=== PATIENT | female | born 1940 | race Caucasian/White ===

== ENCOUNTER → 2016-08-01 | Outpatient (REF) | payer MEDICARE ==
[2016-08-01 18:52] LABS: MEAN CORPUSCULAR HEMOGLOBIN 30.6 pg (27.0-33.0); MEAN CORPUSCULAR HGB CONC 31.1 g/dl (32.0-36.5); MEAN CORPUSCULAR VOLUME 98.4 fl (80.0-96.0); RED CELL DISTRIBUTION WIDTH 12.4 % (11.5-14.5); WHITE BLOOD COUNT 6.1 K/mm3 (4.0-10.0)
[2016-08-01 19:10] LABS: ALBUMIN 3.5 GM/DL (3.2-5.2); ALBUMIN/GLOBULIN RATIO 1.13 (1.00-1.93); ALKALINE PHOSPHATASE 92 U/L (45-117); ALT/SGPT 33 U/L (12-78); ANION GAP 6 MEQ/L (8-16); AST/SGOT 27 U/L (15-37); BILIRUBIN,TOTAL 0.5 MG/DL (0.2-1.0); BLOOD UREA NITROGEN 20 MG/DL (7-18); CALCIUM LEVEL 9.3 MG/DL (8.8-10.2); CARBON DIOXIDE LEVEL 32 MEQ/L (21-32); CHLORIDE LEVEL 103 MEQ/L (98-107); CHOLESTEROL LEVEL 153 MG/DL (<200); CREATININE FOR GFR 0.69 MG/DL (0.55-1.02); GLOMERULAR FILTRATION RATE > 60.0 (>39); GLUCOSE, FASTING 91 MG/DL (83-110); POTASSIUM SERUM 4.5 MEQ/L (3.5-5.1); SODIUM LEVEL 141 MEQ/L (136-145); TOTAL PROTEIN 6.6 GM/DL (6.4-8.2); TRIGLYCERIDES LEVEL 187 MG/DL (<150)
== END ==
LOC: M LAB REF 17:08
PROVIDERS: ATTEND Physician Assistant
DX: I25.10 Atherosclerotic heart disease of native coronary artery without angina pectoris (principal); I10 Essential (primary) hypertension; E78.00 Pure hypercholesterolemia, unspecified

== ENCOUNTER → 2016-08-12 | Outpatient (CLI) | payer MEDICARE ==
[2016-08-12 17:26] LABS: MAGNESIUM LEVEL 1.7 MG/DL (1.8-2.4)
== END ==
LOC: M WUC 14:54
PROVIDERS: ATTEND Physician Assistant
DX: I49.1 Atrial premature depolarization (principal)

== ENCOUNTER 2017-01-07 05:53 | Day surgery (SDC) | payer MEDICARE ==
[~2017-01-07] VITALS: Ht 152.4 cm; Wt 58.5 kg
[~2017-01-07 05:53] MED LIST: ASPI81CH32 PO; ATEN50TA2 PO; ATOR40TA75 PO; CLOB-49 EX; ENAL10TA2 PO; ESTR0.059 TOP; MULT1CHW39 PO; NITR0.4S14 SL; VENL37.598 PO; VITAD1000T PO; ZANTTAB PO
[2017-01-07] MEDS ORDERED: LR 1,000 ML IV ONE (06:15)
[2017-01-07] MEDS ORDERED: LIDOCAINE 1% MDV 20ML VIAL SC ONE (06:30)
[2017-01-07] MEDS ORDERED: MIDAZOLAM INJ 2 MG/2 ML VIAL (J2250) As Ordered ONE (07:06)
[2017-01-07] MEDS ORDERED: fentaNYL 100 MCG/2 ML INJECTION (J3010) As Ordered ONE (07:06)
[2017-01-07] MEDS ORDERED: LIDOCAINE W/EPINEPHRINE 1% 20ML VIAL As Ordered ONE (07:39)
[2017-01-07] MEDS ORDERED: LIDOCAINE 2% INJ 100 MG/5 ML SDV (FOR ANES.) As Ordered ONE (08:14)
[2017-01-07] MEDS ORDERED: PROPOFOL 200 MG/20 ML VIAL As Ordered ONE (08:14)
[2017-01-07] MEDS ORDERED: ePHEDrine SULFATE 25 MG/5 ML(5MG/ML) SYRINGE As Ordered ONE (08:14)
[2017-01-07] MEDS ORDERED: ONDANSETRON 4MG/2ML VIAL (J2405) As Ordered ONE (08:14)
[2017-01-07 09:30] VITALS: BP 130/99
--- NOTE | 2017-01-07 10:13 | RO ---
DATE OF PROCEDURE: 01/07/2017 PREOPERATIVE DIAGNOSIS: Recurrent left forehead mass. POSTOPERATIVE DIAGNOSIS: Recurrent left forehead mass. PROCEDURE PERFORMED: Excision of 3.5 cm left forfehead mass, and 4.0 cm layered skin closure. SURGEON: Dr. Trell Almendarez WAITER/WAITRESS TOURIST CLASS: ANESTHESIA: Local with 1% Xylocaine with epinephrine and monitored anesthesia care INDICATIONS FOR PROCEDURE: The patient is a 76-year-old woman with a long history of a subcutaneous mass of the left side of the forehead. She reports that she has had this excised twice before with findings of lipomatous tissue. This has been growing now for the last 20 years or so and she would like to have it removed. OPERATIVE PROCEDURE: The patient was placed supine on the operating table. She received sedation from anesthesia. The forehead was prepped and draped sterilely. 1% Xylocaine with epinephrine was infiltrated widely around the base of the lesion. An approximately 4 cm transverse incision was made over the center of the mass taking a small ellipse of skin. The incision was deepened into the subcutaneous tissues and then dissection proceeded superiorly and inferiorly elevating the skin off of the underlying fibrofatty mass. There was scarring evident from her two prior excisions, particularly beneath the superior flap. The incision was carried down to the underlying lesion. The edges of the mass were identified and the mass was elevated off of the underlying tissues and removed intact. At the center of the lesion there did not appear to be any remaining frontalis muscle or fascia between the lesion and the skull. The mass was 3.5 cm maximally. This was sent for permanent pathology. The skin was elevated slightly further on all sides to allow better approximation. A thinned portion of the skin along the inferior skin flap was excised by excising a rim of approximately 6 mm of skin. The wound was inspected for hemostasis, which was excellent. The skin edges were brought into apposition with multiple simple buried sutures of #4-0 chromic. The wound was then closed with a running subcuticular #5-0 Vicryl and Steri-Strips. A light dressing was applied. The patient tolerated the procedure well without apparent complication. She was awakened and transported to advanced recovery. [facility]
== END 2017-01-07 10:00 | disposition home or self-care (01) ==
LOC: M SDC 05:53
PROVIDERS: ATTEND Surgery
DX: R22.0 Localized swelling, mass and lump, head (principal); I10 Essential (primary) hypertension; E78.00 Pure hypercholesterolemia, unspecified; I25.2 Old myocardial infarction; R23.3 Spontaneous ecchymoses; L40.9 Psoriasis, unspecified; J44.9 Chronic obstructive pulmonary disease, unspecified; Z88.5 Allergy status to narcotic agent; Z91.048 Other nonmedicinal substance allergy status; Z79.899 Other long term (current) drug therapy; Z79.82 Long term (current) use of aspirin; Z87.891 Personal history of nicotine dependence
CPT/HCPCS: 11444; 12052; 88307; J2250; J2405; J3010

== ENCOUNTER → 2017-01-30 | Outpatient (CLI) | payer MEDICARE ==
[2017-01-30 17:32] LABS: ALBUMIN 3.6 GM/DL (3.2-5.2); ALBUMIN/GLOBULIN RATIO 1.03 (1.00-1.93); ALKALINE PHOSPHATASE 97 U/L (45-117); ALT/SGPT 34 U/L (12-78); ANION GAP 7 MEQ/L (8-16); AST/SGOT 24 U/L (15-37); BILIRUBIN,TOTAL 0.4 MG/DL (0.2-1.0); BLOOD UREA NITROGEN 23 MG/DL (7-18); CALCIUM LEVEL 8.9 MG/DL (8.8-10.2); CARBON DIOXIDE LEVEL 28 MEQ/L (21-32); CHLORIDE LEVEL 103 MEQ/L (98-107); CREATININE FOR GFR 0.75 MG/DL (0.55-1.02); GLOMERULAR FILTRATION RATE > 60.0 (>39); GLUCOSE, FASTING 91 MG/DL (83-110); POTASSIUM SERUM 4.4 MEQ/L (3.5-5.1); SODIUM LEVEL 138 MEQ/L (136-145); TOTAL PROTEIN 7.1 GM/DL (6.4-8.2)
== END ==
LOC: M WUC 14:24
PROVIDERS: ATTEND Physician Assistant
DX: I25.10 Atherosclerotic heart disease of native coronary artery without angina pectoris (principal); E78.2 Mixed hyperlipidemia; I10 Essential (primary) hypertension

== ENCOUNTER → 2017-08-21 | Outpatient (CLI) | payer MEDICARE ==
[2017-08-21 18:40] LABS: HEMOGLOBIN 14.6 g/dl (12.0-15.5); MEAN CORPUSCULAR HEMOGLOBIN 31.7 pg (27.0-33.0); MEAN CORPUSCULAR HGB CONC 32.4 g/dl (32.0-36.5); MEAN CORPUSCULAR VOLUME 97.6 fl (80.0-96.0); PLATELET COUNT, AUTOMATED 220 10^3/uL (150-450); RED BLOOD COUNT 4.61 10^6/uL (4.00-5.40); RED CELL DISTRIBUTION WIDTH 12.6 % (11.5-14.5); WHITE BLOOD COUNT 5.4 10^3/uL (4.0-10.0)
[2017-08-21 19:04] LABS: ALBUMIN 3.4 GM/DL (3.2-5.2); ALBUMIN/GLOBULIN RATIO 1.03 (1.00-1.93); ALKALINE PHOSPHATASE 90 U/L (45-117); ALT/SGPT 37 U/L (12-78); ANION GAP 6 MEQ/L (8-16); AST/SGOT 34 U/L (7-37); BILIRUBIN,TOTAL 0.5 MG/DL (0.2-1.0); BLOOD UREA NITROGEN 23 MG/DL (7-18); CALCIUM LEVEL 8.8 MG/DL (8.8-10.2); CARBON DIOXIDE LEVEL 29 MEQ/L (21-32); CHLORIDE LEVEL 107 MEQ/L (98-107); CHOLESTEROL LEVEL 148 MG/DL (<200); CHOLESTEROL RISK RATIO 2.901 (<5); CREATININE FOR GFR 0.75 MG/DL (0.55-1.30); GLOMERULAR FILTRATION RATE > 60.0 (>39); GLUCOSE, FASTING 85 MG/DL (70-100); HDL CHOLESTEROL 51 MG/DL (>40); LDL CHOLESTEROL 72.4 MG/DL (<100); MAGNESIUM LEVEL 1.8 MG/DL (1.8-2.4); NON-HDL-C 97 MG/DL; POTASSIUM SERUM 4.3 MEQ/L (3.5-5.1); SODIUM LEVEL 142 MEQ/L (136-145); TOTAL PROTEIN 6.7 GM/DL (6.4-8.2); TRIGLYCERIDES LEVEL 123 MG/DL (<150)
== END ==
LOC: M WUC 12:49
DX: I25.10 Atherosclerotic heart disease of native coronary artery without angina pectoris (principal)
CPT/HCPCS: 83735

== ENCOUNTER → 2017-12-04 | Outpatient (CLI) | payer MEDICARE ==
[2017-12-05 09:41] LABS: CONTROL LINE HPYORI INT CTR LINE PRESENT; H PYLORI QUALITATIVE IgG NEGATIVE (NEGATIVE)
[2017-12-07 00:06] LABS: H PYLORI SERUM QUANT IGM <9.0 units (0.0-8.9)
== END ==
LOC: M WUC 15:34
DX: K21.9 Gastro-esophageal reflux disease without esophagitis (principal); I25.10 Atherosclerotic heart disease of native coronary artery without angina pectoris; I10 Essential (primary) hypertension; Z23 Encounter for immunization; Z13.820 Encounter for screening for osteoporosis
CPT/HCPCS: 86677

== ENCOUNTER → 2018-01-23 | Outpatient (CLI) | payer MEDICARE ==
[2018-01-23 16:43] LABS: BASO % 0.6 % (0.0-1.0); EOS # 0.6 10^3/uL (0.0-0.50); EOS % 7.7 % (0.0-3.0); HEMATOCRIT 47.2 % (36.0-47.0); HEMOGLOBIN 15.1 g/dl (12.0-15.5); IMMATURE GRANULOCYTE % 0.1 % (0-3.0); LYMPH # 2.3 10^3/uL (1.5-4.5); LYMPH % 32.6 % (24.0-44.0); MEAN CORPUSCULAR HEMOGLOBIN 31.5 pg (27.0-33.0); MEAN CORPUSCULAR VOLUME 98.3 fl (80.0-96.0); MONO # 0.7 10^3/uL (0.0-0.8); MONO % 9.2 % (0.0-5.0); NEUTROPHILS # 3.6 10^3/uL (1.8-7.7); NEUTROPHILS % 49.8 % (36.0-66.0); PLATELET COUNT, AUTOMATED 256 10^3/uL (150-450); RED CELL DISTRIBUTION WIDTH 12.3 % (11.5-14.5); WHITE BLOOD COUNT 7.2 10^3/uL (4.0-10.0)
== END ==
LOC: M WUC 15:18
DX: J44.9 Chronic obstructive pulmonary disease, unspecified (principal)
CPT/HCPCS: 85025

== ENCOUNTER → 2018-08-26 | Outpatient (CLI) | payer MEDICARE ==
[~2018-08-26] MED LIST changes: -ASPI81CH32 PO; +ASPI81CH33 PO; -MULT1CHW39 PO; +MULT200T7 PO
[2018-08-26 16:31] LABS: HEMATOCRIT 46.9 % (36.0-47.0); HEMOGLOBIN 15.2 g/dl (12.0-15.5); MEAN CORPUSCULAR HEMOGLOBIN 31.9 pg (27.0-33.0); MEAN CORPUSCULAR HGB CONC 32.4 g/dl (32.0-36.5); MEAN CORPUSCULAR VOLUME 98.5 fl (80.0-96.0); PLATELET COUNT, AUTOMATED 272 10^3/uL (150-450); RED BLOOD COUNT 4.76 10^6/uL (4.00-5.40); WHITE BLOOD COUNT 5.5 10^3/uL (4.0-10.0)
[2018-08-26 16:38] LABS: ALT/SGPT 47 U/L (12-78); BILIRUBIN,TOTAL 0.5 MG/DL (0.2-1.0); BLOOD UREA NITROGEN 22 MG/DL (7-18); CALCIUM LEVEL 8.8 MG/DL (8.8-10.2); CARBON DIOXIDE LEVEL 28 MEQ/L (21-32); CHLORIDE LEVEL 107 MEQ/L (98-107); CHOLESTEROL LEVEL 147 MG/DL (<200); GLOMERULAR FILTRATION RATE > 60.0 (>39); GLUCOSE, FASTING 87 MG/DL (70-100); HDL CHOLESTEROL 50 MG/DL (>40); SODIUM LEVEL 140 MEQ/L (136-145); TRIGLYCERIDES LEVEL 153 MG/DL (<150)
[2018-08-26 16:39] LABS: ALBUMIN 3.6 GM/DL (3.2-5.2); LDL CHOLESTEROL 66 MG/DL (<100); NON-HDL-C 97 MG/DL; TOTAL PROTEIN 6.6 GM/DL (6.4-8.2)
== END ==
LOC: M WUC 11:10
PROVIDERS: ATTEND Physician Assistant
DX: I25.10 Atherosclerotic heart disease of native coronary artery without angina pectoris (principal); I10 Essential (primary) hypertension; E78.2 Mixed hyperlipidemia

== ENCOUNTER → 2019-01-15 | Outpatient (CLI) | payer MEDICARE ==
[~2019-01-15] MED LIST changes: +CHOL100029 PO; -VITAD1000T PO; +ZANT150T40 PO; -ZANTTAB PO
[2019-01-15 20:27] LABS: BASO % 0.4 % (0.0-1.0); EOS # 0.1 10^3/uL (0.0-0.5); EOS % 1.9 % (0.0-3.0); HEMATOCRIT 49.5 % (36.0-47.0); LYMPH # 1.8 10^3/uL (1.5-5.0); LYMPH % 27.1 % (24.0-44.0); MEAN CORPUSCULAR HEMOGLOBIN 32.5 pg (27.0-33.0); MEAN CORPUSCULAR HGB CONC 32.3 g/dl (32.0-36.5); MEAN CORPUSCULAR VOLUME 100.4 fl (80.0-96.0); MONO # 0.7 10^3/uL (0.0-0.8); NEUTROPHILS # 4.1 10^3/uL (1.5-8.5); NEUTROPHILS % 60.3 % (36.0-66.0); PLATELET COUNT, AUTOMATED 258 10^3/uL (150-450); RED BLOOD COUNT 4.93 10^6/uL (4.00-5.40); WHITE BLOOD COUNT 6.8 10^3/uL (4.0-10.0)
== END ==
LOC: M WUC 16:31
PROVIDERS: ATTEND Internal Medicine
DX: J44.9 Chronic obstructive pulmonary disease, unspecified (principal)
CPT/HCPCS: 36415; 85025; G0463

== ENCOUNTER → 2019-10-18 | Outpatient (CLI) | payer MEDICARE ==
[2019-10-18 15:58] LABS: HEMATOCRIT 47.1 % (36.0-47.0); HEMOGLOBIN 15.3 g/dl (12.0-15.5); MEAN CORPUSCULAR HEMOGLOBIN 31.7 pg (27.0-33.0); MEAN CORPUSCULAR HGB CONC 32.5 g/dl (32.0-36.5); MEAN CORPUSCULAR VOLUME 97.5 fl (80.0-96.0); PLATELET COUNT, AUTOMATED 244 10^3/uL (150-450); RED BLOOD COUNT 4.83 10^6/uL (4.00-5.40); WHITE BLOOD COUNT 5.5 10^3/uL (4.0-10.0)
[2019-10-18 16:00] LABS: ALBUMIN 3.4 GM/DL (3.2-5.2); ALT/SGPT 39 U/L (12-78); BILIRUBIN,TOTAL 0.3 MG/DL (0.2-1.0); BLOOD UREA NITROGEN 24 MG/DL (7-18); CARBON DIOXIDE LEVEL 27 MEQ/L (21-32); CHLORIDE LEVEL 109 MEQ/L (98-107); CHOLESTEROL LEVEL 161 MG/DL (<200); CHOLESTEROL RISK RATIO 3.354 (<5); CREATININE FOR GFR 0.81 MG/DL (0.55-1.30); GLOMERULAR FILTRATION RATE > 60.0 (>32); GLUCOSE, FASTING 86 MG/DL (70-100); HDL CHOLESTEROL 48 MG/DL (>40); LDL CHOLESTEROL 91 MG/DL (<100); NON-HDL-C 113 MG/DL; POTASSIUM SERUM 4.2 MEQ/L (3.5-5.1); SODIUM LEVEL 141 MEQ/L (136-145); TOTAL PROTEIN 6.9 GM/DL (6.4-8.2); TRIGLYCERIDES LEVEL 109 MG/DL (<150)
== END ==
LOC: M WUC 13:28
PROVIDERS: ATTEND Physician Assistant
DX: I25.10 Atherosclerotic heart disease of native coronary artery without angina pectoris (principal); I10 Essential (primary) hypertension; E78.2 Mixed hyperlipidemia

== ENCOUNTER → 2019-12-06 | Outpatient (CLI) | payer MEDICARE ==
[~2019-12-06] MED LIST changes: +ENAL-36 PO; -ENAL10TA2 PO
--- NOTE | 2020-01-17 06:56 | REP ---
RIGHT HIP SERIES: 2-VIEWS HISTORY: Pain in the right hip. History of psoriasis. Rule out bony abnormality. COMPARISON: None. FINDINGS: AP and frog leg views of the right hip demonstrate a smooth rounded femoral head and intact hip joint space. There is mild superior acetabular spurring. Vascular calcification is seen. The visualized right hemipelvis is intact. Symphysis pubis and the visualized SI joint are intact on the right. IMPRESSION: Mild superior acetabular spurring. No acute bony abnormality. Vascular calcification. MTDD
== END ==
LOC: M WUC 14:23
PROVIDERS: ATTEND Physician Assistant
DX: M25.551 Pain in right hip (principal); M76.891 Other specified enthesopathies of right lower limb, excluding foot

== ENCOUNTER 2020-05-30 20:23 | Emergency (ER) | payer MEDICARE ==
[~2020-05-30] VITALS: Ht 152.4 cm; Wt 65.9 kg
[2020-05-30] MEDS: COMBIVENT RESPIMAT 100-20MCG INHALER 4GM INH SCH ×3 (21:05→22:06)
--- NOTE | 2020-05-30 21:17 | REPVR ---
PROCEDURE INFORMATION: Exam: XR Chest, 1 View Exam date and time: 05/30/2020 8:48 PM Age: 80 years old Clinical indication: Other: Dsypnea; Additional info: Dyspnea/cough TECHNIQUE: Imaging protocol: XR of the chest Views: 1 view. COMPARISON: CR Chest, 1 view 11/08/2014 2:28 PM FINDINGS: Lungs: Mildly hyperinflated lungs. Patchy interstitial opacities in the left lung base. Lungs are otherwise clear. Pleural spaces: Unremarkable. No pleural effusion. No pneumothorax. Heart/Mediastinum: Unremarkable. No cardiomegaly. Bones/joints: Skeletal degenerative changes are noted. IMPRESSION: Nonspecific interstitial opacities in the left lung base may be due to developing infection or interstitial lung disease. Electronically signed by: Gato Caro On 05/30/2020 21:17:54 PM
[2020-05-30 21:18] LABS: BASO # 0.1 10^3/uL (0.0-0.2); BASO % 0.7 % (0.0-1.0); EOS # 0.6 10^3/uL (0.0-0.5); EOS % 7.7 % (0.0-3.0); HEMATOCRIT 47.8 % (36.0-47.0); HEMOGLOBIN 15.4 g/dl (12.0-15.5); LYMPH # 1.1 10^3/uL (1.5-5.0); LYMPH % 13.4 % (24.0-44.0); MEAN CORPUSCULAR HEMOGLOBIN 31.6 pg (27.0-33.0); MEAN CORPUSCULAR HGB CONC 32.2 g/dl (32.0-36.5); MEAN CORPUSCULAR VOLUME 98.2 fl (80.0-96.0); MONO # 0.5 10^3/uL (0.0-0.8); MONO % 5.7 % (0.0-5.0); NEUTROPHILS # 5.9 10^3/uL (1.5-8.5); NEUTROPHILS % 72.3 % (36.0-66.0); PLATELET COUNT, AUTOMATED 219 10^3/uL (150-450); RED BLOOD COUNT 4.87 10^6/uL (4.00-5.40); WHITE BLOOD COUNT 8.2 10^3/uL (4.0-10.0)
--- OUTSIDE RECORDS SUMMARY | 2020-05-30 21:23 | CCD ---
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 057497882397974 Problem Chronic obstructive pulmonar y disease with acute lower respiratory infection J44.0 Active 405090438035703 Problem Systemic hypertension I10 Active 66009487 Problem Pure hypercholesterolemia, unspecified E78.00 A ctive 550055885 Problem Coronary artery disease invo lving [place] heart without angina pectoris, unspecified vessel or lesion type I25.10 Active 53 371648 Problem Gastroesophageal reflux disease without esophagitis K21.9 Active 048148111 Problem Anxiety F41.9 Active 07245293 ALLERGIES Allergen (clinical drug ingredient) Drug/Non Drug Allergy do cumented on EMR Reaction Allergy Type Onset Date Status Codeine Phosphate(NDC Code:[address]-13) Nausea/Vomiting Drug Allergy Active Iodine(NDC Code:98670-72897) Hives Drug Allergy Active meperidine Demerol(NDC Code:[address]-54) Nausea/Vomiting Drug Aller gy Active ENCOUNTERS from 1940 to 2020-04-19 Encounter Location Date Provider Diagnosis [facility] [place] [address] Nov, Priscilla Lopez Gastroesophageal reflux disease without esophagitis K21.9 ; Atherosclerotic heart disease of [place] coronary artery without angina pectoris I25.10 ; Systemic hypertension I10 ; Encounter for immunization Z23 ; Osteoporosis screening Z13.820 and Screening mammogram, encounter for Z12.31 IMMUNIZATIONS Vaccine Route Administration Date Status Influenza (High Dose 65 & up) IM Intramuscular Feb 17, 2014 A dministered Influenza (High Dose 65 & up) Unknown Jan 05, 2016 Ad ministered Pneumococcal Adult 0.5mL (Pneumovax 23) Unknown Mar 09, 2009 Administered Pneumococcal Adult 0.5mL (Pneumovax 23) Unknown Feb 21, 2004 Administered Influenza (6mo & up) Fluzone IM Intramuscular Feb 04, 2013 Ad ministered Influenza (6mo & up) Fluzone IM Intramuscular Jan 27, 2012 Ad ministered Influenza (6mo & up) Fluzone IM Intramuscular Feb 18, 2011 Ad ministered Influenza (6mo & up) Fluzone IM Intramuscular Feb 12, 2010 Ad ministered SOCIAL HISTORY Tobacco Use: Social History Observation Description Date Details (start date - stop date) Former Smoker Sex Assigned At : Social History Observation Description Sex Assigned At Unknown Audit Question Answer Notes Total Score: 0 Interpretation: Alcohol Education Drug and Alcohol Question Answer Notes Total Score: 0 Interpretation: No problems reported Alcohol Screening: Question Answer Notes Did you have a drink containing alcohol in the past year? Ye s Points 1 Interpretation Negative How often did you have six or more drinks on one occas ion in the past year? Never (0 points) How many drinks did you have on a typica l day when you were drinking in the past year? 1 or 2 (0 points) How often did you have a drink containing alcohol in t he past year? Monthly or less (1 point) Tobacco Use: Question Answer Notes Are you a: former smoker How long has it been since you last smoked? > 10 years REASON FOR REFERRAL No Information VITAL SIGNS Weight 143.8 lbs Nov, Height 60 in Nov, BMI 28.08 kg/m2 Nov, Heart Rate 85 /min Nov, Respiratory Rate 18 /min Nov, Temperature 97.5 degrees Fahrenheit Nov, Oximetry 93 Nov, Blood pressure systolic 122 mm Hg Nov, Blood pressure diastolic 70 mm Hg Nov, MEDICATIONS Medication SIG (Take, Route, Frequency, Duration) Notes Start Da te End Date Status Vitamin D 2000 UNIT 1 tablet Orally daily Active Aspirin 81 MG 1 tab(s) Orally Once a day for 90 days Active Venlafaxine HCl 37.5 MG 1 tablet with food Orally Once a day for 90 day(s) Jun, Active Tums 500 MG 2 tablets Orally once a day for 30 day(s) Active Vasotec 10 mg 1/2 tablet daily p.o. 90 days Orally as directed for 90 day(s) Active Lipitor 40 1 tablet Orally Once a day at bedtime for 90 Active VoSoL HC 2-1 % 5 drops into affected ear Ot ic Three times a day as needed for 90 day(s) Jan, Active Estradiol 0.05 MG/24HR 1 patch to skin Transdermal once a week f or 90 day(s) Active Atenolol 50 MG 1 tablet Orally Once a day for 90 day(s) Jan, Active Fluticasone Propionate 50 MCG/ACT 1 spray in each nost ril Nasally Once a day for 30 days Active Pantoprazole Sodium 20 MG 1 tablet Orally Once a day 3 0 minutes prior to first meal of for 90 day(s) Act love Anoro Ellipta umeclidinium 62.5 mcg and vilanterol 25 mcg 1 inhalation orally once daily for 30 Days Jun, Active Nitroglycerin 0.4 MG 1 tablet under the tongue ev alton five mins x3 doses prn for chest pain Sublingual as needed for chest pain for 30 day(s) Active Lipitor 40 MG 1 tablet Orally Once a day at bedtime for 90 day (s) Jan, Active Multivitamins 1 capsule Orally daily Active Magnesium Oxide 400 MG 1 tablet as needed Orally Once a day Active PROCEDURES No Information RESULTS Component Value Reference Range H PYLORI QUALITATIVE IGG Reviewed date:12/09/2017 00:02:05 Interpretation: Performing Lab:[facility],[address] [place] [address], ,[place] [address] H PYLORI QUALITATIVE IgG NEGATIVE NEGATIVE H PYLORI SERUM QUANT IGM Reviewed date:12/09/2017 00:02:13 Interpretation: Performing Lab:[facility],[address] [facility], [place] [address] H PYLORI SERUM QUANT IGM <9.0 0.0-8.9 REASON FOR VISIT yearly follow up up/script refills, PHQ-2 done, AUDIT/DAST done, chart reviewed, REFUSES PREVNAR BUT DID HAVE PNEUMO 23 MEDICAL (GENERAL) HISTORY Type Description Date Medical History Hypercholesterolemia Medical History [place] in 10/06/2004 s/p RCA sten ts x 3, complicated by complete heart block and cardiogenic shock Medical History Coronary artery disease Medical History Anxiety Medical History Restless leg syndrome Medical History Systemic hypertension Medical History Psoriasis Medical History Hot flashes Surgical History Partial hysterectomy 06/1985 for DUB Surgical History Rectocele repair 08/1988 Surgical History Sigmoidoscopy >20 years ago for hemorrho ids Surgical History Appendectomy Goals Section No Information Health Concerns No Information MEDICAL EQUIPMENT No Information MENTAL STATUS No Information FUNCTIONAL STATUS No Information ASSESSMENTS Encounter Date Diagnosis Assessment Notes Treatment Notes Treatm ent Clinical Notes Nov, Gastroesophageal reflux dise ase without esophagitis (ICD-10 - K21.9) Start PPI. Adviced to take in the morning 30 minutes prior to eating. Will reasses is 8-12 weeks if symptoms improved. Will test H.pyloric. Adviced to avoid triggers such as acidic food, spicy, milk, chocolate or anything which will increase acid production. also adivced to avoid laying down 1 hour after eating. If acid reflux continue to persist will consider rantidine. The patient refuses to have a endoscopy at all in the future if it warrented as well. Nov, Atherosclerotic heart diseas e of [place] coronary artery without angina pectoris (ICD-10 - I25.10) for her age. remain on moderate intensity statin therapy. Remain on atorvastatin 40 mg. last cardio visit. 08/28/17 Nov, Systemic hypertension (ICD-10 - I10) continue with vasotec (enalapril). stable Nov, Encounter for immunization (ICD-10 - Z23) Patient had gotten the Pneumovax 23 in 2008. She refuses the prevar for she states to have gotten it in the past. There is no recording indicting as such and the patient still refuses. Nov, Osteoporosis screening (ICD-10 - Z13.820) Continue with Vitamin D supplementation. FRAX score withuit BMD - hip fracture 5.8 which greater than 3% will probably benefit with bisphosphate. Patient refuses DEXA scan and does not want to be placed on bisphophate. For she states in the past was informed never to take it. Educated the patient the risk and benefit of the medication and her risk of hip fracture. The patient still continues to refuse. Nov, Screening mammogram, encounter for (ICD-10 - Z12 .31) Patient refused to have mammogram for she states she was told a couple year ago that she does not need a mammogram. I informed the patient it is recommeneded by the USPTF for her age group to have a mammogram and because we do not have any on record it would be in her best interest. The patient states she understand but still continue to refuse. Nov, Other Colonscopy. - for her age group for 76-85 year is C. Never been screened previously so reommend to have at least one. The patient refuses to have one. She was educated on why we would need to asses for colon cancer and the patient still continues to refuse. No hepatisis C screening. - no high risk behavors and not born between 1945- 1965. Lung cancer screening- not needed. - -quit smoking more than 15 years ago and have less than 30 pack years. Cervical Cancer screening - not recommended. Partial hysterectomy 08/1985 and the patient refuses any screening test. PLAN OF TREATMENT Medication Medication Name Sig Start Date Stop Date VoSoL HC 2-1 % 5 drops into affected ear Ot ic Three times a day as needed for 90 day(s) Jan, Lipitor 40 MG 1 tablet Orally Once a day at bedtime for 90 day (s) Jan, Lipitor 40 1 tablet Orally Once a day at bedtime for 90 Vasotec 10 mg 1/2 tablet daily p.o. 90 days Orally as directed for 90 day(s) Pantoprazole Sodium 20 MG 1 tablet Orally Once a day 3 0 minutes prior to first meal of day for 90 day(s) Anoro Ellipta umeclidinium 62.5 mcg and vilanterol 25 mcg 1 inhalation orally once daily for 30 Days Jun, Fluticasone Propionate 50 MCG/ACT 1 spray in each nost ril Nasally Once a day for 30 days Atenolol 50 MG 1 tablet Orally Once a day for 90 day(s) Jan, Venlafaxine HCl 37.5 MG 1 tablet with food Orally Once a day for 90 day(s) Jun, Treatment Notes Assessment Notes Clinical Notes Gastroesophageal reflux disease without esophagitis Start PPI. Adviced to take in the morning 30 minutes prior to eating. Will reasses is 8-12 weeks if symptoms improved. Will test H.pyloric. Adviced to avoid triggers such as acidic food, spicy, milk, chocolate or anything which will increase acid production. also adivced to avoid laying down 1 hour after eating. If acid reflux continue to persist will consider rantidine. The patient refuses to have a endoscopy at all in the future if it warrented as well. Atherosclerotic heart disease of ey[place] coronary arter y without angina pectoris for her age. remain on moderate intensit y statin therapy. Remain on atorvastatin 40 mg. last cardio visit. 08/28/17 Systemic hypertension continue with vaso raghav (enalapril). stable Encounter for immunization Patient had gerald romo the Pneumovax 23 in 2008. She refuses the prevar for she states to have gotten it in the past. There is no recording indicting as such and the patient still refuses. Osteoporosis screening Continue with Vit james D supplementation. FRAX score withuit BMD - hip fracture 5.8 which greater than 3% will probably benefit with bisphosphate. Patient refuses DEXA scan and does not want to be placed on bisphophate. For she states in the past was informed never to take it. Educated the patient the risk and benefit of the medication and her risk of hip fracture. The patient still continues to refuse. Screening mammogram, encounter for Kaylen crook refused to have mammogram for she states she was told a couple year ago that she does not need a mammogram. I informed the patient it is recommeneded by the USPTF for her age group to have a mammogram and because we do not have any on record it would be in her best interest. The patient states she understand but still continue to refuse. Next Appt Details 8 weeks Reason:gerd Follow Up:8 weeksgerd Insurance Providers Payer Name Payer Address Payer Phone Insured Name Patient Relati onship to Insured Coverage Start Date Coverage End Date MEDICARE Part A and B [address] [facility] [id number] [phone] TAMAR GROSS self [facility] HEALTH C[facility] CLAIM DIV [address] [facility] [id number] TAMAR GROSS self
--- OUTSIDE RECORDS SUMMARY | 2020-05-30 21:23 | CCD ---
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 75042649 Problem Chronic obstructive pulmonary disease, unspecified COPD ty pe J44.9 Active 35810741 Problem 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 144418538795415 Problem Chronic obstructive pulmonar y disease with acute lower respiratory infection J44.0 Active 786383013084821 Problem Systemic hypertension I10 Active 46533540 Problem Pure hypercholesterolemia, unspecified E78.00 A ctive 870398070 Problem Coronary artery disease invo lving [place] heart without angina pectoris, unspecified vessel or lesion type I25.10 Active 53 734433 Problem Gastroesophageal reflux disease without esophagitis K21.9 Active 734636437 Problem Anxiety F41.9 Active 71041304 ALLERGIES Allergen (clinical drug ingredient) Drug/Non Drug Allergy do cumented on EMR Reaction Allergy Type Onset Date Status Codeine Phosphate(NDC Code:[address]-31) Nausea/Vomiting Drug Allergy Active Iodine(NDC Code:74512-59738) Hives Drug Allergy Active meperidine Demerol(NDC Code:[address]-87) Nausea/Vomiting Drug Aller gy Active ENCOUNTERS from 1940 to 2020-05-02 Encounter Location Date Provider Diagnosis [facility] [place] [address] Nov, Priscilla Lopez Gastroesophageal reflux disease without esophagitis K21.9 ; Atherosclerotic heart disease of [place] coronary artery without angina pectoris I25.10 ; Systemic hypertension I10 ; Encounter for immunization Z23 ; Osteoporosis screening Z13.820 and Screening mammogram, encounter for Z12.31 IMMUNIZATIONS Vaccine Route Administration Date Status Influenza (High Dose 65 & up) Unknown Jan 05, 2016 Ad ministered Influenza (High Dose 65 & up) IM Intramuscular Feb 17, 2014 A dministered Pneumococcal Adult 0.5mL (Pneumovax 23) Unknown Mar [...] Reviewed date:12/09/2017 00:02:05 Interpretation: Performing Lab:[facility],[address] [place] [address], ,[place] [address] H PYLORI QUALITATIVE IgG NEGATIVE NEGATIVE H PYLORI SERUM QUANT IGM Reviewed date:12/09/2017 00:02:13 Interpretation: Performing Lab:[facility],[address] [facility], [place] [address] H PYLORI SERUM QUANT IGM <9.0 0.0-8.9 REASON FOR VISIT yearly follow up up/script refills, PHQ-2 done, AUDIT/DAST done, chart reviewed, REFUSES PREVNAR BUT DID HAVE PNEUMO 23 MEDICAL (GENERAL) HISTORY Type Description Date Medical History Hypercholesterolemia Medical History [place] in 10/06/2004 s/p RCA sten ts x [...] well. Nov, Atherosclerotic heart diseas e of [place] coronary artery without angina pectoris (ICD-10 - [...] the patient it is recommeneded by the [facility] for her age group to have a [...] warrented as well. Atherosclerotic heart disease of [place] coronary arter y without angina pectoris for [...] Date MEDICARE Part A and B [address] [facility] [address] [phone] TAMAR GROSS self [facility] HEALTH CARE [facility] CLAIM DIV [address] [facility] [id number] TAMAR GROSS self
--- OUTSIDE RECORDS SUMMARY | 2020-05-30 21:23 | CCD ---
Author Author [facility] Organization [facility] Address Unknown Phone Unavailable Care Team Providers Care Glove Presser Name Role Phone Shiloh Simmons Unavailable Unavailable Symenow, Shiloh Latif PA Unavailable Unavailable Symenow, Shiloh Latif PA Unavailable Unavailable Symenow, Shiloh Latif PA Unavailable Unavailable Symenow, Shiloh Latif PA Unavailable Unavailable Symenow, Shiloh Latif PA Unavailable Unavailable Symenow, Shiloh Latif PA Unavailable Unavailable Symenow, Shiloh Latif PA Unavailable Unavailable Symenow, Shiloh Latif PA Unavailable Unavailable Symenow, Shiloh Latif PA Unavailable Unavailable Symenomary, Shiloh Latif PA Unavailable Unavailable Symenomary, Shiloh Latif PA Unavailable Unavailable Symenow, Shiloh Latif PA Unavailable Unavailable Symenomary, Shiloh Latif PA Unavailable Unavailable Symenow, Shiloh Latif PA Unavailable Unavailable Symenomary, Shiloh Latif PA Unavailable Unavailable Symenomary, Shiloh Latif PA Unavailable Unavailable Symenow, Shiloh Latif PA Unavailable Unavailable Symenow, Shiloh Latif PA Unavailable Unavailable Symenow, Shiloh Bhavya PA Unavailable Unavailable Symenow, Shiloh Bhavya PA Unavailable Unavailable Symenow, Shiloh Bhavya PA Unavailable Unavailable Symenow, Shiloh Bhavya PA Unavailable Unavailable Symenow, Shiloh Bhavya PA Unavailable Unavailable Symenow, Shiloh Bhavya PA Unavailable Unavailable Symenow, Shiloh Bhavya PA Unavailable Unavailable Symenow, Shiloh Bhavya PA Unavailable Unavailable Symenow, Shiloh Bhavya PA Unavailable Unavailable Symenow, Shiloh Bhavya PA Unavailable Unavailable Symenow, Shiloh Bhavya PA Unavailable Unavailable Symenow, Shiloh Bhavya PA Unavailable Unavailable Symenow, Shiloh Bhavya PA Unavailable Unavailable Symenow, Shiloh Bhavya PA Unavailable Unavailable Symenow, Shiloh Bhavya PA Unavailable Unavailable Symenow, Shiloh Bhavya PA Unavailable Unavailable Symenow, Shiloh Bhavya PA Unavailable Unavailable Neelima, Rafa PA Unavailable Unavailable Neelima, Rafa PA Unavailable Unavailable Neelima, Rafa PA Unavailable Unavailable Neelima, Rafa PA Unavailable Unavailable Neelima, Rafa PA Unavailable Unavailable Neelima, Rafa PA Unavailable Unavailable Neelima, Rafa PA Unavailable Unavailable Neelima, Rafa PA Unavailable Unavailable Neelima, Rafa PA Unavailable Unavailable Neelima, Rafa PA Unavailable Unavailable Neelima, Rafa PA Unavailable Unavailable Neelima, Rafa PA Unavailable Unavailable Neelima, Rafa PA Unavailable Unavailable Neelima, Rafa PA Unavailable Unavailable Neelima, Rafa PA Unavailable Unavailable Neelima, Rafa PA Unavailable Unavailable Neelima, Rafa PA Unavailable Unavailable Neelima, Rafa PA Unavailable Unavailable Neelima, Rafa PA Unavailable Unavailable Neelima, Rafa PA Unavailable Unavailable Neelima, Rafa PA Unavailable Unavailable Neelima, Rafa PA Unavailable Unavailable Neelima, Rafa PA Unavailable Unavailable Neelima, Rafa PA Unavailable Unavailable Neelima, Rafa PA Unavailable Unavailable Neelima, Rafa PA Unavailable Unavailable Neelima, Rafa PA Unavailable Unavailable Neelima, Rafa PA Unavailable Unavailable Neelima, Rafa PA Unavailable Unavailable Neelima, Rafa PA Unavailable Unavailable Neelima, Rafa PA Unavailable Unavailable Neelima, Rafa PA Unavailable Unavailable Neelima, Rafa PA Unavailable Unavailable Neelima, Rafa PA Unavailable Unavailable Neelima, Rafa PA Unavailable Unavailable Neelima, Rafa PA Unavailable Unavailable Neelima, Rafa PA Unavailable Unavailable Neelima, Rafa PA Unavailable Unavailable Neelima, Rafa PA Unavailable Unavailable Neelima, Rafa PA Unavailable Unavailable Neelima, Rafa PA Unavailable Unavailable Neelima, Rafa PA Unavailable Unavailable Neelima, Rafa PA Unavailable Unavailable Neelima, Rafa PA Unavailable Unavailable Neelima, Rafa PA Unavailable Unavailable Neelima, Rafa PA Unavailable Unavailable Neelima, Rafa PA Unavailable Unavailable Neelima, Rafa PA Unavailable Unavailable Neelima, Rafa PA Unavailable Unavailable OBINNA-STAN, ELVI DO Unavailable Unavailable OBINNA-STAN, ELVI DO Unavailable Unavailable OBINNA-STAN, ELVI DO Unavailable Unavailable OBINNA-STAN, ELVI DO Unavailable Unavailable OBINNA-STAN, ELVI DO Unavailable Unavailable OBINNA-STAN, ELVI DO Unavailable Unavailable OBINNA-STAN, ELVI DO Unavailable Unavailable OBINNA-STAN, ELVI DO Unavailable Unavailable OBINNA-STAN, ELVI DO Unavailable Unavailable OBINNA-STAN, ELVI DO Unavailable Unavailable OBINNA-STAN, ELVI DO Unavailable Unavailable OBINNA-STAN, ELVI DO Unavailable Unavailable OBINNA-STAN, ELVI DO Unavailable Unavailable OBINNA-STAN, ELVI DO Unavailable Unavailable OBINNA-STAN, ELVI DO Unavailable Unavailable OBINNA-STAN, ELVI DO Unavailable Unavailable OBINNA-STAN, ELVI DO Unavailable Unavailable OBINNA-STAN, ELVI DO Unavailable Unavailable OBINNA-STAN, ELVI DO Unavailable Unavailable OBINNA-STAN, ELVI DO Unavailable Unavailable OBINNA-STAN, ELVI DO Unavailable Unavailable OBINNA-STAN, ELVI DO Unavailable Unavailable OBINNA-STAN, ELVI DO Unavailable Unavailable OBINNA-STAN, ELVI DO Unavailable Unavailable OBINNA-STAN, ELVI DO Unavailable Unavailable OBINNA-STAN, ELVI DO Unavailable Unavailable OBINNA-STAN, ELVI DO Unavailable Unavailable OBINNA-STAN, ELVI DO Unavailable Unavailable OBINNA-STAN, ELVI DO Unavailable Unavailable OBINNA-STAN, ELVI DO Unavailable Unavailable OBINNA-STAN, ELVI DO Unavailable Unavailable OBINNA-STAN, ELVI DO Unavailable Unavailable OBINNA-STAN, ELVI DO Unavailable Unavailable OBINNA-STAN, ELVI DO Unavailable Unavailable OBINNA-STAN, ELVI DO Unavailable Unavailable OBINNA-STAN, ELVI DO Unavailable Unavailable OBINNA-STAN, ELVI DO Unavailable Unavailable OBINNA-STAN, ELVI DO Unavailable Unavailable OBINNA-STAN, ELVI DO Unavailable Unavailable OBINNA-STAN, ELVI DO Unavailable Unavailable OBINNA-STAN, ELVI DO Unavailable Unavailable OBINNA-STAN, ELVI DO Unavailable Unavailable OBINNA-STAN, ELVI DO Unavailable Unavailable OBINNA-STAN, ELVI DO Unavailable Unavailable OBINNA-STAN, ELVI DO Unavailable Unavailable OBINNA-STAN, ELVI DO Unavailable Unavailable OBINNA-STAN, ELVI DO Unavailable Unavailable OBINNA-STAN, ELVI DO Unavailable Unavailable OBINNA-STAN, ELVI DO Unavailable Unavailable OBINNA-STAN, ELVI DO Unavailable Unavailable OBINNA-STAN, ELVI DO Unavailable Unavailable OBINNA-STAN, ELVI DO Unavailable Unavailable OBINNA-STAN, ELVI DO Unavailable Unavailable OBINNA-STAN, ELVI DO Unavailable Unavailable OBINNA-STAN, ELVI DO Unavailable Unavailable OBINNA-STAN, ELVI DO Unavailable Unavailable OBINNA-STAN, ELVI DO Unavailable Unavailable OBINNA-STAN, ELVI DO Unavailable Unavailable OBINNA-STAN, ELVI DO Unavailable Unavailable OBINNA-STAN, ELVI DO Unavailable Unavailable OBINNA-STAN, ELVI DO Unavailable Unavailable OBINNA-STAN, ELVI DO Unavailable Unavailable OBINNA-STAN, ELVI DO Unavailable Unavailable OBINNA-STAN, ELVI DO Unavailable Unavailable OBINNA-STAN, ELVI DO Unavailable Unavailable OBINNA-STAN, ELVI DO Unavailable Unavailable OBINNA-STAN, ELVI DO Unavailable Unavailable OBINNA-STAN, ELVI DO Unavailable Unavailable OBINNA-STAN, ELVI DO Unavailable Unavailable OBINNA-STAN, ELVI DO Unavailable Unavailable OBINNA-STAN, ELVI DO Unavailable Unavailable OBINNA-STAN, ELVI DO Unavailable Unavailable OBINNA-STAN, ELVI DO Unavailable Unavailable OBINNA-STAN, ELVI DO Unavailable Unavailable OBINNA-STAN, ELVI DO Unavailable Unavailable OBINNA-STAN, ELVI DO Unavailable Unavailable OBINNA-STAN, ELVI DO Unavailable Unavailable OBINNA-STAN, ELVI DO Unavailable Unavailable OBINNA-STAN, ELVI DO Unavailable Unavailable OBINNA-STAN, ELVI DO Unavailable Unavailable OBINNA-STAN, ELVI DO Unavailable Unavailable OBINNA-STAN, ELVI DO Unavailable Unavailable Re-disclosure Warning The records that you are about to access may contain information from federally-assisted alcohol or drug abuse programs. If such information is present, then the following federally mandated warning applies: This information has been disclosed to you from records protected by federal confidentiality rules (42 CFR part 2). The federal rules prohibit you from making any further disclosure of this information unless further disclosure is expressly permitted by the written consent of the person to whom it pertains or as otherwise permitted by 42 CFR part 2. A general authorization for the release of medical or other information is NOT sufficient for this purpose. The Federal rules restrict any use of the information to criminally investigate or prosecute any alcohol or drug abuse patient.The records that you are about to access may contain highly sensitive health information, the redisclosure of which is protected by Article 27-F of the [facility] Public Health law. If you continue you may have access to information: Regarding HIV / AIDS; Provided by facilities licensed or operated by the [facility] Office of Mental Health; or Provided by the [facility] Office for People With Developmental Disabilities. If such information is present, then the following [facility] mandated warning applies: This information has been disclosed to you from confidential records which are protected by state law. State law prohibits you from making any further disclosure of this information without the specific written consent of the person to whom it pertains, or as otherwise permitted by law. Any unauthorized further disclosure in violation of state law may result in a fine or fci sentence or both. A general authorization for the release of medical or other information is NOT sufficient authorization for further disc losure. Family History Family Member Name Family Member Gender Family Member Status Date o f Status Description Data Source(s) Unknown Unknown Problem [facility] ([facility]) Unknown Unknown Problem [facility] ([facility]) Unknown Unknown Problem [facility] ([facility] Unknown Unknown Problem [facility] ([facility] ) Encounters Encounter Providers Location Date Indications Data Source(s ) Outpatient Attender: ELVI ARIAS [facility] 02/02/2020 04:20:00 PM EDT MEDENT ([facility]) Outpatient Attender: ELVI ARIAS [facility] 01/27/2020 01:10:00 PM EDT MEDENT ([facility]) Outpatient Attender: Bhavya MACIEL Main Office 12/09/2019 01:30:00 PM EDT MEDENT ([facility]) Outpatient Attender: Rafa MACIEL [facility] 10/27/2019 02:40:00 PM EDT MEDENT ([facility]) [address] [address] 07/12/2019 12:00:00 AM EDT eCW1 ([facility]) [address] [address] 07/07/2019 12:00:00 AM EDT eCW1 ([facility]) [address] [address] 07/06/2019 12:00:00 AM EDT eCW1 ([facility]) [address] [address] 07/06/2019 12:00:00 AM EDT eCW1 ([facility]) Medications Medication Brand Name Start Date Product Form Dose Route Admi nistrative Instructions Pharmacy Instructions Status Indications Reaction Description Data Source(s) meloxicam 7.5 MG Oral Tablet Meloxicam 02/02/2020 12:00:00 AM EDT ORAL active MEDENT ([facility]) Acetaminophen 300 MG / butalbital 50 MG / Caffeine 40 MG Oral Capsule [Fioricet] Fioricet 01/27/2020 12:00:00 AM EDT ORAL complete d MEDENT ([facility]) Esomeprazole 20 MG Delayed Release Oral Capsule [Nexium] Nex ium 12/08/2019 12:00:00 AM EDT ORAL active M EDENT ([facility]) Clobetasol Propionate E Clobetasol Propionate E 10/27/2019 12:00:00 A M EDT TOPICAL active MEDENT ([facility]) Anoro Ellipta umeclidinium 62.5 mcg and vilanterol 25 mcg UN K 07/12/2019 12:00:00 AM EDT active Anoro Ellipta umeclidinium 62.5 mcg and vilanterol 25 mcg eCW1 ([facility]) Anoro Ellipta umeclidinium 62.5 mcg and vilanterol 25 mcg UN K 07/12/2019 12:00:00 AM EDT active Anoro Ellipta umeclidinium 62.5 mcg and vilanterol 25 mcg eCW1 ([facility]) Anoro Ellipta umeclidinium 62.5 mcg and vilanterol 25 mcg UN K 07/12/2019 12:00:00 AM EDT active Anoro Ellipta umeclidinium 62.5 mcg and vilanterol 25 mcg eCW1 ([facility]) Anoro Ellipta umeclidinium 62.5 mcg and vilanterol 25 mcg UN K 07/12/2019 12:00:00 AM EDT active Anoro Ellipta umeclidinium 62.5 mcg and vilanterol 25 mcg eCW1 ([facility]) Anoro Ellipta umeclidinium 62.5 mcg and vilanterol 25 mcg UN K 07/12/2019 12:00:00 AM EDT active Anoro Ellipta umeclidinium 62.5 mcg and vilanterol 25 mcg eCW1 ([facility]) Anoro Ellipta umeclidinium 62.5 mcg and vilanterol 25 mcg UN K 07/12/2019 12:00:00 AM EDT active Anoro Ellipta umeclidinium 62.5 mcg and vilanterol 25 mcg eCW1 ([facility]) Anoro Ellipta umeclidinium 62.5 mcg and vilanterol 25 mcg UN K 07/12/2019 12:00:00 AM EDT active Anoro Ellipta umeclidinium 62.5 mcg and vilanterol 25 mcg eCW1 ([facility]) Anoro Ellipta umeclidinium 62.5 mcg and vilanterol 25 mcg UN K 07/12/2019 12:00:00 AM EDT active Anoro Ellipta umeclidinium 62.5 mcg and vilanterol 25 mcg eCW1 ([facility]) Anoro Ellipta umeclidinium 62.5 mcg and vilanterol 25 mcg UN K 07/12/2019 12:00:00 AM EDT active Anoro Ellipta umeclidinium 62.5 mcg and vilanterol 25 mcg eCW1 ([facility]) Anoro Ellipta umeclidinium 62.5 mcg and vilanterol 25 mcg UN K 07/12/2019 12:00:00 AM EDT active 1 inhala tion eCW1 ([facility]) Insurance Providers Payer name Policy type / Coverage type Policy ID Covered libertarian ID Covered libertarian's relationship to bravo Policy Bravo Plan Information MEDICARE [id number] SP [id number] [facility] OPTIONS [id number] SP [id number] ANSI-Medicare Part B [id number] ANSI-Commercial [id number] ANSI-Medicare Part B [id number] ANSI-Commercial [id number] ANSI-Medicare Part B [id number] ANSI-Commercial [id number]-[id number]-[id number] ANSI-Medicare Part B [id number] ANSI-Commercial [id number]-[id number]-[id number] ANSI-Commercial [id number]-[id number] ANSI-Medicare Part B [id number] ANSI-Commercial [id number]-[id number]-j224-3wwmz15zp7ve ANSI-Medicare Part B [id number] ANSI-Medicare Part B [id number] ANSI-Commercial [id number]-[id number]-28qb-[id number] [id number]-[id number]-64yp-[id number] ANSI-Medicare Part B [id number] ANSI-Commercial [id number]-[id number] [id number]-tut3-9gsq-8jgk-[id number] ANSI-Medicare Part B [id number] ANSI-Commercial [id number]-o600-586n-6z53-[id number] fw5h4jwd-n192-004u-2k75-[id number] ANSI-Medicare Part B [id number]-[id number]-m13k-[id number] ANSI-Commercial [id number]-[id number]-[id number] ANSI-Medicare Part B [id number] ANSI-Commercial [id number]-[id number] 5bns06n5-1930-30f5-[id number] ANSI-Commercial [id number]-233o-005s-5181-utu01fvh4s1o 44pq342w-100z-117i-3366-kiz87vig9c9q ANSI-Medicare Part B [id number] ANSI-Medicare Part B [id number] ANSI-Commercial [id number]-[id number] [id number]-[id number] ANSI-Medicare Part B [id number] ANSI-Commercial 264fnn12-y15t-76ry-87tm-[id number] 604xcl78-j40p-78qs-90wy-954j0l2397id BC/BS [facility] [id number] Family Dependent [id number] [facility] Health Care Options [facility] Part B [id number] Self [id number] Medicare (Part B) Medicare Primary [id number] Self [id number] BC/BS [facility] [id number] Family Dependent [id number] [facility] Health Care Options [facility] Part B [id number] [facility] [id number] Medicare (Part B) Medicare Primary [id number] Self [id number] ANSI-Medicare Part B [id number] ANSI-Commercial [id number]-[id number] MEDICARE [id number] A ANSI-Medicare Part B [id number] ANSI-Commercial [id number] 5tz2mn93-[id number] ANSI-Commercial [id number]-kwhd-[id number] ANSI-Medicare Part B [id number] ANSI-Medicare Part B [id number] ANSI-Commercial [id number]-4fh3-225leivh037e [id number]-t1k9-6y5c-0cg2-645pgmut412a ANSI-Commercial [id number]-z8gc-[id number] 0d07f9q0-t2yd-5615-0a4p-[id number] ANSI-Medicare Part B [id number]-[id number] ANSI-Commercial [id number]-[id number] 1s92cp0p-fok6-6l33-04f4-773p8rb3tp5m ANSI-Medicare Part B [id number] ANSI-Commercial [id number]-2386-9xqy-7283-r7jh194d2wdq [id number]-4616-4nll-4490-z7jx173x0qbl ANSI-Medicare Part B [id number] ANSI-Commercial [id number]-[id number] 1is8n0qh-[id number] ANSI-Medicare Part B [id number]-689x-[id number] ANSI-Commercial [id number]-673u-g97h-[id number] [id number]-053g-t16e-[id number] ANSI-Medicare Part B [id number] ANSI-Commercial [id number]-559c-2s82-q4x9-80u09aqx28i5 o4lj94gw-228s-4a04-h4n4-75u18vch87f2 ANSI-Medicare Part B [id number]-[id number] ANSI-Medicare Part B [id number] [id number]-[id number] ANSI-Commercial 51s82slp-197y-7f03-h687-b7bc1602xk53 65o34qno-171p-7v38-x243-f1sd0653ax68 ANSI-Commercial [id number]-sj5d-93y0-p92u-k4jae91331qi [id number]-sa8n-03b4-y37w-l0oyi60752pv ANSI-Medicare Part B [id number] 80fwz4h4-3p87-7a5m-f378-[id number] ANSI-Commercial [id number]-6yu9-g02o-[id number] 03d890y7-978w-8gl6-a80a-30z8k9tw7qe4 ANSI-Medicare Part B [id number]-k4f7-499m66ecv640 ANSI-Commercial [id number]-06f9-8gvo-4k4pu2os6i6l [id number]-54k2-1vej-0r6gb9yf5p9g ANSI-Medicare Part B [id number]-[id number] ANSI-Commercial 5lm10n3z-44ai-0626-9214-m7a531lbz2ts 6ee03h5l-09gp-1148-0757-w4x235ydn0vf ANSI-Medicare Part B [id number]-h1x3-0406-k936-c7911tz6l409 ANSI-Medicare Part B [id number]-[id number] ANSI-Commercial nvd23278-jb93-93h9-pl10-k0cj9ve174wo bmz88930-jy94-44k6-ih93-x3ru1sv771qo ANSI-Commercial [id number]-4o5i-5544-2t50-b96b5f956yif 216r918e-5k0w-5795-6u56-v84e1r109hra ANSI-Medicare Part B [id number]-[id number] ANSI-Medicare Part B [id number]-q6qa-[id number] ANSI-Commercial [id number]-[id number]-[id number] ANSI-Medicare Part B [id number] ANSI-Commercial [id number]-3j18-8a70-[id number] [id number]-1o00-3g62-a2s641oz10y7 ANSI-Medicare Part B [id number]-k7n1-c984l5zz28t8 ANSI-Commercial lod79dv4-669a-2uqh-989w-41o17ds97w2y tkf50bo4-078p-7fqj-658d-76f08vn81g9c ANSI-Medicare Part B [id number]-[id number] ANSI-Commercial [id number]-l0yo-[id number] 39y22bc5-5978-3sd4-q6ud-r23fk2r6342z ANSI-Medicare Part B 01u901k7-uli5-10qw-r814-m4u4njffnh67 47u230g6-nxq9-43wp-u176-f8m2mdjjqj55 ANSI-Commercial h90la9b9-xa4n-6199-qtd2-98ng86ons54p h76vz7d9-it8b-8513-flx4-91rc07bpz39t ANSI-Medicare Part B 66440vmc-3z70-19xu-685h-1h7jy3k01d12 43387uld-7s81-27xx-749q-2y9zk2o59w98 ANSI-Commercial 480016qp-py6y-307s-8e59-t31x7us33n20 994609co-bo8c-203q-2y23-n94m8sw98r36 ANSI-Medicare Part B muh0emk8-53z8-6403-ie4k-b38i04hw0z44 dir0tgk2-04e7-5947-lz7p-v48i93qa2a11 ANSI-Commercial 7uvew6h9-8r12-2352-b570-m60w123kj7p5 1fxez7q5-0v52-4855-g853-n84n146pl2h1 ANSI-Commercial j37z41a1-0795-9w97-844f-698bj5m051gs p40p74b8-1764-2v47-452y-379ym9f845tt ANSI-Medicare Part B [id number]-49fy-3f00-8k21-83p99h805a2y w586674h-98xn-3u86-2j97-13q19a369a9c ANSI-Medicare Part B i32zg053-g700-803o-69mr-32b3ra11w0ec t30wi192-p891-402t-28vt-92o8bi51x8kk ANSI-Commercial g4781e6l-c4n3-785e-ik16-it4gyd9173rt h2257d4g-c2r3-693m-oc40-ri5fsp0108io ANSI-Commercial 28866705-421s-9684-5702-zq2747437r04 27146689-102a-6924-2877-mo5580502x07 ANSI-Medicare Part B [id number]-j7g2-7b2a1kr3xc3r 0s245569-2300-9j97-j0q2-0t0x8kz4lz4m ANSI-Commercial 5q58mzx9-0306-58a5-2fvi-fpy2cy6rhl87 4r96kyv6-5565-11p5-0gja-opv4lg4tyj32 ANSI-Medicare Part B [id number]-sz0i-548c-f315-kls9h1106233 763p2619-mo3g-069u-y808-uwd5g4941638 ANSI-Medicare Part B 058k48r5-8da2-3431-2558-5l34058e099q 557v90l6-9kj0-9756-3797-5u38757s051q ANSI-Commercial w45221f2-216x-9bb9-46oo-8t233t15y703 v70602b3-694k-9ru6-60qe-9e230j42p725 ANSI-Medicare Part B 448xpng4-8w62-30tm-2o07-l717y4336yko 334wwmm7-7w03-29aa-3i75-u149p3932frz ANSI-Commercial 5g557387-nk12-4x93-ei5c-15b0049yr7b0 3l240506-zk07-9c46-el1u-43u9192fu0o9 ANSI-Commercial 77o8te34-9305-48qb-8674-4p1968c95c16 13g0hy09-3350-53ga-5618-5d3049x08o12 ANSI-Medicare Part B vw28y74r-878z-4f09-s801-c59015dzm964 rj04j57t-091a-0d31-n624-q29858cue631 ANSI-Medicare Part B p38w05u0-430x-2839-o324-231cbd8hx759 x43m73i4-933r-2339-o482-998uib7qa368 ANSI-Commercial d08w5660-810y-5659-9186-3f7f003ap111 a97h2651-876j-8123-9858-1j5g254vw934 [facility] Healthcare Options [facility] Part B [id number] Self [id number] [place] Primary [id number] Self [id number] ANSI-Medicare Part B [id number] 6xp0eju6-a089-6971-1333-7r2b66pv82ee ANSI-Commercial 0844s0mh-64hd-3305-6n86-7i6505q349d7 3553z7ga-93np-8139-2n85-2a5133i799s4 ANSI-Commercial 442vu00w-67o9-7a8e-ai72-e41042911203 016zs41a-68l4-0b4g-re26-c61514058394 ANSI-Medicare Part B o4xt2lv1-1m51-6o5x-64r3-8ww6an3z51m3 o6dj9af2-7j21-6t1l-08m3-0tw6rp5s39v7 ANSI-Commercial 599h796m-2s53-945v-6040-20zy677w4x2v 011a385f-5n72-293f-3516-96ab538l5i8l ANSI-Medicare Part B [id number]-[id number] p1848898-14ca-031v-vp9c-86kv747126fa BC/BS [facility] Part B [id number] Family Dependent [id number] [facility] Options [employer] Part B [id number] Self [id number] Medicare (Part B) Medicare Primary [id number] Self [id number] [employer] Medigap Part B [id number] Self [id number] [place] Medicare Primary [id number] Self [id number] A[employer] Medigap Part B [id number] Self [id number] [place] Medicare Primary [id number] Self [id number] [employer] Medigap Part B [id number] Self [id number] [place] Medicare Primary [id number] Self [id number] BC/BS [facility] Part B [id number] Family Dependent [id number] [facility] Options Medigap Part B [id number] Self [id number] Medicare (Part B) Medicare Primary [id number] Self [id number] [employer] HE[employer] CARE OPTIONS [id number] SP [id number] [employer] Medigap Part B [id number] Self [id number] [place] Medicare Primary [id number] Self [id number] BC/BS Of [facility] Part B [id number] Family Dependent [id number] [facility] Options Medigap Part B [id number] Self [id number] Medicare (Part B) Medicare Primary [id number] Self [id number] Medicare (Part B) Medicare Primary Self BC/BS Of [place] Medigap Part B Family Depen dent [facility]ar Health Care Options Medigap Part B Self MEDICARE [id number] SP [id number] A Aar Medigap Part B Self Medicare [facility] Medicare Primary Self Medicare Medicare Primary Self [id number] A Problems, Conditions, and Diagnoses Code Display Name Description Problem Type Effective Dates Data Source(s) 4104967 Psoriasis Psoriasis Problem 10/27/2019 12:00:00 AM ED T [facility] ([facility]) [id number] Non-menopausal hot flash Non-menopausal hot flash P roblem 10/27/2019 12:00:00 AM EDT [facility] ([facility]) 32248328 Essential hypertension Essential hypertension Problem 10/27/2019 12:00:00 AM EDT [facility] ([facility]) [id number] Restless legs Restless legs Problem 10/27/2019 12:00:00 AM EDT [facility] ([facility]) 70202354 Anxiety Anxiety Problem 10/27/2019 12:00:00 AM ED T [facility] ([facility]) [id number] Coronary atherosclerosis Coronary atherosclerosis Prob estefani 10/27/2019 12:00:00 AM EDT [facility] ([facility]) 05166954 Hypercholesterolemia Hypercholesterolemia Problem 10/27/2019 12:00:00 AM EDT [facility] ([facility]) Surgeries/Procedures Procedure Description Date Indications Data Source(s) Omt 7-8 Body Regions 02/02/2020 12:00:00 AM EDT [facility] ([facility]) Omt 7-8 Body Regions 01/27/2020 12:00:00 AM EDT [facility] ([facility]) ECG ROUTINE ECG W/LEAST 12 LDS W/I&R 12/09/2019 12:00: 00 AM EDT [facility] ([facility]) Results ID Date Data Source [id number] 10/18/2019 01:41:00 PM EDT [facility] ([facility]) Name Value Range Interpretation Code Description Data Cassidy rce(s) Supporting Document(s) Hemoglobin 15.3 g/dL 12.0-15.5 [facility] ([facility]) Red Blood Count 4.83 10 4.00-5.40 [facility] ([facility]) White Blood Count 5.5 10 4.0-10.0 [facility] Mean Corpuscular Volume 97.5 fl 80.0-96.0 M EDENT ([facility]) Hematocrit 47.1 % 36.0-47.0 [facility] ([facility]) Mean Corpuscular Hemoglobin 31.7 pg 27.0-33.0 [facility] ([facility]) Red Cell Distribution Width 12.5 % 11.5-14.5 [facility] ([facility]) Mean Corpuscular HGB Conc 32.5 g/dL 32.0-36.5 [facility] ([facility]) Platelet Count, Automated 244 10 150-450 [facility] ([facility]) Nucleated Red Blood Cell % 0.0 % 0-0 MED ENT ([facility]) ID Date Data Source [id number] 10/18/2019 01:41:00 PM EDT [facility] Name Value Range Interpretation Code Description Data Cassidy rce(s) Supporting Document(s) Triglycerides Level 109 mg/dL [facility] ([facility]) Cholesterol Level 161 mg/dL [facility] ([facility]) LDL Cholesterol 91 mg/dL [facility] ([facility]) HDL Cholesterol 48 mg/dL [facility] ([facility]) Non-HDL-C 113 mg/dL [facility] Cholesterol Risk Ratio 3.354 [facility] ([facility]) ID Date Data Source [id number] 10/18/2019 01:41:00 PM EDT [facility]) Name Value Range Interpretation Code Description Data Cassidy rce(s) Supporting Document(s) Glucose, Fasting 86 mg/dL 70-100 [facility]) Glomerular Filtration Rate Laboratory test result [facility] ([facility]) <content>Units are mL/min/1.73 m2</content>
<content></content>
<content>Chronic Kidney Disease Staging per NKF:</content>
<content></content>
<content>Stage I & II GFR >=60 Normal to Mildly Decreased</content>
<content>Stage III GFR 30- 59 Moderately Decreased</content>
<content>Stage IV GFR 15-29 Severely Decreased</content>
<content>Stage V GFR <15 Very Little GFR Left</content>
<content>ESRD GFR <15 on RX SPECIALIST</content>
<content></content> Blood Urea Nitrogen 24 mg/dL 7-18 [facility] ([facility]) Creatinine For GFR 0.81 mg/dL 0.55-1.30 [facility] ([facility]) Sodium Level 141 meq/L 136-145 [facility] ([facility]) Potassium Serum 4.2 meq/L 3.5-5.1 [facility] ([facility]) Chloride Level 109 meq/L 98-107 [facility] ([facility]) Carbon Dioxide Level 27 meq/L 21-32 [facility] ([facility]) Calcium Level 9.0 mg/dL 8.8-10.2 [facility] ([facility]) Ast/Sgot 33 U/L 7-37 [facility] Anion Gap 5 meq/L 8-16 [facility] Bilirubin,Total 0.3 mg/dL 0.2-1.0 [facility] ([facility]) Alkaline Phosphatase 87 U/L 45-117 [facility] ([facility]) Alt/SGPT 39 U/L 12-78 [facility] Albumin 3.4 GM/DL 3.2-5.2 [facility] Total Protein 6.9 GM/DL 6.4-8.2 [facility] ([facility]) Albumin/Globulin Ratio 1.0 1.2-2.2 [facility] ([facility]) Procedure Social History Code Duration Value Status Description Data Source(s ) Smoking 12/09/2019 12:00:00 AM EDT Patient is a former smoker completed Patient is a former smoker [facility] ([facility]) Smoking 10/27/2019 12:00:00 AM EDT Quit completed Quit [facility] ([facility]) Vital Signs ID Date Data Source UNK Name Value Range Interpretation Code Description Data Source(s) [place] body weight 100 [lb_av] 100 [lb_av] MED[facility] T ([facility]) Oxygen saturation in Arterial blood by Pulse oximetry 96 % 96 % [facility] ([facility]) Body temperature 97.7 [degF] 97.7 [degF] [facility] ([facility]) Respiratory rate 16 /min 16 /min [facility] ( [facility]) Heart rate 76 /min 76 /min [facility] ([facility]) Body mass index (BMI) [Ratio] 30.5 kg/m2 30.5 k g/m2 [facility] ([facility]) Body weight 152.00 [lb_av] 152.00 [lb_av] [facility] T ([facility]) Body height 59.2 [in_i] 59.2 [in_i] [facility] ([facility]) 4'11.20" Diastolic blood pressure 80 mm[Hg] 80 mm[Hg] [facility] ([facility]) Systolic blood pressure 128 mm[Hg] 128 mm[Hg] M EDENT ([facility]) Oxygen saturation in Arterial blood by Pulse oximetry 97 % 97 % [facility] ([facility]) Body temperature 97.3 [degF] 97.3 [degF] [facility] ([facility]) Respiratory rate 18 /min 18 /min [facility] ( [facility]) Heart rate 72 /min 72 /min [facility] ([facility]) Body mass index (BMI) [Ratio] 30.8 kg/m2 30.8 k g/m2 [facility] ([facility]) Body weight 153.44 [lb_av] 153.44 [lb_av] MED[facility] T ([facility]) Body height 59.2 [in_i] 59.2 [in_i] [facility] ([facility]) 4'11.20" Diastolic blood pressure 82 mm[Hg] 82 mm[Hg] [facility] ([facility]) Systolic blood pressure 142 mm[Hg] 142 mm[Hg] M EDENT ([facility]) [place] body weight 100 [lb_av] 100 [lb_av] [facility] T ([facility]) Diastolic blood pressure 76 mm[Hg] 76 mm[Hg] [facility] ([facility]) sitting Systolic blood pressure 136 mm[Hg] 136 mm[Hg] M EDENT ([facility]) sitting Diastolic blood pressure 76 mm[Hg] 76 mm[Hg] [facility] ([facility]) sitting, regular cuff Systolic blood pressure 138 mm[Hg] 138 mm[Hg] M EDENT ([facility]) sitting, regular cuff Respiratory rate 16 /min 16 /min [facility] ( [facility]) Heart rate 88 /min 88 /min [facility] ([facility]) Regular Body mass index (BMI) [Ratio] 29.1 kg/m2 29.1 k g/m2 [facility] ([facility]) Body height 60 [in_i] 60 [in_i] [facility] 5'0" Body weight 149.00 [lb_av] 149.00 [lb_av] [facility] T ([facility]) [place] body weight 100 [lb_av] 100 [lb_av] [facility] T ([facility]) Oxygen saturation in Arterial blood by Pulse oximetry 94 % 94 % [facility] ([facility]) Body temperature 97.3 [degF] 97.3 [degF] [facility] ([facility]) Respiratory rate 18 /min 18 /min [facility] ( [facility]) Heart rate 87 /min 87 /min [facility] ([facility]) Body mass index (BMI) [Ratio] 29.9 kg/m2 29.9 k g/m2 [facility] ([facility]) Body weight 149.12 [lb_av] 149.12 [lb_av] [facility] T ([facility]) Body height 59.2 [in_i] 59.2 [in_i] [facility] ([facility]) 4'11.20" Diastolic blood pressure 74 mm[Hg] 74 mm[Hg] [facility] ([facility]) Systolic blood pressure 142 mm[Hg] 142 mm[Hg] M [facility] ([facility]) Patient Treatment Plan of Care Planned Activity Planned Date Details Description Data Source (s) Anoro Ellipta umeclidinium 62.5 mcg and vilanterol 25 mcg 07/12/2019 12:00:00 AM EDT eCW1 ([facility]) Anoro Ellipta umeclidinium 62.5 mcg and vilanterol 25 mcg 07/12/2019 12:00:00 AM EDT eCW1 ([facility]) Anoro Ellipta umeclidinium 62.5 mcg and vilanterol 25 mcg 07/12/2019 12:00:00 AM EDT eCW1 ([facility]) Anoro Ellipta umeclidinium 62.5 mcg and vilanterol 25 mcg 07/12/2019 12:00:00 AM EDT eCW1 ([facility]) Anoro Ellipta umeclidinium 62.5 mcg and vilanterol 25 mcg 07/12/2019 12:00:00 AM EDT eCW1 ([facility]) Anoro Ellipta umeclidinium 62.5 mcg and vilanterol 25 mcg 07/12/2019 12:00:00 AM EDT eCW1 ([facility]) Anoro Ellipta umeclidinium 62.5 mcg and vilanterol 25 mcg 07/12/2019 12:00:00 AM EDT eCW1 ([facility]) Anoro Ellipta umeclidinium 62.5 mcg and vilanterol 25 mcg 07/12/2019 12:00:00 AM EDT eCW1 ([facility]) Anoro Ellipta umeclidinium 62.5 mcg and vilanterol 25 mcg 07/12/2019 12:00:00 AM EDT eCW1 ([facility]) Anoro Ellipta umeclidinium 62.5 mcg and vilanterol 25 mcg 07/12/2019 12:00:00 AM EDT eCW1 ([facility])
--- OUTSIDE RECORDS SUMMARY | 2020-05-30 21:23 | CCD ---
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.10 Active 869931125365171 Problem Chronic obstructive pulmonar y disease with acute lower respiratory infection J44.0 Active 380318166410875 Problem Systemic hypertension I10 Active 58709906 Problem Pure hypercholesterolemia, unspecified E78.00 A ctive 094689395 Problem Coronary artery disease invo lving [place] heart without angina pectoris, unspecified vessel or lesion type I25.10 Active 53 948996 Problem Gastroesophageal reflux disease without esophagitis K21.9 Active 228215001 Problem Anxiety F41.9 Active 43480254 ALLERGIES Allergen (clinical drug ingredient) Drug/Non Drug Allergy do cumented on EMR Reaction Allergy Type Onset Date Status Codeine Phosphate(NDC Code:[address]-58) Nausea/Vomiting Drug Allergy Active Iodine(NDC Code:89258-46127) Hives Drug Allergy Active meperidine Demerol(NDC Code:[address]-65) Nausea/Vomiting Drug Aller gy Active ENCOUNTERS from 1940 to 2020-04-01 Encounter Location Date Provider Diagnosis [facility] [place] [address] Nov, Priscilla Lopez Gastroesophageal reflux disease without esophagitis K21.9 ; Atherosclerotic heart disease of [place] coronary artery without angina pectoris I25.10 ; [...] QUALITATIVE IGG Reviewed date:12/09/2017 00:02:05 Interpretation: Performing Lab:[facility],[address] [place] [address], ,[place] [address] H PYLORI QUALITATIVE IgG NEGATIVE NEGATIVE H PYLORI SERUM QUANT IGM Reviewed date:12/09/2017 00:02:13 Interpretation: Performing Lab:[facility],[address] [facility], ,[place] [address] H PYLORI SERUM QUANT IGM <9.0 0.0-8.9 REASON FOR VISIT yearly follow up up/script refills, PHQ-2 done, AUDIT/DAST done, chart reviewed, REFUSES PREVNAR BUT DID HAVE PNEUMO 23 MEDICAL (GENERAL) HISTORY Type Description Date Medical History Hypercholesterolemia Medical History [place] in 10/06/2004 s/p RCA sten ts x [...] well. 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 Atherosclerotic heart disease of [place] coronary arter y without angina pectoris for [...] Insured Coverage Start Date Coverage End Date [facility] [employer] CARE OPTIONS [facility] CLAIM DIV [id number] [facility] [id number] TAMAR GROSS self MEDICARE Part A and B [address] [facility] [phone] TAMAR GROSS self
--- OUTSIDE RECORDS SUMMARY | 2020-05-30 21:23 | CCD ---
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 Active confirmed 59652 009 Problem Chronic obstructive pulmonary disease, unspecified COPD ty pe J44.9 Active confirmed 36799759 Problem 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.10 Active confirmed 542192018491817 Problem Chronic obstructive pulmonar y disease with acute lower respiratory infection J44.0 Active confirmed 902613020942527 Problem Systemic hypertension I10 Active confirmed 27392240 Problem Pure hypercholesterolemia, unspecified E78.00 A ctive confirmed 269077274 Problem Coronary artery disease invo lving [place] heart without angina pectoris, unspecified vessel or lesion type I25.10 Active confirmed 81910742 Problem Gastroesophageal reflux disease without esophagitis K21.9 Active confirmed 515594050 Problem Anxiety F41.9 Active confirmed 58813117 ALLERGIES Allergen (clinical drug ingredient) Drug/Non Drug Allergy do cumented on EMR Reaction Allergy Type Onset Date Status Codeine Phosphate(NDC Code:[address]-70) Nausea/Vomiting Drug Allergy Active Iodine(NDC Code:79966-58760) Hives Drug Allergy Active meperidine Demerol(NDC Code:[address]-12) Nausea/Vomiting Drug Aller gy Active ENCOUNTERS from 1940 to 2020-05-27 Encounter Location Date Provider [facility] [address] [place] [id number] Nov, Priscilla Lopez Gastroesophageal reflux disease without esophagitis K21.9 ; Atherosclerotic heart disease of [place] coronary artery without angina pectoris I25.10 [...] skin Transdermal once a week f or day(s) Active Atenolol 50 MG 1 tablet [...] QUALITATIVE IGG Reviewed date:12/09/2017 00:02:05 Interpretation: Performing Lab:[facility],[address] [place] [address], ,[place] [address] H PYLORI QUALITATIVE IgG NEGATIVE NEGATIVE H PYLORI SERUM QUANT IGM Reviewed date:12/09/2017 00:02:13 Interpretation: Performing Lab:[facility],[address] [facility] [address] H PYLORI SERUM QUANT IGM <9.0 0.0-8.9 REASON FOR VISIT yearly follow up up/script refills, PHQ-2 done, AUDIT/DAST done, chart reviewed, REFUSES PREVNAR BUT DID HAVE PNEUMO 23 MEDICAL (GENERAL) HISTORY Type Description Date Medical History Hypercholesterolemia Medical History [place] in 10/06/2004 s/p RCA sten ts x [...] well. Nov, Atherosclerotic heart diseas e of [place] coronary artery without angina pectoris (ICD-10 [...] warrented as well. Atherosclerotic heart disease of [place] coronary arter y without angina pectoris [...] Insured Coverage Start Date Coverage End Date [employer] OPTIONS [facility] CLAIM DIV [id number] [facility] [id number] TAMAR GROSS MEDICARE Part A and B [address] [facility] [id number] TAMAR GROSS self
--- OUTSIDE RECORDS SUMMARY | 2020-05-30 21:23 | CCD ---
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 Active 76572963 Problem Chronic obstructive pulmonary disease, unspecified COPD ty pe J44.9 Active 90462916 Problem Atherosclerotic heart diseas e of [place] coronary artery without angina pectoris I25.10 Active 766147425847347 Problem Chronic obstructive pulmonar y disease with acute lower respiratory infection J44.0 Active 746457301423475 Problem Systemic hypertension I10 Active 67571310 Problem Pure hypercholesterolemia, unspecified E78.00 A ctive 211880024 Problem Coronary artery disease invo lving [place] heart without angina pectoris, unspecified vessel or lesion type I25.10 Active 53 890156 Problem Gastroesophageal reflux disease without esophagitis K21.9 Active 690162240 Problem Anxiety F41.9 Active 44652660 ALLERGIES Allergen (clinical drug ingredient) Drug/Non Drug Allergy do cumented on EMR Reaction Allergy Type Onset Date Status Codeine Phosphate(NDC Code:[address]-87) Nausea/Vomiting Drug Allergy Active Iodine(NDC Code:85216-33744) Hives Drug Allergy Active meperidine Demerol(NDC Code:[address]-91) Nausea/Vomiting Drug Aller gy Active ENCOUNTERS from 1940 to 2020-05-06 Encounter Location Date Provider Diagnosis [facility] [place] [address] Nov, Priscilla Lopez Gastroesophageal reflux disease without esophagitis K21.9 ; Atherosclerotic heart disease of [place] coronary artery without angina pectoris I25.10 ; [...] QUALITATIVE IGG Reviewed date:12/09/2017 00:02:05 Interpretation: Performing Lab:[facility],[address] [place] [address], ,[place] [address] H PYLORI QUALITATIVE IgG NEGATIVE NEGATIVE H PYLORI SERUM QUANT IGM Reviewed date:12/09/2017 00:02:13 Interpretation: Performing Lab:[facility],[address] [place] [address] H PYLORI SERUM QUANT IGM <9.0 0.0-8.9 REASON FOR VISIT yearly follow up up/script refills, PHQ-2 done, AUDIT/DAST done, chart reviewed, REFUSES PREVNAR BUT DID HAVE PNEUMO 23 MEDICAL (GENERAL) HISTORY Type Description Date Medical History Hypercholesterolemia Medical History [place] in 10/06/2004 s/p RCA sten ts x [...] well. Nov, Atherosclerotic heart diseas e of [place] coronary artery without angina pectoris (ICD-10 - [...] the patient it is recommeneded by the [facility] for her age group to have a [...] warrented as well. Atherosclerotic heart disease of [place] coronary arter y without angina pectoris for [...] Date MEDICARE Part A and [address] [facility] [id number] [phone] ATMAR GROSS self [facility] HEALTH CARE [facility] CLAIM DIV [address] [facility] [id number] TAMAR GROSS self
--- OUTSIDE RECORDS SUMMARY | 2020-05-30 21:23 | CCD ---
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 Active confirmed 17792 009 Problem Chronic obstructive pulmonary disease, unspecified COPD ty pe J44.9 Active confirmed 08045208 Problem 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 confirmed 091118517988698 Problem Chronic obstructive pulmonar y disease with acute lower respiratory infection J44.0 Active confirmed 025612216692808 Problem Systemic hypertension I10 Active confirmed 50777992 Problem Pure hypercholesterolemia, unspecified E78.00 A ctive confirmed 773434087 Problem Coronary artery disease invo lving [place] heart without angina pectoris, unspecified vessel or lesion type I25.10 Active confirmed 33353547 Problem Gastroesophageal reflux disease without esophagitis K21.9 Active confirmed 992243766 Problem Anxiety F41.9 Active confirmed 78985828 ALLERGIES Allergen (clinical drug ingredient) Drug/Non Drug Allergy do cumented on EMR Reaction Allergy Type Onset Date Status Codeine Phosphate(NDC Code:[address]-21) Nausea/Vomiting Drug Allergy Active Iodine(NDC Code:59048-66790) Hives Drug Allergy Active meperidine Demerol(NDC Code:[address]-29) Nausea/Vomiting Drug Aller gy Active ENCOUNTERS from 1940 to 2020-05-26 Encounter Location Date [facility] [address] [place] [id number] Nov, Priscilla Lopez Gastroesophageal reflux disease without [...] QUALITATIVE IGG Reviewed date:12/09/2017 00:02:05 Interpretation: Performing Lab:[facility],[address] [place] [address], ,[place] [address] H PYLORI QUALITATIVE IgG NEGATIVE NEGATIVE H PYLORI SERUM QUANT IGM Reviewed date:12/09/2017 00:02:13 Interpretation: Performing Lab:[facility],[address] [facility] [place] [address] H PYLORI SERUM QUANT IGM <9.0 0.0-8.9 REASON FOR VISIT yearly follow up up/script refills, PHQ-2 done, AUDIT/DAST done, chart reviewed, REFUSES PREVNAR BUT DID HAVE PNEUMO 23 MEDICAL (GENERAL) HISTORY Type Description Date Medical History Hypercholesterolemia Medical History [place] in 10/06/2004 s/p RCA sten ts x [...] Coverage End Date [employer] OPTIONS [facility] CLAIM DIV [address] [facility] [id number] T[employer]AR GROSS MEDICARE Part A and B [address] [facility] [phone] [employer] self
--- OUTSIDE RECORDS SUMMARY | 2020-05-30 21:23 | CCD ---
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 Active 85803768 Problem Chronic obstructive pulmonary disease, unspecified COPD ty pe J44.9 Active 08138160 Problem 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.10 Active 605206625236653 Problem Chronic obstructive pulmonar y disease with acute lower respiratory infection J44.0 Active 225226930985582 Problem Systemic hypertension I10 Active 84986205 Problem Pure hypercholesterolemia, unspecified E78.00 A ctive 882578724 Problem Coronary artery disease invo lving [place] heart without angina pectoris, unspecified vessel or lesion type I25.10 Active 53 736053 Problem Gastroesophageal reflux disease without esophagitis K21.9 Active 779632408 Problem Anxiety F41.9 Active 68478745 ALLERGIES Allergen (clinical drug ingredient) Drug/Non Drug Allergy do cumented on EMR Reaction Allergy Type Onset Date Status Codeine Phosphate(NDC Code:[address]-60) Nausea/Vomiting Drug Allergy Active Iodine(NDC Code:35303-[address]752) Hives Drug Allergy Active meperidine Demerol(NDC Code:[address]-04) Nausea/Vomiting Drug Aller gy Active ENCOUNTERS from 1940 to 2020-04-28 Encounter Location Date Provider Diagnosis [facility] [place] [address] Nov, Priscilla oLpez Gastroesophageal reflux disease without esophagitis K21.9 ; Atherosclerotic heart disease of [place] coronary artery without angina pectoris I25.10 ; [...] QUALITATIVE IGG Reviewed date:12/09/2017 00:02:05 Interpretation: Performing Lab:[facility],[address] [place] [address], ,[place] [address] H PYLORI QUALITATIVE IgG NEGATIVE NEGATIVE H PYLORI SERUM QUANT IGM Reviewed date:12/09/2017 00:02:13 Interpretation: Performing Lab:[facility],[address] [facility] [place] [address] H PYLORI SERUM QUANT IGM <9.0 0.0-8.9 [...] well. Nov, Atherosclerotic heart diseas e of [place] coronary artery without angina pectoris (ICD-10 - [...] the patient it is recommeneded by the [facility] for her age group to have [...] warrented as well. Atherosclerotic heart disease of [place] coronary arter y without angina pectoris for [...] Insured Coverage Start Date Coverage End Date [facility] [employer] CARE OPTIONS [facility] CLAIM DIV [address] [place] [id number] T[employer]AR GROSS self MEDICARE Part A and B [address] [place] [phone] [employer] self
--- OUTSIDE RECORDS SUMMARY | 2020-05-30 21:54 | CCD ---
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 Name Role Phone Shiloh Simmons Unavailable Unavailable Symenow, Shiloh Latif PA Unavailable Unavailable Symenow, Shiloh Latif PA Unavailable Unavailable Symenow, Shiloh Latif PA Unavailable Unavailable Symenow, Shiloh Latif PA Unavailable Unavailable Symenow, Shiloh Latif PA Unavailable Unavailable Symenow, Shiloh Latif PA Unavailable Unavailable Symenow, Shiloh Latif PA Unavailable Unavailable Symenomary, Shiloh Latif PA Unavailable Unavailable Symenow, Shilho Latif PA Unavailable Unavailable Symenomary, Shiloh Latif [...] Unavailable Neelima, Rafa PA Unavailable Unavailable OBINNA-STAN, GISELE DO Unavailable Unavailable OBINNA-STAN, GISELE DO Unavailable Unavailable OBINNA-STAN, GISELE DO Unavailable Unavailable OBINNA-STAN, GISELE DO Unavailable Unavailable OBINNA-STAN, GISELE DO Unavailable Unavailable OBINNA-STAN, GISELE DO Unavailable Unavailable OBINNA-SATN, GISELE DO Unavailable Unavailable OBINNA-STAN, GISELE DO Unavailable Unavailable OBINNA-STAN, GISELE DO Unavailable Unavailable OBINNA-STAN, GISELE DO Unavailable Unavailable OBINNA-STAN, GISELE DO Unavailable Unavailable OBINNA-STAN, GISELE DO Unavailable Unavailable OBINNA-STAN, GISELE DO Unavailable Unavailable OBINNA-STAN, GISELE DO Unavailable Unavailable OBINNA-STAN, GISELE DO Unavailable Unavailable OBINNA-STAN, GISELE DO Unavailable Unavailable OBINNA-STAN, GISELE DO Unavailable Unavailable OBINNA-STAN, GISELE DO Unavailable Unavailable OBINNA-STAN, GISELE DO Unavailable Unavailable OBINNA-STAN, GISELE DO Unavailable Unavailable OBINNA-STAN, GISELE DO Unavailable Unavailable OBINNA-TSAN, GISELE DO Unavailable Unavailable OBINNA-STAN, GISELE DO Unavailable Unavailable OBINNA-STAN, GISELE DO Unavailable Unavailable OBINNA-STAN, GISELE DO Unavailable Unavailable OBINNA-STAN, GISELE DO Unavailable Unavailable OBINNA-STAN, GISELE DO Unavailable Unavailable OBINNA-STAN, GISELE DO Unavailable Unavailable OBINNA-STAN, GISELE DO Unavailable Unavailable OBINNA-STAN, GISELE DO Unavailable Unavailable OBINNA-STAN, GISELE DO Unavailable Unavailable OBINNA-STAN, GISELE DO Unavailable Unavailable OBINNA-STAN, GISELE DO Unavailable Unavailable OBINNA-STAN, GISELE DO Unavailable Unavailable OBINNA-STAN, GISELE DO Unavailable Unavailable OBINNA-STAN, GISELE DO Unavailable Unavailable OBINNA-STAN, GISELE DO Unavailable Unavailable OBINNA-STAN, GISELE DO Unavailable Unavailable OBINNA-STAN, GISELE DO Unavailable Unavailable OBINNA-STAN, GISELE DO Unavailable Unavailable OBINNA-STAN, GISELE DO Unavailable Unavailable OBINNA-STAN, GISELE DO Unavailable Unavailable OBINNA-STAN, GISELE DO Unavailable Unavailable OBINNA-STAN, GISELE DO Unavailable Unavailable OBINNA-STAN, GISELE DO Unavailable Unavailable OBINNA-STAN, GISELE DO Unavailable Unavailable OBINNA-STAN, GISELE DO Unavailable Unavailable OBINNA-STAN, GISELE DO Unavailable Unavailable OBINNA-STAN, GISELE DO Unavailable Unavailable OBINNA-STAN, GISELE DO Unavailable Unavailable OBINNA-STAN, GISELE DO Unavailable Unavailable OBINNA-STAN, GISELE DO Unavailable Unavailable OBINNA-STAN, GISELE DO Unavailable Unavailable OBINNA-STAN, GISELE DO Unavailable Unavailable OBINNA-STAN, GISELE DO Unavailable Unavailable OBINNA-STAN, GISELE DO Unavailable Unavailable OBINNA-STAN, GISELE DO Unavailable Unavailable OBINNA-STAN, GISELE DO Unavailable Unavailable OBINNA-STAN, GISELE DO Unavailable Unavailable OBINNA-STAN, GISELE DO Unavailable Unavailable OBINNA-STAN, GISELE DO Unavailable Unavailable OBINNA-STAN, GISELE DO Unavailable Unavailable OBINNA-STAN, GISELE DO Unavailable Unavailable OBINNA-STAN, GISELE DO Unavailable Unavailable OBINNA-STAN, GISELE DO Unavailable Unavailable OBINNA-STAN, GISELE DO Unavailable Unavailable OBINNA-STAN, GISELE DO Unavailable Unavailable OBINNA-STAN, GISELE DO Unavailable Unavailable OBINNA-STAN, GISELE DO Unavailable Unavailable OBINNA-STAN, GISELE DO Unavailable Unavailable OBINNA-STAN, GISELE DO Unavailable Unavailable OBINNA-STAN, GISELE DO Unavailable Unavailable OBINNA-STAN, GISELE DO Unavailable Unavailable OBINNA-STAN, GISELE DO Unavailable Unavailable OBINNA-STAN, GISELE DO Unavailable Unavailable OBINNA-STAN, GISELE DO Unavailable Unavailable OBINNA-STAN, GISELE DO Unavailable Unavailable OBINNA-STAN, GISELE DO Unavailable Unavailable OBINNA-STAN, GISELE DO Unavailable Unavailable OBINNA-STAN, GISELE DO Unavailable Unavailable OBINNA-STAN, GISELE DO Unavailable Unavailable OBINNA-STAN, GISELE DO Unavailable Unavailable Re-disclosure Warning The records [...] is protected by Article 27-F of the [facility] Public Health law. If you continue you may have access to information: Regarding HIV / AIDS; Provided by facilities licensed or operated by the [facility] Office of Mental Health; or Provided by the [facility] Office for People With Developmental Disabilities. If such information is present, then the following [facility] mandated warning applies: This information has been [...] law may result in a fine or mcfp sentence or both. A general authorization for the release of medical or other information is NOT sufficient authorization for further disc losure. Family History Family Member Name Family Member Gender Family Member Status Date o f Status Description Data Source(s) Unknown Unknown Problem [facility] ([facility]) Unknown Unknown Problem MED[facility] ([facility] [employer] [facility]) Unknown Unknown Problem [facility] ([facility] Unknown Unknown Problem [facility] ([facility] Encounters Encounter Providers Location Date Indications Data Source(s ) Outpatient Attender: GISELE ARIAS [facility] 02/02/2020 04:20:00 PM EDT MEDENT ([facility]) Outpatient Attender: GISELE ARIAS [facility] 01/27/2020 01:10:00 PM EDT MEDENT ([facility]) Outpatient Attender: Bhavya MACIEL Main Office 12/09/2019 01:30:00 PM EDT MED[facility] ([facility]) Outpatient Attender: Rafa MACIEL [facility] 10/27/2019 02:40:00 PM EDT MEDENT ([facility]) [address] [address] 07/12/2019 12:00:00 AM EDT eCW1 ([facility]) [address] [address] 07/07/2019 12:00:00 AM EDT eCW1 ([facility]) [address] [address] 07/06/2019 12:00:00 AM EDT eCW1 ([facility]) [address] [address] 07/06/2019 12:00:00 AM EDT eCW1 ([facility]) Medications Medication Brand Name Start Date Product Form Dose Route Admi nistrative Instructions Pharmacy Instructions Status Indications Reaction Description Data Source(s) meloxicam 7.5 MG Oral Tablet Meloxicam 02/02/2020 12:00:00 AM EDT ORAL active MEDENT ([facility]) Acetaminophen 300 MG / butalbital 50 MG / Caffeine 40 MG Oral Capsule [Fioricet] Fioricet 01/27/2020 12:00:00 AM EDT ORAL complete d MEDENT ([facility]) Esomeprazole 20 MG Delayed Release Oral Capsule [Nexium] Nex ium 12/08/2019 12:00:00 AM EDT ORAL active M EDENT ([facility]) Clobetasol Propionate E Clobetasol Propionate E 10/27/2019 12:00:00 A M EDT TOPICAL active MEDENT ([facility]) Anoro Ellipta umeclidinium 62.5 mcg and vilanterol 25 mcg UN K 07/12/2019 12:00:00 AM EDT active Anoro Ellipta umeclidinium 62.5 mcg and vilanterol 25 mcg eCW1 ([facility]) Anoro Ellipta umeclidinium 62.5 mcg and vilanterol 25 mcg UN K 07/12/2019 12:00:00 AM EDT active Anoro Ellipta umeclidinium 62.5 mcg and vilanterol 25 mcg eCW1 ([facility]) Anoro Ellipta umeclidinium 62.5 mcg and vilanterol 25 mcg UN K 07/12/2019 12:00:00 AM EDT active Anoro Ellipta umeclidinium 62.5 mcg and vilanterol 25 mcg eCW1 ([facility]) Anoro Ellipta umeclidinium 62.5 mcg and vilanterol 25 mcg UN K 07/12/2019 12:00:00 AM EDT active Anoro Ellipta umeclidinium 62.5 mcg and vilanterol 25 mcg eCW1 ([facility]) Anoro Ellipta umeclidinium 62.5 mcg and vilanterol 25 mcg UN K 07/12/2019 12:00:00 AM EDT active Anoro Ellipta umeclidinium 62.5 mcg and vilanterol 25 mcg eCW1 ([facility]) Anoro Ellipta umeclidinium 62.5 mcg and vilanterol 25 mcg UN K 07/12/2019 12:00:00 AM EDT active Anoro Ellipta umeclidinium 62.5 mcg and vilanterol 25 mcg eCW1 ([facility]) Anoro Ellipta umeclidinium 62.5 mcg and vilanterol 25 mcg UN K 07/12/2019 12:00:00 AM EDT active Anoro Ellipta umeclidinium 62.5 mcg and vilanterol 25 mcg eCW1 ([facility]) Anoro Ellipta umeclidinium 62.5 mcg and vilanterol 25 mcg UN K 07/12/2019 12:00:00 AM EDT active Anoro Ellipta umeclidinium 62.5 mcg and vilanterol 25 mcg eCW1 ([facility]) Anoro Ellipta umeclidinium 62.5 mcg and vilanterol 25 mcg UN K 07/12/2019 12:00:00 AM EDT active Anoro Ellipta umeclidinium 62.5 mcg and vilanterol 25 mcg eCW1 ([facility]) Anoro Ellipta umeclidinium 62.5 mcg and vilanterol 25 mcg UN K 07/12/2019 12:00:00 AM EDT active 1 inhala tion eCW1 ([facility]) Insurance Providers Payer name Policy type / Coverage type Policy ID Covered libertarian ID Covered libertarian's relationship to bravo Policy Bravo Plan Information MEDICARE [id number] SP [id number] [facility] OPTIONS [id number] SP [id number] ANSI-Medicare Part B [id number] ANSI-Commercial [id number]-[id number] ANSI-Medicare Part B [id number] ANSI-Commercial [id number] 329w6off-l63i-410q-x324-[id number] ANSI-Medicare Part B [id number] ANSI-Commercial [id number]-[id number]-qzgf-mwddq7794lh1 ANSI-Medicare Part B [id number]-[id number] ANSI-Commercial [id number]-ti9k-[id number] [id number]-ap3l-[id number] ANSI-Commercial [id number]-695n-55ef-x51s-2x382wcn1414 193t716g-078j-29yc-u90x-3c817jre5285 ANSI-Medicare Part B [id number]-[id number] ANSI-Commercial 04013887-7972-443v-m933-7ulrm65nw9op 03437510-8790-853e-u558-8qxuf38qw4dz ANSI-Medicare Part B [id number]-[id number] qj5759p9-13w4-37p3-l15e-hf3n64p91045 ANSI-Medicare Part B [id number]-6549-5447-g50c028kgsb4 n7dgq176-n53i-5393-8294-m01f222ibwe6 ANSI-Commercial [id number]-c916-022k-39qu-8858403o2e6k ji232830-e668-623y-18kx-7228614s2n9n ANSI-Medicare Part B [id number]-nw4r-[id number] 247c41o3-7179-5993-of7x-73a1c439vtm5 ANSI-Commercial [id number]-lcz5-6dlv-0ebb-92no4h4g6362 0vr15582-dcl8-3jmf-9hms-94jg0z7l0556 ANSI-Medicare Part B [id number]-735o-9472-[id number] 20i81mue-t7mb-362p-9710-b782h61y04m8 ANSI-Commercial oh1o0vte-o768-838x-2h79-b9w3318ek916 ys2n4tmi-s336-248l-5e08-c0l3933yj694 ANSI-Medicare Part B [id number]-c11w-[id number] 828ij29a-2163-1eed-j56i-x2116d7w90ub ANSI-Commercial yp401505-1686-9813-lm16-88204g232f14 fv313660-3808-7063-kg69-61808a099j41 ANSI-Medicare Part B [id number]-[id number] [id number]-jejp-8787g3ye3281 ANSI-Commercial 8oda43x1-4577-17y0-mz94-57t95c98l0q9 6yjf15i0-8956-78t6-ec66-99q21j38b7i2 ANSI-Commercial 82ai924u-859g-666p-8260-gyd51wcz1r6c 84cw797b-531f-669t-6516-gbx54ilz6u4q ANSI-Medicare Part B [id number] 6yq7d8gu-71tc-3263-46q2-6s45edmj51mf ANSI-Medicare Part B [id number] 81vv09cc-v7p9-1o48-730b-91880603pu95 ANSI-Commercial g99cd804-6186-53ro-9001-65q851e408ii o24hl234-4218-17vz-1302-65x458m115hy ANSI-Medicare Part B [id number]-9l98-84h3-8ys2-y5i607813012 ANSI-Commercial 547vog59-b82c-78hw-60fw-957g5t4893ix 999nyc25-d82f-24se-08bf-153g1u5059bx BC/BS [facility] [id number] Family Dependent [id number] [facility] Health Care Options [facility] Part B [id number] Self [id number] Medicare (Part B) Medicare Primary [id number] Self [id number] BC/BS [facility] [id number] Family Dependent [id number] [facility] Health Care Options [facility] Part B [id number] Self [id number] Medicare (Part B) Medicare Primary [id number] Self [id number] ANSI-Medicare Part B [id number] ANSI-Commercial 01e157zb-566i-4qz7-7i3g-478xvh775p57 71d603gj-586v-8ku5-4e9k-477abh605d46 MEDICARE [id number] A ANSI-Medicare Part B [id number]-[id number] ANSI-Commercial 9lp1ga78-g3j1-6010-48o4-2uh08g71a324 4ay2ib19-w3u6-7289-34m1-8mf70u00p960 ANSI-Commercial c928q511-1049-2899-ezgy-w3a207588426 d634s376-5810-4725-xsqi-l7h504533301 ANSI-Medicare Part B [id number]-[id number] 5461t0tn-j669-9a56-l418-3658i3v2e325 ANSI-Medicare Part B [id number]-[id number]-3wr7-l4e7-928p95fn9835 ANSI-Commercial 1d8131sc-i4b4-8c9a-7ah9-895ftmgt479u 8w3323mk-o6w3-8t7e-9hn9-527haqty543c ANSI-Commercial 9j03c0t0-l0sp-5089-5x6d-12j02640b44h 8q91v1e8-i1tz-0304-8y4l-42e25834g67g ANSI-Medicare Part B [id number]-[id number] xwy1m263-w100-016c-1db8-233u3079c07q ANSI-Commercial 3k41ml7q-wku6-5b70-37r0-755c9lm1fq8n 6l15lo8u-rcz1-8x73-44z0-483j5rj6pr1p ANSI-Medicare Part B [id number]-0369-257t-[id number] 31bj7a0a-4b1h-1950-130i-5f231o559325 ANSI-Commercial 1c0035uk-0837-4iwl-2239-o7gp818h7wnf 6q1150zq-2743-0pbb-9518-u0zq192w9iyl ANSI-Medicare Part B [id number]-873j-11qy-9386-04zuo0i5h9hc 9d93iywo-698p-12db-6772-99oik3g7t4jf ANSI-Commercial 6ml6y9aw-s7y2-27t0-57y0-87v5940x5441 1ql5j0yi-o5o0-29s7-52x2-42t4401m2931 ANSI-Medicare Part B [id number]-632m-51va-[id number] 0z81jb51-2dfd-736h-66gz-q2732ju3243z ANSI-Commercial 7qx9e977-430n-721p-b30d-8n141uvi8752 6fg8g688-134q-751q-h99h-9x730vbh5830 ANSI-Medicare Part B [id number]-g5l4-18k10qa75d66 7r588dag-73l8-2168-l9f2-48c69nr84c54 ANSI-Commercial e7lm31fp-322b-9w87-k4c6-59a41qna27b5 g4rg66rs-714j-3b44-g3p4-26b47buu92w0 ANSI-Medicare Part B [id number]-x230-09y53698j1vx 7ia26a04-opb1-886m-l090-87h91561m2xb ANSI-Medicare Part B 74pqu61g-1974-4fi3-5gp1-k4n4x79a06b0 17rsy39k-7595-0hx3-3ae4-n6i7r87s66z0 ANSI-Commercial 53k43mdu-178c-2v79-n446-b2og0415ta39 49b33ulg-027g-1m74-p404-c5ps4701mk73 ANSI-Commercial 426089ha-te5p-88o5-h07s-x8leb49372us 214287uz-dn4b-83w7-z05g-z3jiq48710ey ANSI-Medicare Part B 49xaz5n4-7t61-6f9o-y775-yy88ve531l3n 43zfz7w0-5d46-3u6q-x717-lz49xm459q7y ANSI-Commercial 32l559r8-239d-6bq3-r42p-62b1g9mc9ur2 07y861d0-634m-7we4-y99y-66e4e0vb4gz7 ANSI-Medicare Part B [id number]-g6k1-988z66pmm983 dt32y586-ue11-0qk5-l5l6-847o36ywv823 ANSI-Commercial 3d5830b9-8t4u-20p9-7vnt-0u8ju2zf8k0c 0e9256n8-6j6y-65z4-9hya-8y4ay8si1s4u ANSI-Medicare Part B [id number]-hi15-7h5oo5kz292e y300750y-0jb1-0568-eo99-7s8pp0qi158a ANSI-Commercial 9qm85p9y-09bh-2326-9811-k0p869eni1xs 8nl65n1j-86cd-6660-7785-y7p163fvz7pw ANSI-Medicare Part B [id number]-m536-x6312ku1l688 a15v7472-i6r6-2254-o858-r7840ic5r524 ANSI-Medicare Part B 65546zz6-3gjn-7vr7-8a19-2xjfq49389w3 84428iv9-5cnk-7zh6-4o94-9rxrt14247h1 ANSI-Commercial ylk46474-mw76-54r1-qn24-x5yx9cl455pg amo03298-fc73-54u3-ou32-p6wu7hd341ut ANSI-Commercial 559f762g-8a9b-2635-4n56-x84f4p004hhm 749f536b-7j6u-0659-1b91-i30l8x897lwc ANSI-Medicare Part B [id number]-ob68-9231j0z8424t v2d39892-61t4-588l-so32-2755i5i0477g ANSI-Medicare Part B [id number]-wip1-7077-y5gn-8tc31x6yk556 77k8121o-rry4-6823-b9sw-7ho47h1ef941 ANSI-Commercial j2754sf9-6y10-5c04-d129-5l4748370ct8 p3834xr8-7i96-6d35-r666-9i1871776pm1 ANSI-Medicare Part B [id number]-g5w6-108o6z4j6714 33c26439-0509-4080-t7p9-240a4a4q3322 ANSI-Commercial 9ue03884-8itk-6z47-0s53-c0u495bz95d6 2sc85631-0dqp-4c11-5m52-l6c690hr34k8 ANSI-Medicare Part B f658009k-g8e6-40e8-z0f2-s169o5bn48g7 b137207t-a3z2-93b6-w7k3-d180j1ap10s7 ANSI-Commercial bgy48jx9-990a-3cwk-348v-61q27jg61b0v hth98bm5-616w-3zlb-099c-30h67bk92y5a ANSI-Medicare Part B [id number]-c87426404rhf 7b3p2973-66i3-9ve7-19fd-c59506900piv ANSI-Commercial 16c24ye5-4643-7ow5-o5fp-d59rj1a7481k 12b70cp4-7651-4pl4-p8bs-i27qk2n6534i ANSI-Medicare Part B 44t199g5-cus5-06ln-w518-e2u2xqxypj00 72y116u4-aul0-13hb-k997-u1b0tmhndd56 ANSI-Commercial f39li6o3-oy8a-6067-mog9-84yn90iyu21e r19ns2m1-je3u-1145-jtj3-39kb73qgm81c ANSI-Medicare Part B 35870cmf-7g15-04kn-474e-7u0sg9x71j94 49310jwr-4f65-18ls-347a-4h4qd9r99s84 ANSI-Commercial 147752mg-ls2a-246h-1q68-b23b4ms47w14 081971qr-vw7i-538l-2e69-i45w9xz02i08 ANSI-Medicare Part B tmq7rkk2-43t8-3165-vj7v-s08f92pf5r90 lve2avj3-57g3-1371-ij9t-a00d42ty0r47 ANSI-Commercial 5dmem8t3-3j18-7188-e593-m92r934nj3k1 0fcfh8i7-9a44-4137-d645-g24f298ge1y3 ANSI-Commercial e76x46v2-5761-1z63-333b-159cj1x025xp e18v21w0-7060-2y88-463s-117qa6s228ds ANSI-Medicare Part B p049294c-79ob-3a78-5u87-70p00j728v6v u065398c-72so-0i42-3q61-84t95q780t5u ANSI-Medicare Part B v92yg294-t691-775g-13pa-33t8qh70y8hf y25ha178-m364-978l-79of-75l1ob21c0iu ANSI-Commercial i2386c4p-g9u4-999n-qz66-sz6drr2053lm v3294y8d-l9r1-228o-tz38-wn6udh0973gg ANSI-Commercial 68678414-612r-2441-7419-ic6053958h60 11327462-621f-8107-4865-zu7849371t47 ANSI-Medicare Part B [id number]-o9t0-0j2v3yy1ax0p 0j500894-6256-5p01-n3l0-2x3v1td9yz6n ANSI-Commercial 3c92ovb8-5635-08k8-6lco-rfu2wn2tde96 4d43fhz0-1395-53t7-9hbb-qoy3wq1brn53 ANSI-Medicare Part B [id number]-kd5n-794o-w811-plj4c5995507 478s8511-og5z-326z-u979-oil5c9902582 ANSI-Medicare Part B [id number]648q314w 471q18l1-1lu7-1128-9424-1n77982x666c ANSI-Commercial s12561z8-275a-8he4-37dt-5v634b23q100 c41738o1-084x-8fx0-31ak-7w350q92c552 ANSI-Medicare Part B 294eeas7-9h28-38yh-2f90-t967f1489bdu 808hlvu7-7w83-59vt-5e79-x053k8834cek ANSI-Commercial 5q440011-mh42-1x65-xx7r-70r1635hq5x4 4k236459-bn25-2p79-mi5p-89a4709vn9p4 ANSI-Commercial 47o6dv40-7648-42uw-2654-3c7105q53n31 80r7ue09-8413-31yq-[id number] ANSI-Medicare Part B [id number] ANSI-Medicare Part B [id number] ANSI-Commercial [id number] [facility] Healthcare Options [facility] Part B [id number] Self [id number] [place] [id number] Self [id number] ANSI-Medicare Part B [id number] ANSI-Commercial [id number] ANSI-Commercial [id number] ANSI-Medicare Part B [id number] ANSI-Commercial [id number] ANSI-Medicare Part B [id number] BC/BS [facility] Part B [id number] Family Dependent [id number] [facility] Medigap Part B [id number] Self [id number] Medicare (Part B) Medicare Primary [id number] Self [id number] [facility] Part B [id number] Self [id number] [place] Medicare Primary [id number] Self [id number] [facility] Part B [id number] Self [id number] [place] Primary [id number] Self [id number] [facility] Part B [id number] Self [id number] [place]/N[place] Medicare Primary [id number] Self [id number] BC/BS [facility] Part B [id number] Family Dependent [id number] [facility] Medigap Part B [id number] Self [id number] Medicare (Part B) Medicare Primary [id number] Self [id number] [employer] OPTIONS [id number] SP [id number] [facility] [employer] Part B [id number] Self [id number] [place]/NGS Medicare Primary [id number] Self [id number] BC/BS [facility] Part B [id number] Family Dependent [id number] [facility] Medigap Part B [id number] Self [id number] Medicare (Part B) Medicare Primary [id number] Self [id number] Medicare (Part B) Medicare Primary Self BC/BS Of [place] Medigap Part B Family Depen dent [facility] Medigap Part B Self MEDICARE [id number] SP [id number] [facility] Medigap Part B Self Medicare [facility] Medicare Primary Self Medicare Medicare Primary Self [id number] A Problems, Conditions, and Diagnoses Code Display Name Description Problem Type Effective Dates Data Source(s) 7363205 Psoriasis Psoriasis Problem 10/27/2019 12:00:00 AM ED T [facility] ([facility]) [id number] Non-menopausal hot flash Non-menopausal hot flash P roblem 10/27/2019 12:00:00 AM EDT [facility] ([facility]) [id number] Essential hypertension Essential hypertension Problem 10/27/2019 12:00:00 AM EDT [facility] ([facility]) [id number] Restless legs Restless legs Problem 10/27/2019 12:00:00 AM EDT [facility] ([facility]) [id number] Anxiety Anxiety Problem 10/27/2019 12:00:00 AM ED T [facility] ([facility]) [id number] Coronary atherosclerosis Coronary atherosclerosis Prob estefani 10/27/2019 12:00:00 AM EDT [facility] ([facility]) [id number] Hypercholesterolemia Hypercholesterolemia Problem 10/27/2019 12:00:00 AM EDT [facility] ([facility]) Surgeries/Procedures Procedure Description Date Indications Data Source(s) Omt 7-8 Body Regions 02/02/2020 12:00:00 AM EDT [facility] ([facility]) Omt 7-8 Body Regions 01/27/2020 12:00:00 AM EDT [facility] ([facility]) ECG ROUTINE ECG W/LEAST 12 LDS W/I&R 12/09/2019 12:00: 00 AM EDT [facility] ([facility]) Results ID Date Data Source [id number] 10/18/2019 01:41:00 PM EDT [facility] ([facility]) Name Value Range Interpretation Code Description Data Cassidy rce(s) Supporting Document(s) Hemoglobin 15.3 g/dL 12.0-15.5 [facility] ([facility]) Red Blood Count 4.83 10 4.00-5.40 [facility]) White Blood Count 5.5 10 4.0-10.0 [facility]) Mean Corpuscular Volume 97.5 fl 80.0-96.0 M [facility] ([facility]) Hematocrit 47.1 % 36.0-47.0 [facility] ([facility]) Mean Corpuscular Hemoglobin 31.7 pg 27.0-33.0 [facility] ([facility]) Red Cell Distribution Width 12.5 % 11.5-14.5 [facility] ([facility]) Mean Corpuscular HGB Conc 32.5 g/dL 32.0-36.5 [facility] ([facility]) Platelet Count, Automated 244 10 150-450 [facility] ([facility]) Nucleated Red Blood Cell % 0.0 % 0-0 [facility] ([facility]) ID Date Data Source [id number] 10/18/2019 01:41:00 PM EDT [facility] Name Value Range Interpretation Code Description Data Cassidy rce(s) Supporting Document(s) Triglycerides Level 109 mg/dL [facility] ([facility]) Cholesterol Level 161 mg/dL [facility] ([facility]) LDL Cholesterol 91 mg/dL [facility] ([facility]) HDL Cholesterol 48 mg/dL [facility] ([facility]) Non-HDL-C 113 mg/dL [facility] Cholesterol Risk Ratio 3.354 [facility] ([facility]) ID Date Data Source [id number] 10/18/2019 01:41:00 PM EDT [facility] Name Value Range Interpretation Code Description Data Cassidy rce(s) Supporting Document(s) Glucose, Fasting 86 mg/dL 70-100 [facility] ([facility]) Glomerular Filtration Rate Laboratory test result [facility]) <content>Units are mL/min/1.73 m2</content>
<content></content>
<content>Chronic Kidney Disease Staging per NKF:</content>
<content></content>
<content>Stage I & II GFR >=60 Normal to Mildly Decreased</content>
<content>Stage III GFR 30- 59 Moderately Decreased</content>
<content>Stage IV GFR 15-29 Severely Decreased</content>
<content>Stage V GFR <15 Very Little GFR Left</content>
<content>ESRD GFR <15 on DISCHARGE COORDINATOR</content>
<content></content> Blood Urea Nitrogen 24 mg/dL 7-18 [facility] ([facility]) Creatinine For GFR 0.81 mg/dL 0.55-1.30 [facility] ([facility]) Sodium Level 141 meq/L 136-145 [facility] ([facility]) Potassium Serum 4.2 meq/L 3.5-5.1 [facility] ([facility]) Chloride Level 109 meq/L 98-107 [facility] ([facility]) Carbon Dioxide Level 27 meq/L 21-32 [facility] ([facility]) Calcium Level 9.0 mg/dL 8.8-10.2 [facility] ([facility]) Ast/Sgot 33 U/L 7-37 [facility] Anion Gap 5 meq/L 8-16 [facility] ([facility] Bilirubin,Total 0.3 mg/dL 0.2-1.0 [facility] ([facility]) Alkaline Phosphatase 87 U/L 45-117 [facility] ([facility]) Alt/SGPT 39 U/L 12-78 [facility] ([facility] Albumin 3.4 GM/DL 3.2-5.2 [facility] ([facility] Total Protein 6.9 GM/DL 6.4-8.2 [facility] ([facility]) Albumin/Globulin Ratio 1.0 1.2-2.2 [facility] ([facility]) Procedure Social History Code Duration Value Status Description Data Source(s ) Smoking 12/09/2019 12:00:00 AM EDT Patient is a former smoker completed Patient is a former smoker [facility] ([facility]) Smoking 10/27/2019 12:00:00 AM EDT Quit completed Quit [facility] ([facility]) Vital Signs ID Date Data Source UNK Name Value Range Interpretation Code Description Data Source(s) [place] body weight 100 [lb_av] 100 [lb_av] [facility] T ([facility]) Oxygen saturation in Arterial blood by Pulse oximetry 96 % 96 % [facility] Body temperature 97.7 [degF] 97.7 [degF] [facility] ([facility]) Respiratory rate 16 /min 16 /min [facility] ( [facility]) Heart rate 76 /min 76 /min [facility] Body mass index (BMI) [Ratio] 30.5 kg/m2 30.5 k g/m2 [facility]) Body weight 152.00 [lb_av] 152.00 [lb_av] [facility] ([facility]) Body height 59.2 [in_i] 59.2 [in_i] [facility]) 4'11.20" Diastolic blood pressure 80 mm[Hg] 80 mm[Hg] [facility] ([facility]) Systolic blood pressure 128 mm[Hg] 128 mm[Hg] M EDENT ([facility]) Oxygen saturation in Arterial blood by Pulse oximetry 97 % 97 % [facility]) Body temperature 97.3 [degF] 97.3 [degF] [facility] ([facility]) Respiratory rate 18 /min 18 /min [facility] ( [facility]) Heart rate 72 /min 72 /min [facility] Body mass index (BMI) [Ratio] 30.8 kg/m2 30.8 k g/m2 [facility] ([facility]) Body weight 153.44 [lb_av] 153.44 [lb_av] [facility] ([facility]) Body height 59.2 [in_i] 59.2 [in_i] [facility] ([facility]) 4'11.20" Diastolic blood pressure 82 mm[Hg] 82 mm[Hg] [facility] ([facility]) Systolic blood pressure 142 mm[Hg] 142 mm[Hg] M EDENT ([facility]) [place] body weight 100 [lb_av] 100 [lb_av] [facility] ([facility]) Diastolic blood pressure 76 mm[Hg] 76 mm[Hg] [facility] ([facility]) sitting Systolic blood pressure 136 mm[Hg] 136 mm[Hg] M [facility] ([facility]) sitting Diastolic blood pressure 76 mm[Hg] 76 mm[Hg] [facility] ([facility]) sitting, regular cuff Systolic blood pressure 138 mm[Hg] 138 mm[Hg] M [facility] ([facility]) sitting, regular cuff Respiratory rate 16 /min 16 /min [facility] ( [facility]) Heart rate 88 /min 88 /min [facility] ([facility]) Regular Body mass index (BMI) [Ratio] 29.1 kg/m2 29.1 k g/m2 [facility] ([facility]) Body height 60 [in_i] 60 [in_i] [facility] 5'0" Body weight 149.00 [lb_av] 149.00 [lb_av] [facility] T ([facility]) [place] body weight 100 [lb_av] 100 [lb_av] [facility] ([facility]) Oxygen saturation in Arterial blood by Pulse oximetry 94 % 94 % [facility] ([facility]) Body temperature 97.3 [degF] 97.3 [degF] [facility] ([facility]) Respiratory rate 18 /min 18 /min [facility] ( [facility]) Heart rate 87 /min 87 /min [facility] ([facility]) Body mass index (BMI) [Ratio] 29.9 kg/m2 29.9 k g/m2 [facility] ([facility]) Body weight 149.12 [lb_av] 149.12 [lb_av] [facility] ([facility]) Body height 59.2 [in_i] 59.2 [in_i] [facility] ([facility]) 4'11.20" Diastolic blood pressure 74 mm[Hg] 74 mm[Hg] [facility] ([facility]) Systolic blood pressure 142 mm[Hg] 142 mm[Hg] M [facility] ([facility]) Patient Treatment Plan of Care Planned Activity Planned Date Details Description Data Source (s) Anoro Ellipta umeclidinium 62.5 mcg and vilanterol 25 mcg 07/12/2019 12:00:00 AM EDT eCW1 ([facility]) Anoro Ellipta umeclidinium 62.5 mcg and vilanterol 25 mcg 07/12/2019 12:00:00 AM EDT eCW1 ([facility]) Anoro Ellipta umeclidinium 62.5 mcg and vilanterol 25 mcg 07/12/2019 12:00:00 AM EDT eCW1 ([facility]) Anoro Ellipta umeclidinium 62.5 mcg and vilanterol 25 mcg 07/12/2019 12:00:00 AM EDT eCW1 ([facility]) Anoro Ellipta umeclidinium 62.5 mcg and vilanterol 25 mcg 07/12/2019 12:00:00 AM EDT eCW1 ([facility]) Anoro Ellipta umeclidinium 62.5 mcg and vilanterol 25 mcg 07/12/2019 12:00:00 AM EDT eCW1 ([facility]) Anoro Ellipta umeclidinium 62.5 mcg and vilanterol 25 mcg 07/12/2019 12:00:00 AM EDT eCW1 ([facility]) Anoro Ellipta umeclidinium 62.5 mcg and vilanterol 25 mcg 07/12/2019 12:00:00 AM EDT eCW1 ([facility]) Anoro Ellipta umeclidinium 62.5 mcg and vilanterol 25 mcg 07/12/2019 12:00:00 AM EDT eCW1 ([facility]) Anoro Ellipta umeclidinium 62.5 mcg and vilanterol 25 mcg 07/12/2019 12:00:00 AM EDT eCW1 ([facility])
[2020-05-30 23:15] LABS: ALBUMIN 3.6 GM/DL (3.2-5.2); BILIRUBIN,DIRECT 0.1 MG/DL (0.0-0.2); BILIRUBIN,TOTAL 0.2 MG/DL (0.2-1.0); CALCIUM LEVEL 9.1 MG/DL (8.8-10.2); CK-MB VALUE MASS 3.5 NG/ML (<3.6); CREATININE FOR GFR 0.98 MG/DL (0.55-1.30); MB/CK RELATIVE INDEX 1.89 (< OR =4); POTASSIUM SERUM 4.2 MEQ/L (3.5-5.1); TROPONIN I 0.02 NG/ML (< 0.10)
[2020-05-30 23:46] VITALS: BP 181/81
[2020-05-31] MEDS ORDERED: AZITHROMYCIN 250MG TABLET PO ONE
[2020-05-31] MEDS ORDERED: ALBUTEROL 90 MCG/ACT 8GM HFA INHALER INH ONE
[2020-05-31] MEDS ORDERED: AZIT-12 PO (00:07)
[2020-05-31] MEDS ORDERED: PRED20TA PO (00:07)
[2020-05-31] MEDS ORDERED: COMBAER6 INH (00:07)
--- NOTE | 2020-05-31 07:14 | ECGEPIP ---
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
--- NOTE | 2020-06-01 22:27 | ED PDOC ---
Post-Departure Follow-Up dr us faxed formal report of cxr for fu Arash Vásquez MD Jun 01, 2020 22:27
== END 2020-05-31 00:15 | disposition home or self-care (01) ==
LOC: M ED 20:23
DX: J44.0 Chronic obstructive pulmonary disease with (acute) lower respiratory infection (principal); I10 Essential (primary) hypertension; I25.10 Atherosclerotic heart disease of native coronary artery without angina pectoris; Z95.5 Presence of coronary angioplasty implant and graft; Z79.899 Other long term (current) drug therapy; Z79.82 Long term (current) use of aspirin; Z88.5 Allergy status to narcotic agent; Z88.8 Allergy status to other drugs, medicaments and biological substances

== ENCOUNTER → 2020-12-08 | Outpatient (CLI) | payer MEDICARE ==
[~2020-12-08] MED LIST changes: +AZIT-12 PO; +COMBAER6 INH; +PRED20TA PO
[2020-12-08 12:39] LABS: HEMATOCRIT 46.4 % (36.0-47.0); HEMOGLOBIN 15.4 g/dl (12.0-15.5); MEAN CORPUSCULAR HEMOGLOBIN 31.8 pg (27.0-33.0); MEAN CORPUSCULAR HGB CONC 33.2 g/dl (32.0-36.5); MEAN CORPUSCULAR VOLUME 95.9 fl (80.0-96.0); PLATELET COUNT, AUTOMATED 247 10^3/uL (150-450); RED BLOOD COUNT 4.84 10^6/uL (4.00-5.40); WHITE BLOOD COUNT 5.5 10^3/uL (4.0-10.0)
[2020-12-08 13:13] LABS: ALBUMIN 3.3 GM/DL (3.2-5.2); ALT/SGPT 38 U/L (12-78); BILIRUBIN,TOTAL 0.5 MG/DL (0.2-1.0); BLOOD UREA NITROGEN 29 MG/DL (7-18); CALCIUM LEVEL 8.6 MG/DL (8.8-10.2); CARBON DIOXIDE LEVEL 27 MEQ/L (21-32); CHLORIDE LEVEL 108 MEQ/L (98-107); CHOLESTEROL LEVEL 146 MG/DL (<200); CHOLESTEROL RISK RATIO 3.106 (<5); CREATININE FOR GFR 0.89 MG/DL (0.55-1.30); GLOMERULAR FILTRATION RATE > 60.0 (>32); GLUCOSE, FASTING 92 MG/DL (70-100); HDL CHOLESTEROL 47 MG/DL (>40); LDL CHOLESTEROL 74 MG/DL (<100); NON-HDL-C 99 MG/DL; POTASSIUM SERUM 4.4 MEQ/L (3.5-5.1); SODIUM LEVEL 139 MEQ/L (136-145); TOTAL PROTEIN 6.6 GM/DL (6.4-8.2); TRIGLYCERIDES LEVEL 124 MG/DL (<150)
== END ==
LOC: M WUC 09:41
PROVIDERS: ATTEND Physician Assistant
DX: I25.10 Atherosclerotic heart disease of native coronary artery without angina pectoris (principal); I10 Essential (primary) hypertension; E78.2 Mixed hyperlipidemia

== ENCOUNTER 2021-02-26 17:33 | Emergency (ER) | payer MEDICARE ==
[~2021-02-26] VITALS: Ht 152.4 cm; Wt 63.6 kg
--- OUTSIDE RECORDS SUMMARY | 2021-02-26 17:40 | CCD | Continuity of Care Document ---
Author Author Brittany TURCIOS PA Organization Unknown Address [address] [facility] [address] [place] [address] Phone [phone] Care Team Providers Care Milling Operator Name Role Phone Elvi Ordonez D.O. AUTM Amando Solis D.P.M. AUTM [phone] Problems Active Problems Provider Date Hypercholesterolemia JANELL Bauer Onset: 10/27/2019 Coronary atherosclerosis JANELL Bauer Onset: 020 Anxiety JANELL Bauer Onset: 10/27/2019 Restless legs JANELL Bauer Onset: 10/27/2019 Essential hypertension JANELL Bauer Onset: 0 Non-menopausal hot flash JANELL Bauer Onset: 020 Psoriasis JANELL Bauer Onset: 10/27/2019 Acute exacerbation of chronic obstructive airways dise ase Elvi Ordonez D.O. Onset: 07/14/2020 Gastroesophageal reflux disease Elvi Ordonez D.O. O nset: 07/14/2020 Hyperlipidemia Elvi Ordonez D.O. Onset: 2020 Social History Type Date Description Comments Sex Unknown Tobacco Use Start: Unknown End: Unknown Quit 12/21 Smoking Status Reviewed: 12/14/20 Quit 01/14/1992 ETOH Use Currently consumes alcohol 1 bee r with dinner Tobacco Use Start: Unknown End: Unknown Patient is a former smoker Recreational Drug Use Denies Drug Use Sun Exposure Does not use sunscreen Seat Belt/Car Seat Always uses seat belt Allergies, Adverse Reactions, Alerts Active Allergies Criticality Reaction | Severity Comments Date Iodine Unable to assess criticality Hives 09/28/2019 Codeine Unable to assess criticality Nausea 09/28/2019 Demerol Unable to assess criticality Nausea 09/28/2019 Medications Active Medications SIG Qnty Indications Ordering Provide r Date Butalbital/Acetaminophen/Caffeine 50-325-40mg Tablets by mouth every 4 hours as needed headache 30tabs Z00.00 Elvi Ordonez D.O. 12/14/2020 Tacrolimus 0.03% Ointment apply to rash behind, around and in ears twice daily as needed 100gm L40.8 Salazar Hernandez.OParker 07/14/2020 Mucinex 600mg Tablets ER 12HR 1 tab every 12 hours as needed 60tabs J44.0 Jessica MatamorosOParker Trelegy Ellipta 100- 62.5-25mcg/Inh Aerosol one inhalation daily 30units Elvi Ordonez D.O. 07/14/2020 Meloxicam 7.5mg Tablets 1 by mouth twice daily with food as needed 60tabs M25.562 Salazar Matamoros.OParker 02/02/2020 Clobetasol Propionate E 0.05% Crea m 1 apply to ear canals, elbows, knees, and ears twice a day psoriasis 65grams L40.0 Elvi Ordonez D.OParker 10/27/2019 Combivent Respimat 20-100mcg/Act A erosol inhale 1 puff by mouth every 4 hours Unknown Magnesium 250mg Tablets 1 by mouth a day Unknown Hydrocortisone-Acetic Acid 1-2% So lution apply 3-5 drops to left ear 4-6 times daily Unkn own Nexium 20mg Capsules DR 1 by mouth every day as needed Unknown Vitamin D3 25mcg (1000 Ut) Capsule s 1 by mouth every day Unknown Multivitamin Adult Tablets 1 by mouth every day Unknown Aspirin [address] 1 by mouth every day Unknown Nitroglycerin 0.4mg Tablets Sub 1 under the tongue every 5 minutes for chest pain up to 3 doses as needed for chest pain Unknown Estradiol 0.05mg/24HR Patches Week ly use as directed by your physician 12units Elvi Harvey er, D.O. Atorvastatin Calcium 40mg Tablets tk 1 t by mouth every day at bedtime 90tabs Elvi Harvey er, D.O. Venlafaxine HCL ER 37.5mg Caps ER 24HR take 1 capsule by mouth once a day with food 90caps Elvi Ordonez, D.O. Enalapril Maleate 10mg Tablets take 1/2 tablet by mouth daily as directed 45tabs Elvi Salgado D.O. Atenolol 50mg Tablets tk 1 t by mouth every day 90tabs Elvi Ordonez D.O. Immunizations Description No Information Available Vital Signs Date Vital Result Comment 12/14/2020 2:40pm BP Systolic 132 mmHg BP Diastolic 74 mmHg Height 59.2 inches 4'11.20" Weight 152.12 lb BMI (Body Mass Index) 30.5 kg/m2 Heart Rate 66 /min Respiratory Rate 18 /min Body Temperature 98.1 F O2 % BldC Oximetry 93 % [place] Body Weight 100 lb 07/14/2020 1:59pm BP Systolic 118 mmHg BP Diastolic 72 mmHg Height 59.2 inches 4'11.20" Weight 150.12 lb BMI (Body Mass Index) 30.1 kg/m2 Heart Rate 74 /min Respiratory Rate 14 /min Body Temperature 97.6 F O2 % BldC Oximetry 98 % [place] Body Weight 100 lb Results Test Acquired Date Facility Test Result H/L Range Note Complete Blood Count 12/08/2020 [facility] Outpatient Test ing (Registration) [address] [place] [address] [phone] White Blood Count 5.5 10 Normal 4.0-10.0 Red Blood Count 4.84 10 Normal 4.00-5.40 Hemoglobin 15.4 g/dL Normal 12.0-15.5 Hematocrit 46.4 % Normal 36.0-47.0 Mean Corpuscular Volume 95.9 fl Normal 80.0-96.0 Mean Corpuscular Hemoglobin 31.8 pg Normal 27.0-33.0 Mean Corpuscular HGB Conc 33.2 g/dL Normal 32.0-36.5 Red Cell Distribution Width 12.5 % Normal 11.5-14.5 Platelet Count, Automated 247 10 Normal 150-450 Nucleated Red Blood Cell % 0.0 % Normal 0-0 Comprehensive Metabolic Profil 12/08/2020 [facility] Outpa tient Testing (Registration) [address] [place] [address] [phone] Glucose, Fasting 92 mg/dL Normal 70-100 Blood Urea Nitrogen 29 mg/dL High 7-18 Creatinine For GFR 0.89 mg/dL Normal 0.55-1.30 Glomerular Filtration Rate > 60.0 Normal >32 1 Sodium Level 139 mEq/L Normal 136-145 Potassium Serum 4.4 mEq/L Normal 3.5-5.1 Chloride Level 108 mEq/L High 98-107 Carbon Dioxide Level 27 mEq/L Normal 21-32 Anion Gap 4 mEq/L Low 8-16 Calcium Level 8.6 mg/dL Low 8.8-10.2 Ast/Sgot 28 U/L Normal 7-37 Alt/SGPT 38 U/L Normal 12-78 Alkaline Phosphatase 86 U/L Normal 45-117 Bilirubin,Total 0.5 mg/dL Normal 0.2-1.0 Total Protein 6.6 GM/DL Normal 6.4-8.2 Albumin 3.3 GM/DL Normal 3.2-5.2 Albumin/Globulin Ratio 1.0 Low 1.2-2.2 Lipid Panel 12/08/2020 [facility] Outpatient Testi ng (Registration) [address] [place] [phone] Triglycerides Level 124 mg/dL Normal <150 Cholesterol Level 146 mg/dL Normal <200 HDL Cholesterol 47 mg/dL Normal >40 LDL Cholesterol 74 mg/dL Normal <100 Non-HDL-C 99 mg/dL Normal Cholesterol Risk Ratio 3.106 Normal <5 1 Units are mL/min/1.73 m2 Chronic Kidney Disease Staging per NKF: Stage I & II GFR >=60 Normal to Mildly Decreased Stage III GFR 30-59 Moderately Decreased Stage IV GFR 15-29 Severely Decreased Stage V GFR <15 Very Little GFR Left ESRD GFR <15 on URBAN REDEVELOPMENT SPECIALIST Procedures Date Code Description Status 07/14/2020 59240 Office/Outpatient Established Mo d MDM 30-39 Min Completed Medical Devices Description No Information Available Encounters Type Date Location Provider Dx Diagnosis Office Visit 07/14/2020 2:00p [facility] Elvi Ordonez D.O. J44.0 Chr obstructive pulmon disea se with (acute) lower resp infct I10 Essential (primary) hyperten lauro E78.5 Hyperlipidemia, unspecified I25.10 Athscl heart disease of [place] coronary artery w/o ang pctrs K21.9 Gastro-esophageal reflux dis ease without esophagitis L40.8 Other psoriasis Assessments Date Code Description Provider 12/14/2020 Z00.00 Encounter for genera l adult medical examination without abnormal findings JANELL Bauer 07/14/2020 J44.0 Chronic obstructive pulmonary disease with (acute) lower respiratory infection Jessica MatamorosOParker 07/14/2020 I10 Essential (primary) hypertension Elvi Ordonez D.O. 07/14/2020 E78.5 Hyperlipidemia, unspecified Salazar Matamoros.[employer] 07/14/2020 I25.10 Atherosclerotic hear t disease of [place] coronary artery without angina pectoris Elvi Ordonez D.O. 07/14/2020 K21.9 Gastro-esophageal reflux disease without esophagitis Elvi Ordonez D.O. 07/14/2020 L40.8 Other psoriasis Elvi panda D.O. Plan of Treatment Future Appointment(s):* 12/20/2021 2:00 pm - Elvi Ordonez D.O. at [facility] 12/14/2020 - JANELL Bauer* Z00.00 Encounter for general adult medical examination without abnormal findings* New Medication:* Butalbital/Acetaminophen/Caffeine 50-325-40 mg - by mouth every 4 hours as needed headache * Comments:* Your exam was unremarkable today. Call for any concerns. * Follow up:* Annually with Dr. Lopez. Functional Status Description No Information Available Mental Status Description No Information Available Referrals Description No Information Available
--- OUTSIDE RECORDS SUMMARY | 2021-02-26 17:40 | CCD | Continuity of Care Document ---
Author Author Brittany TURCIOS PA Organization Unknown Address [address] [facility] [address] [place] [address] Phone [phone] Care Team Providers Care Graphics Manager Name Role Phone Elvi Ordonez D.O. AUTM Amando Solis D.P.M. AUTM Problems Active Problems Provider Date Hypercholesterolemia JANELL [...] F O2 % BldC Oximetry 93 % [place] Body Weight 100 lb 07/14/2020 1:59pm BP Systolic 118 mmHg BP Diastolic 72 mmHg Height 59.2 inches 4'11.20" Weight 150.12 lb BMI (Body Mass Index) 30.1 kg/m2 Heart Rate 74 /min Respiratory Rate 14 /min Body Temperature 97.6 F O2 % BldC Oximetry 98 % [place] Body Weight 100 lb Results Test Acquired Date Facility Test Result H/L Range Note Complete Blood Count 12/08/2020 [facility] Outpatient Test ing (Registration) [address] [place] [address] [phone] White Blood Count 5.5 10 Normal 4.0-10.0 [...] % Normal 0-0 Comprehensive Metabolic Profil 12/08/2020 [facility] Outpa tient Testing (Registration) [address] [place] [address] [id number] [phone] Glucose, Fasting 92 mg/dL Normal 70-100 Blood [...] Ratio 1.0 Low 1.2-2.2 Lipid Panel 12/08/2020 [facility] Outpatient Testi ng (Registration) [address] [place] [address] [phone] Triglycerides Level 124 mg/dL Normal <150 Cholesterol [...] Little GFR Left ESRD GFR <15 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 J44.0 Chr obstructive [...] pulmonary disease with (acute) lower respiratory infection Elvi Ordonez D.O. 07/14/2020 I10 Essential (primary) hypertension Elvi Ordonez D.OParker 07/14/2020 E78.5 Hyperlipidemia, unspecified Elvi Ordonez D.O. 07/14/2020 I25.10 Atherosclerotic hear t disease of [place] coronary artery without angina pectoris Salazar Matamoros.OParker 07/14/2020 K21.9 Gastro-esophageal reflux disease without esophagitis Elvi Ordonez D.OParker 07/14/2020 L40.8 Other psoriasis Elvi panda D.[employer] Plan of Treatment Future Appointment(s):* 12/20/2021 2:00 pm - Elvi Ordonez D.O. at [facility] 12/14/2020 - JANELL Bauer* Z00.00 [...]
--- OUTSIDE RECORDS SUMMARY | 2021-02-26 17:40 | CCD ---
Continuity of Care Document (CCD) Created on: 12/19/2020 Brittany Foley External Reference #: [id number] : 1940 Sex: Female Author Author Brittany IRVINC Organization Unknown Address [address], [place] [address] Phone [phone] Care Team Providers Care Registered Respiratory Technician Name Role Phone Bhavya Irvin PA-C AUTM [phone] José Luis Elvibasilio NOLASCO AUTM Problems Active Problems Provider Date Coronary arteriosclerosis Bhavya Irvin PA-C Onset: 2011 Old myocardial infarction Bhavya Irvin PA-C Onset: 2011 Patient post percutaneous transluminal coronary angiop lasty Bhavya Irvin PA-C Onset: 07/10/2011 Essential hypertension Bhavya Irvin PA-C Onset: 5 Complete atrioventricular block JANELL Pereira-C Onset: 07/10/2011 Pure hypercholesterolemia JANELL Pereira-C Onset: 2011 Mixed hyperlipidemia JANELL Pereira-Elisha Onset: 08/08/2016 Supraventricular premature beats Bhavya Irvin PA-C Onset: 02/06/2017 Social History Type Date Description Comments Sex Unknown Tobacco Use Start: Unknown End: Unknown Former Cigarette Smo ker 1/2ppd for 25 plus years, quit 1991 ETOH Use Consumes Beer very rare beer Tobacco Use Start: Unknown End: Unknown Patient is a former smoker 1/2ppd for 25 plus years, quit 1991 Smoking Status Reviewed: 12/14/20 Patient is a former smoker 1/ 2ppd for 25 plus years, quit 1991 Exercise Type/Frequency Walks daily around t he house and yard Exercise Type/Frequency Does gardening sporadica lly Exercise Type/Frequency Does yardwork sporadical ly mowing the lawn push and ride on Exercise Limitations Orthopedic Problem Left rufina t Allergies, Adverse Reactions, Alerts Active Allergies Criticality Reaction | Severity Comments Date Iodine Unable to assess criticality hives 04/16/2006 IVP Dye Unable to assess criticality hives 04/16/2006 Codeine Unable to assess criticality gi upset 04/16/2006 Demerol Unable to assess criticality gi upset 04/16/2006 Medications Active Medications SIG Qnty Indications Ordering Provide r Date Trelegy Ellipta 200- 62.5-25mcg/Inh Aerosol 1 by mouth every day Unknown [address] 1 by mouth every day Unknown 12/08/2019 Venlafaxine HCL 37.5mg Tablets 1 by mouth every day Unknown 09/02/2018 Atenolol 25mg Tablets 1 by mouth every day Dax Travis MD 018 Magnesium Oxide -MG Supplement 400mg Capsules 1 by mouth daily I49.1 Amando Steele MD 02/06 Atorvastatin Calcium 40mg Tablets 1 by mouth every night at bedtime E78.0 Amando Steele MD 01/26/2015 I25.10 Vitamin D-3 1000Unit Tablets 1 po qd Unknown 02/14/2013 Aspirin 81mg Tablets 1 po mayra ly Amando Steele MD 01/13/2012 Multivitamins Tablets 1 PO d Sheldon Cordova DO 04/28/2007 Estradiol 0.05mg/24HR Patches Week ly 1 patch weekly Starla DENIS MD, [facility] F 008 Nitrostat 0.4mg Tablets Sub 1 sl q5min x3 for chest pain 25tabs I25.10 Amando Steele MD Enalapril Maleate 10mg Tablets 1/2 by mouth daily 45tabs I25.10 Amando Steele MD I10 Immunizations Description No Information Available Vital Signs Date Vital Result Comment 12/14/2020 12:59pm Weight 150.00 lb Home Weight 149lb Height 60 inches 5'0" BMI (Body Mass Index) 29.3 kg/m2 Heart Rate 68 /min Regular Respiratory Rate 16 /min BP Systolic Right Arm 126 mmHg sitting, regular c uff BP Diastolic Right Arm 76 mmHg sitting, regular cuff BP Systolic Left Arm 124 mmHg sitting BP Diastolic Left Arm 76 mmHg sitting 12/09/2019 1:31pm Weight 149.00 lb Home Weight 145lb Height 60 inches 5'0" BMI (Body Mass Index) 29.1 kg/m2 Heart Rate 88 /min Regular Respiratory Rate 16 /min BP Systolic Right Arm 138 mmHg sitting, regular c uff BP Diastolic Right Arm 76 mmHg sitting, regular cuff BP Systolic Left Arm 136 mmHg sitting BP Diastolic Left Arm 76 mmHg sitting Results Test Acquired Date Facility Test Result H/L Range Note Comprehensive Metabolic Profil 12/08/2020 [facility] [phone] Glucose, Fasting 92 mg/dL Normal 70-100 Blood [...] Ratio 1.0 Low 1.2-2.2 Lipid Panel 12/08/[address] [facility] nter [phone] Triglycerides Level 124 mg/dL Normal <150 Cholesterol Level 146 mg/dL Normal <200 HDL Cholesterol 47 mg/dL Normal >40 LDL Cholesterol 74 mg/dL Normal <100 Non-HDL-C 99 mg/dL Normal Cholesterol Risk Ratio 3.106 Normal <5 Complete Blood Count 12/08/2020 [facility] enter [phone] White Blood Count 5.5 10 Normal 4.0-10.0 [...] Blood Cell % 0.0 % Normal 0-0 1 Units are mL/min/1.73 m2 Chronic Kidney Disease Staging per NKF: Stage I & II GFR >=60 Normal to Mildly Decreased Stage III GFR 30-59 Moderately Decreased Stage IV GFR 15-29 Severely Decreased Stage V GFR <15 Very Little GFR Left ESRD GFR <15 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 Procedures Date Code Description Status 12/14/2020 24066 Office/Outpatient Established Mo d MDM 30-39 Min Completed 12/14/2020 23413 ECG 12-Lead Completed Medical Devices Description No Information Available Encounters Type Date Location Provider Dx Diagnosis Office Visit 12/14/2020 1:00p Main Office Bhavya Irvin PA-C I25.1 0 Athscl heart disease of [place] coronary artery w/o ang pctrs I25.2 Old myocardial infarction Z95.5 Presence of coronary angiopl asty implant and graft I49.1 Atrial premature depolarizat ion I10 Essential (primary) hyperten lauro I44.2 Atrioventricular block, comp lete E78.2 Mixed hyperlipidemia Assessments Date Code Description Provider 12/14/2020 I25.10 Atherosclerotic heart disease of [place] coronary artery with Bhavya Irvin PA-C 12/14/2020 I25.2 Old myocardial infarction Bhavya Irvin PA-C 12/14/2020 Z95.5 Presence of coronary angioplasty implant and graft Bhavya Irvin PA-C 12/14/2020 I49.1 Atrial premature depolarization Bhavya Irvin PA-C 12/14/2020 I10 Essential (primary) hypertension Bhavya Irvin PA-C 12/14/2020 I44.2 Atrioventricular block, complete Bhavya Irvin PA-C 12/14/2020 E78.2 Mixed hyperlipidemia Bhavya esteban PA-C Plan of Treatment Future Appointment(s):* 12/13/2021 1:00 pm - Bhavya Irvin PA-C at Main Office 12/14/2020 - Bhavya Irvin PA-C* I25.10 Atherosclerotic heart disease of [place] coronary artery with* New Labs:* Comprehensive Metabolic Profil, Scheduled: 12/10/21 * Lipid Panel, Scheduled: 12/10/21 * Complete Blood Count, Scheduled: 12/10/21 * I25.2 Old myocardial infarction * Z95.5 Presence of coronary angioplasty implant and graft * I49.1 Atrial premature depolarization * I10 Essential (primary) hypertension* New Labs:* Comprehensive Metabolic Profil, Scheduled: 12/10/21 * I44.2 Atrioventricular block, complete * E78.2 Mixed hyperlipidemia* New Labs:* Comprehensive Metabolic Profil, Scheduled: 12/10/21 * Lipid Panel, Scheduled: 12/10/21 * All * Follow up:* 12 month follow up. Functional Status Functional Condition Comment Date Status Independent with all ADL's Activ e Mental Status Description No Information Available Referrals Description No Information Available
--- OUTSIDE RECORDS SUMMARY | 2021-02-26 17:41 | CCD | Continuity of Care Document ---
Author Organization Unknown Address Unknown Phone Unavailable Care Team Providers Care Liquor Rectifier Name Role Phone Bhavya Simmons Janessa PA-C AUTM [phone] José Luis Elvi AUTM [phone] Problems Active Problems Provider Date Coronary arteriosclerosis Bhavya Janessa Simmons, PA-C Onset: 2011 Old myocardial infarction Bhavyajanessa Simmons PA-C Onset: 2011 Patient post percutaneous transluminal coronary angiop lasty Bhavya Janessa Simmons PA-C Onset: 07/10/2011 Essential hypertension Bhavya Janessa Simmons, PA-C Onset: 5 Complete atrioventricular block Bhavya Janessa Simmons, PA-C Onset: 07/10/2011 Pure hypercholesterolemia Bhavya Janessa Simmons, PA-C Onset: 2011 Mixed hyperlipidemia Bhavyajanessa Simmons, PA-C Onset: 08/08/2016 Supraventricular premature beats Bhavya Janessa Simmons, PA-C Onset: 02/06/2017 Social History Type Date Description Comments Sex Unknown Tobacco Use Start: Unknown End: Unknown Former Cigarette Smo ker 1/2ppd for 25 plus years, quit 1991 ETOH Use Consumes Beer very rare beer Tobacco Use Start: Unknown End: Unknown Patient is a former smoker 1/2ppd for 25 plus years, quit 1991 Smoking Status Reviewed: 12/09/19 Patient is a former smoker 1/ 2ppd for 25 plus years, quit 1991 Exercise Type/Frequency Does yardwork three time s a week Exercise Type/Frequency Does gardening 5 times a week Exercise Type/Frequency Does housework 4 times a week Exercise Type/Frequency Walks 4 times a week Exercise Limitations Orthopedic Problem Left rufina t Allergies, Adverse Reactions, Alerts Active Allergies Criticality Reaction | Severity Comments Date Iodine Unable to assess criticality hives 04/16/2006 IVP Dye Unable to assess criticality hives 04/16/2006 Codeine Unable to assess criticality gi upset 04/16/2006 Demerol Unable to assess criticality gi upset 04/16/2006 Medications Active Medications SIG Qnty Indications Ordering Provide r Date Nexium 20mg Capsules DR 1 by mouth [...] Available Vital Signs Date Vital Result Comment 12/09/2019 1:31pm Weight 149.00 lb Home Weight 145lb Height 60 inches 5'0" BMI (Body Mass Index) 29.1 kg/m2 Heart Rate 88 /min Regular Respiratory Rate 16 /min BP Systolic Right Arm 138 mmHg sitting, regular c uff BP Diastolic Right Arm 76 mmHg sitting, regular cuff BP Systolic Left Arm 136 mmHg sitting BP Diastolic Left Arm 76 mmHg sitting 09/03/2018 1:36pm Weight 148.00 lb Home Weight 140lb home weight Height 60 inches 5'0" BMI (Body Mass Index) 28.9 kg/m2 Heart Rate 72 /min Regular Respiratory Rate 16 /min BP Systolic Right Arm 142 mmHg Sitting, regular c uff BP Diastolic Right Arm 72 mmHg Sitting, regular cuff BP Systolic Left Arm 136 mmHg Sitting BP Diastolic Left Arm 72 mmHg Sitting Results Test Acquired Date Facility Test Result H/L Range Note Comprehensive Metabolic Profil 12/08/2020 [facility] [phone] Glucose, Fasting 92 mg/dL Normal 70-100 Blood [...] Ratio 1.0 Low 1.2-2.2 Lipid Panel 12/08/2020 [facility] nter [phone] Triglycerides Level 124 mg/dL Normal <150 Cholesterol Level 146 mg/dL Normal <200 HDL Cholesterol 47 mg/dL Normal >40 LDL Cholesterol 74 mg/dL Normal <100 Non-HDL-C 99 mg/dL Normal Cholesterol Risk Ratio 3.106 Normal <5 Complete Blood Count 12/08/2020 [facility] enter [phone] White Blood Count 5.5 10 Normal 4.0-10.0 [...] Little GFR Left ESRD 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 <15 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 Procedures Description No Information Available Medical Devices Description No Information Available Encounters Description No Information Available Assessments Description No Information Available Plan of Treatment Future Appointment(s):* 12/14/2020 1:00 pm - Bhavya Simmons PA-C at Main Office 12/09/2019 - Bhavya Simmons PA-C* I25.10 Atherosclerotic heart disease of [place] coronary artery with * I25.2 Old myocardial infarction * Z95.5 Presence of coronary angioplasty implant and graft * I49.1 Atrial premature depolarization * I10 Essential (primary) hypertension * I44.2 Atrioventricular block, complete * E78.2 Mixed hyperlipidemia * All * Follow up:* 12 month follow up. Functional Status Functional Condition Comment Date Status Independent with all ADL's Activ e Mental Status Description No Information Available Referrals Description No Information Available
--- OUTSIDE RECORDS SUMMARY | 2021-02-26 17:41 | CCD | Continuity of Care Document ---
Author Author Brittany IRVINC Organization Unknown Address [address], [place] [address] Phone [phone] Care Team Providers Care Windows Admin Name Role Phone Bhavya Irvin PA-C AUTM [phone] José Luis Elvibasilio NOLASCO AUTM Problems Active Problems Provider Date Coronary arteriosclerosis Bhavya Irvin PA-C Onset: 2011 Old myocardial infarction KARYNA PereiraC Onset: 2011 Patient post percutaneous transluminal coronary angiop lasty Bhavya Irvin PA-C Onset: 07/10/2011 Essential hypertension KARYNA PereiraC Onset: 5 Complete atrioventricular block JANELL Pereira-C Onset: 07/10/2011 Pure hypercholesterolemia Bhavya Irvin PA-C Onset: 2011 Mixed hyperlipidemia JANELL Pereira-C Onset: 08/08/2016 Supraventricular premature beats JANELL Pereira-Elisha Onset: 02/06/2017 Social History Type Date Description [...] ly 1 patch weekly Starla DENIS MD, [facility] 008 Nitrostat 0.4mg Tablets Sub 1 sl [...] H/L Range Note Comprehensive Metabolic Profil 12/08/2020 [facility] [phone] Glucose, Fasting 92 mg/dL Normal 70-100 Blood [...] Ratio 1.0 Low 1.2-2.2 Lipid Panel 12/08/2020 [facility] nter [phone] Triglycerides Level 124 mg/dL Normal <150 Cholesterol Level 146 mg/dL Normal <200 HDL Cholesterol 47 mg/dL Normal >40 LDL Cholesterol 74 mg/dL Normal <100 Non-HDL-C 99 mg/dL Normal Cholesterol Risk Ratio 3.106 Normal <5 Complete Blood Count 12/08/2020 [facility] enter [phone] White Blood Count 5.5 10 Normal 4.0-10.0 [...] Little GFR Left ESRD 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
--- OUTSIDE RECORDS SUMMARY | 2021-02-26 17:41 | CCD | Continuity of Care Document ---
Author Author Brittany IRVINC Organization Unknown Address [address], [place] [address] Phone [phone] Care Team Providers Care Merchandise Executive Name Role Phone Bhavya Irvin PA-C AUTM [phone] José Luis Elvibasilio NOLASCO AUTM Problems Active [...] H/L Range Note Comprehensive Metabolic Profil 12/08/2020 [facility] [phone] Glucose, Fasting 92 mg/dL Normal 70-100 Blood [...] Ratio 1.0 Low 1.2-2.2 Lipid Panel 12/08/2020 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 Procedures Date Code Description Status 12/14/2020 56242 Office/Outpatient Established Mo d MDM 30-39 Min Completed 12/14/2020 21473 ECG 12-Lead Completed Medical Devices Description No Information Available Encounters Type Date Location Provider Dx Diagnosis Office Visit 12/14/2020 1:00p Main Office Bhavya Irvin PA-C I25.1 0 Athscl heart disease of [place] coronary artery w/o ang pctrs I25.2 Old myocardial infarction Z95.5 Presence of coronary angiopl asty implant and graft I49.1 Atrial premature depolarizat ion I10 Essential (primary) hyperten lauro I44.2 Atrioventricular block, comp lete E78.2 Mixed hyperlipidemia Assessments Date Code Description Provider 12/14/2020 I25.10 Atherosclerotic heart disease of [place] coronary artery with Bhavya Irvin PA-C 12/14/2020 [...] Irvin PA-C* I25.10 Atherosclerotic heart disease of [place] coronary artery with* New Labs:* Comprehensive Metabolic [...]
--- OUTSIDE RECORDS SUMMARY | 2021-02-26 17:41 | CCD ---
Continuity of Care Document (CCD) Created on: 12/11/2020 OgUlissesBrittany Annalisa External Reference #: [id number] : 1940 Sex: Female Author Organization Unknown Address Unknown Phone Unavailable Care Team Providers Care Cruise Coordinator Name Role Phone Elvi Orodnez D.O. AUTM Amando Solis D.P.M. AUTM [phone] Problems Active Problems Provider Date Hypercholesterolemia JANELL [...] End: Unknown Quit 12/21 Smoking Status Reviewed: 07/14/20 Quit 01/14/1992 ETOH Use Currently consumes alcohol [...] SIG Qnty Indications Ordering Provide r Date Mucinex 600mg Tablets ER 12HR 1 tab every 12 hours as needed 60tabs J44.0 Salazar Matamoros.O. Trelegy Ellipta 100- 62.5-25mcg/Inh Aerosol one inhalation daily 30units Salazar Matamoros.O. 07/14/2020 Tacrolimus 0.03% Ointment apply to rash behind, around and in ears twice daily as needed 100gm L40.8 Salazar Hernandez.OParker 07/14/2020 Meloxicam 7.5mg Tablets 1 by mouth twice daily with food as needed 60tabs M25.562 Salazar Matamoros.O. 02/02/2020 Clobetasol Propionate E 0.05% Crea m 1 apply to ear canals, elbows, knees, and ears twice a day psoriasis 65grams L40.0 Salazar Matamoros.OParker 10/27/2019 Combivent Respimat 20-100mcg/Act A erosol inhale 1 puff by mouth every 4 hours Unknown Magnesium 250mg Tablets 1 by mouth a day Unknown Hydrocortisone-Acetic Acid 1-2% So lution apply 3-5 drops to left ear 4-6 times daily Unkn own Nexium 20mg Capsules DR 1 by mouth every day Unknown Vitamin D3 25mcg (1000 Ut) Capsule [...] at bedtime 90tabs Elvi Harvey er, D.O. Anoro Ellipta 62.5-25mcg/Inh Aeros ol inhale 1 puff by mouth d 1units Eliv Ordonez D .O. Venlafaxine HCL ER 37.5mg Caps ER 24HR take 1 capsule by mouth once a day with food 90caps Elvi Ordonez D.O. Enalapril Maleate 10mg Tablets take 1/2 tablet by mouth daily as directed 45tabs Elvi Salgado D.O. Atenolol 50mg Tablets tk 1 t by mouth every day 90tabs Elvi Ordonez D.O. Immunizations Description No Information Available Vital Signs Date Vital Result Comment 07/14/2020 1:59pm BP Systolic 118 mmHg BP Diastolic 72 mmHg Height 59.2 inches 4'11.20" Weight 150.12 lb BMI (Body Mass Index) 30.1 kg/m2 Heart Rate 74 /min Respiratory Rate 14 /min Body Temperature 97.6 F O2 % BldC Oximetry 98 % [place] Body Weight 100 lb 02/02/2020 4:13pm BP Systolic 128 mmHg BP Diastolic 80 mmHg Height 59.2 inches 4'11.20" Weight 152.00 lb BMI (Body Mass Index) 30.5 kg/m2 Heart Rate 76 /min Respiratory Rate 16 /min Body Temperature 97.7 F O2 % BldC Oximetry 96 % [place] Body Weight 100 lb Results Test Acquired Date Facility Test Result H/L Range Note Complete Blood Count 12/08/2020 [facility] Outpatient Test ing (Registration) [address] [place], [place] [id number] [phone] White Blood Count 5.5 10 Normal 4.0-10.0 [...] % Normal 0-0 Comprehensive Metabolic Profil 12/08/2020 [facility] Outpa tient Testing (Registration) [address] [place] [address] [phone] Glucose, Fasting 92 mg/dL Normal 70-100 Blood [...] Ratio 1.0 Low 1.2-2.2 Lipid Panel 12/08/2020 [facility] Outpatient Testi ng (Registration) [address] [place] [id number] [phone] Triglycerides Level 124 mg/dL Normal <150 Cholesterol [...] Little GFR Left ESRD 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 <15 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8 Other psoriasis Assessments Date Code Description Provider 07/14/2020 J44.0 Chronic obstructive pulmonary disease with (acute) lower respiratory infection Elvi Ordonez D.OParker 07/14/2020 I10 Essential (primary) hypertension Salazar Matamoros.OParker 07/14/2020 E78.5 Hyperlipidemia, unspecified Salazar Matamoros.OParker 07/14/2020 I25.10 Atherosclerotic hear t disease of [place] coronary artery without angina pectoris Salazar Matamoros.OParker 07/14/2020 K21.9 Gastro-esophageal reflux disease without esophagitis Salazar Matamoros.OParker 07/14/2020 L40.8 Other psoriasis Elvi panda D.O. Plan of Treatment Future Appointment(s):* 12/14/2020 2:40 pm - JANELL Bauer at [facility] Functional Status Description No Information Available Mental Status Description No Information Available Referrals Description No Information Available
--- OUTSIDE RECORDS SUMMARY | 2021-02-26 17:41 | CCD ---
Author Author [facility] Organization [facility] Address Unknown Phone Unavailable Care Team Providers Care Pattern Chart Writer Name Role Phone Shiloh Simmons Unavailable Unavailable Symenow, Shiloh Latif PA Unavailable Unavailable Symenow, Shiloh Latif PA Unavailable Unavailable Symenow, Shiloh Latif PA Unavailable Unavailable Symenow, Shiloh Latif PA Unavailable Unavailable SymenowShiloh PA Unavailable Unavailable Symenow, Shiloh Latif PA [...] Unavailable Unavailable OBINNA-STAN, GISELE DO Unavailable Unavailable OBNINA-STAN, GISELE DO Unavailable Unavailable OBINNA-STAN, GISELE DO [...] is protected by Article 27-F of the [facility] Public Health law. If you continue you may have access to information: Regarding HIV / AIDS; Provided by facilities licensed or operated by the [facility] Office of Mental Health; or Provided by the [facility] Office for People With Developmental Disabilities. If such information is present, then the following [facility] mandated warning applies: This information has been [...] Unknown Problem [facility] ([facility]) Unknown Unknown Problem [facility] ([facility]) Unknown Unknown Problem [facility] ([facility]) Unknown Unknown Problem [facility] ([facility] ) Encounters Encounter Providers Location Date Indications Data Source(s ) Office Visit Attender: Rafa MACIEL [facility] 12/14/2020 02:40:00 PM EDT [facility] ([facility]) Outpatient Attender: Bhavya MACIEL Main Office 12/14/2020 01:00:00 PM EDT [facility] ([facility]) Outpatient Attender: GISELE ARIAS [facility] 07/14/2020 02:00:00 PM EDT [facility] ([facility]) Outpatient Attender: GISELE ARIAS [facility] 02/02/2020 04:20:00 PM EDT [facility] ([facility]) Outpatient Attender: GISELE ARIAS [facility] 01/27/2020 01:10:00 PM EDT [facility] ([facility]) Immunizations Vaccine Date Status Description Data Source(s) COVID-19 VACCINE [facility] 07/19/2020 12:00:00 AM EDT completed [facility] Vaccine Series Complete: YESThis Data wa s Submitted to [facility] Via [employer]. Medications Medication Brand Name Start Date Product Form Dose Route Admi nistrative Instructions Pharmacy Instructions Status Indications Reaction Description Data Source(s) Acetaminophen 325 MG / butalbital 50 MG / Caffeine 40 MG Oral Tablet Butalbital/Acetaminophen/Caffeine 12/14/2020 12:00:00 AM EDT ORAL active [facility] Trelegy Ellipta Trelegy Ellipta 12/13/2020 12:00:00 AM EDT ORAL active [facility] ([facility] Trelegy Ellipta Trelegy Ellipta 07/14/2020 12:00:00 AM EDT active [facility] ([facility]) Tacrolimus 0.0003 MG/MG Topical Ointment Tacrolimus 021 12:00:00 AM EDT active [facility] ( [facility]) 12 HR Guaifenesin 600 MG Extended Release Oral Tablet [Mucin ex] Mucinex 07/14/2020 12:00:00 AM EDT active [facility] ([facility]) meloxicam 7.5 MG Oral Tablet Meloxicam 02/02/2020 12:00:00 AM EDT ORAL active [facility] ([facility]) Acetaminophen 300 MG / butalbital 50 MG / Caffeine 40 MG Oral Capsule [Fioricet] Fioricet 01/27/2020 12:00:00 AM EDT ORAL complete d MED[facility] ([facility]) Insurance Providers Payer name Policy type / Coverage type Policy ID Covered democrat ID Covered democrat's relationship to bravo Policy Bravo Plan Information [id number] A Medicare (Part B) Medicare Primary [id number] Self 1 [id number] [facility] Part B [id number] Self [id number] Medicare (Part B) Medicare Primary [id number] Self [id number] [facility] Health Care [facility] Part B [id number] Self [id number] Medicare [place] Medicare Primary [id number] Self [id number] [facility] Health Care Options [facility] Part B [id number] Self [id number] Medicare (Part B) Medicare Primary [id number] Self 1 [id number] Medicare (Part B) Medicare Primary [id number] Self [facility] Part B [id number] Self [id number] [facility] Part B [id number] Self MEDICARE [id number] SP [id number] A Medicare (Part B) Medicare Primary [id number] [id number] Self [id number] [facility] Part B [id number] Self [id number] Medicare Medicare Primary [id number] Self Medicare (Part B) Medicare Primary [id number] Self 1 [id number] [employer] OPTIONS [id number] SP [id number] ANSI-Commercial [id number]-[id number] [id number]-w342-893s-59ks-[id number] ANSI-Medicare Part B [id number] ANSI-Commercial [id number]-nvw1-9gxx-9eyi-48zg6e3b1405 1xq55495-seo9-7jqm-8ywz-04wj3f3t9807 ANSI-Medicare Part B [id number] ANSI-Commercial vl1e5vku-x480-171m-3l27-i9s9030et430 af6h5bfx-j046-238c-8w37-o5a8434wr347 ANSI-Medicare Part B [id number]-y85z-m1168g3n04te ANSI-Commercial ox372515-3952-7925-xm23-38161y894o11 nc144787-8617-4943-xh89-69806u358m14 ANSI-Medicare Part B [id number]-[id number] ANSI-Commercial 2lkg44y9-1550-02j8-gr81-45f48n90m7m5 6jfm81o8-4038-07m5-ye09-92a04n45j9c9 ANSI-Commercial 01ec413l-690z-467d-5714-yrg25uuw6q6x 69hh872a-676u-977p-4292-fyf18heg4u7v ANSI-Medicare Part B [id number] 2wn4b5pa-16qt-9831-80n6-4d16siaj65go ANSI-Medicare Part B [id number]-k9i4-1c44-234w-[id number] ANSI-Commercial g21mc050-5470-00fl-9911-70e803g373jd l57ag433-9752-57ea-7920-74s362l066bf ANSI-Medicare Part B [id number]-1j20-96k8-7bi9-[id number] ANSI-Commercial 059agd22-s73m-27pq-79ym-463k2i9272ot 477kee23-f63i-64gd-53dy-078k2n0492qb BC/BS [facility] B [id number] Family Dependent [id number] BC/BS [facility] Part B [id number] Family Dependent [id number] ANSI-Medicare Part B [id number]-08go-1712-873mb1ncy58p ANSI-Commercial 65k264is-835y-8hf7-3s4k-212zjl503q97 04d277hn-009r-7dc9-9o0t-293enf566z19 MEDICARE [id number] A ANSI-Medicare Part B [id number]-7703-631p-040o-[id number] ANSI-Commercial 8xu9xw64-u5o0-3278-21o2-8fb50d86v758 1cv9za00-t3c6-9615-15v2-4kc23o26v612 ANSI-Commercial t035p261-0893-7743-rvtf-k1l570843675 y564u861-9472-3541-vwwo-r7w929743655 ANSI-Medicare Part B [id number]-c384-9050j2t8h425 7986h7ye-j824-8v31-a936-8080l9b0j029 ANSI-Medicare Part B [id number]-[id number] [id number]-2jp3-u5f6-069d96wu4072 ANSI-Commercial 2w0659jj-l3d3-7b6w-0sb7-470higfp675t 7v0879gq-c6y1-1o2e-3nc6-996pefrm765r ANSI-Commercial 4n00m2b4-o7nr-1869-4e4i-87v00488p22a 9t03f5z3-n0ch-8049-8y5g-34y13947f17p ANSI-Medicare Part B [id number]-0ga3-858z9544c47t chf9o742-x208-306k-3hj1-313a6580w36z ANSI-Commercial 5b63wt0n-maw6-1u27-22e2-203r1qy7gx5x 1b79vs6d-fdn3-3f55-18y2-772y5nm0fg2g ANSI-Medicare Part B 54gz0x4r-6k2c-2992-584l-9v035x978330 54zs2t0r-7u2k-4375-546h-3q496k626413 ANSI-Commercial 8y6015uu-1204-4umc-7356-y2pq681h7mwi 5o5871jt-8506-1mkx-8865-u3re503x0nqa ANSI-Medicare Part B 9g07lpul-649d-29yi-8983-19ztj1d8h7kx 5z22akhv-602h-06qv-3295-06vnl2h7o8gr ANSI-Commercial 9qf9c5zr-e5p7-79e7-29t1-44s0761y7544 5eq3m7ke-o7v6-83d9-85x1-17o3367z8469 ANSI-Medicare Part B 0y34vt27-5ptd-435n-49da-m3725uz5365w 8m94fm83-9coz-500h-05bl-j5073qh5043z ANSI-Commercial 1nx4w436-059n-957q-w87r-9q129otx3729 1ck8t113-227h-712r-f45x-4d955nsv3142 ANSI-Medicare Part B 7j637rgj-74z8-8755-u5a7-80h89ft10t17 0o478pup-55a6-8444-z6v2-40x70mn23y89 ANSI-Commercial n0pk09lk-635k-5s30-a4s4-03d47awj59d8 t4ze57ja-821n-2m24-j8r3-38l92six02q8 ANSI-Medicare Part B 5ac12z97-gwe5-136j-e151-17d60239p3cs 0pi18j44-kfh6-231h-t929-90t79476t5tf ANSI-Medicare Part B 67wyy63s-3208-1qi6-0sx4-q2i4l27h77o1 76hds21r-9890-4vr4-1uv5-n6h6t03r01m6 ANSI-Commercial 96l56jmv-515b-3q68-p955-c9xv5903ev08 12y22pqs-575k-7r31-m273-x7zc5138qx82 ANSI-Commercial 954836sl-qr3b-35c4-t69q-j4uup23971su 177433cf-iu0j-73o4-d67o-k4qpa62158kf ANSI-Medicare Part B 47idg3n8-1s98-6n9j-p756-ky69hp583y9p 48zkb7f2-3i76-1n6q-m434-an85bj373c3q ANSI-Commercial 32t265s4-551t-4rc6-w51j-41n1w0lb2gp6 67p547w1-967u-6fj6-e17k-80b2o1xc4cn5 ANSI-Medicare Part B iu09o598-tn08-5fa6-i3i7-721c10pjd833 vt12a161-di76-2de5-p5y8-717x27cum427 ANSI-Commercial 0m5721a8-7u4x-56g1-5lij-0j0jy7ur5n4d 6u2057q8-0w5j-56m1-5leu-3c8hv6fo4b6o ANSI-Medicare Part B x810946f-2qf9-0414-ng99-3o0eq9gk862c w542555i-3xw3-5103-vv92-5a7ml1dn854e ANSI-Commercial 4ly40s7i-04sv-6175-5245-o4s038mxt9cb 5tb81w0z-47ki-6064-1153-m0k770lkk4ia ANSI-Medicare Part B o86h1450-f9i3-7655-z349-j3967ej9s612 r81k8216-y4h4-6556-w627-k4396bv7d232 ANSI-Medicare Part B 37828as7-1kjh-0kf0-2z44-9iccp37301s1 29817uk8-7zzo-7lk3-3g98-8yebr98498g6 ANSI-Commercial dxz25035-ed93-07w3-tb33-w3be0ba795do waw54717-bv30-64c6-mr11-t4cm2xi492li ANSI-Commercial 215r055y-9d5o-2951-4p84-i96q1v381mos 419c866g-7d8r-8057-5q04-z28z4h779lkm ANSI-Medicare Part B n5z72584-49i3-525x-in13-0707a4m9909l c7l84406-63z3-953l-uh29-9329b7d9429g ANSI-Medicare Part B 60l9382x-bse0-1177-l4ee-9tq20k6ah736 17k0256n-scw4-2704-e9ib-8cb11o7tu170 ANSI-Commercial d1811iv0-4x14-9p40-u756-2f3321639qc4 u6105md5-1j60-1w22-x523-5g1484878ur3 ANSI-Medicare Part B 73q91792-9540-9749-p4f8-733i0y0x0340 18p67080-9786-7270-g8l8-315j2r8s5530 ANSI-Commercial 9wv23734-2mpt-0b20-0w42-c9y037zy92q3 9nb20313-3krm-0u87-1b68-s7e047ra52v8 ANSI-Medicare Part B y162990v-s2h8-95k5-z8i6-e749k7fk58b5 t918540q-f8r6-85z2-e4a9-e767s3gg89o3 ANSI-Commercial sny79uh7-966n-8yue-595u-92f10ul13f1v ovn56hs4-837w-3ksc-483c-66c65rt16z1u ANSI-Medicare Part B 3h2m1752-05y1-0no2-48pk-k06910423vbs 5y7m2204-66a5-6sd0-40kc-c46947719qdq ANSI-Commercial 03a78oj8-9629-2cf1-g6uh-j09no6w8483g 99z42dz4-5930-3gd8-v6go-i56gx7m4826g ANSI-Medicare Part B 68p776s1-cdd6-22yh-o282-s8n1wfsvfq97 05m234r3-lll8-22mn-j360-q8v6jxdkdo77 ANSI-Commercial n66fs0j3-hg0w-5155-ffn5-07qu80cgx42s s32wi8z1-rb5g-6827-ess6-45jv23kcn02z ANSI-Medicare Part B 87593bfb-1s46-50xb-211o-2v3dv6v51v47 05283itg-2j11-12tz-418n-8y2ir1b07x85 ANSI-Commercial 382608dq-zr4r-072k-4m11-o80e2un72r01 780529xr-ce9z-197r-5j12-b45l2vb82t51 ANSI-Medicare Part B crg7pfy2-09f3-2975-lq7i-b19p49yj4z04 xrq2tap9-36l4-0512-ca0d-h73u90vu9y22 MEDICARE [id number] SP 6R71CC2Z X36 ANSI-Commercial f84q78o6-0215-7u30-352i-617tw9k402ou g86j14d6-1178-1p81-292u-869zj6w488ly ANSI-Medicare Part B x596044l-87oj-8c96-0g15-65m30r768b6l g768616q-63oy-8r37-6l80-43u07j632z2x ANSI-Medicare Part B l23yo811-m930-382m-38pw-88e8af23p9sg g91sr961-j159-286a-20vc-50k7zz99r4zk ANSI-Commercial b2206q8d-t1l6-685y-qn09-zs5tfj4559mv h9864r9k-m1c4-465q-wz88-fd8zvb0423zi ANSI-Commercial 76008015-689x-1964-0322-wa8308818k50 86333298-455g-6378-1027-uu1786546l51 ANSI-Medicare Part B 1q725048-3073-1s92-v9n0-5i5h1cy3yd6j 4g784672-8205-7b48-q9u4-5p2a9vl3ls9j ANSI-Commercial 8l34fgz6-9581-81r9-6lxf-klq4rj3qob22 3c04tok6-7493-57l1-1xfl-yyx9yo0mqe07 ANSI-Medicare Part B 906b2627-kc2f-850w-v250-mmv4w2869939 178n5408-gt4n-640z-b946-sbb4z0035698 ANSI-Medicare Part B 834g77x6-1ep5-1538-0034-1h36538x775s 832i83f4-9aw3-0810-5297-9n12470c920x ANSI-Commercial v89886a4-447s-1sf8-94du-2b458v61i295 g58298h3-485q-4xj0-72zy-0r931n82e451 ANSI-Medicare Part B 901yrcm9-0x60-62yj-2w63-q557l2636ecw 057mktk4-5d61-48qn-0k24-i508v1196wjd ANSI-Commercial 0k060428-ib94-7c42-cz6j-60y7540wm0z3 9b975655-rx62-0w96-vm6e-82q3587fq6e1 ANSI-Commercial 46a9ro60-9078-00ap-0781-3c9977d07j98 87l6yz11-1233-49nx-9282-4i9905k15t58 ANSI-Medicare Part B tw36r89k-536m-4m40-y391-v40252lgt070 qp76e91c-228b-2s91-q040-u29962apo528 ANSI-Medicare Part B s00p64z2-241t-2019-h463-024len4ws122 s50g42x8-396u-1931-m750-209pam2ig922 ANSI-Commercial s81n1397-193r-7215-6421-5q8b974hv858 e63h3025-265z-0786-2959-3f8y716xg611 [facility] Part B [id number] 2.16.840.1.124164.3.227.99.1629.93.0 Self [id number] ANSI-Medicare Part B 3rm0hdg3-n025-9722-5693-1y9n79fr24eo 2dp2jap6-q266-7586-2497-2d4v31ca58dm ANSI-Commercial 9489w4fu-29fs-9060-7o49-8s4288m119z1 2903e5ho-74gg-2655-9j27-6s7806l477w3 ANSI-Commercial 102sh72u-73a9-3g8d-ma76-m25569669723 694cf87o-34s8-6w1j-ne46-c59748049371 ANSI-Medicare Part B v0ae7rm0-7p98-0p0j-23k6-4fp8ff2f39o2 o0yp5iu1-4v40-5g8c-48s2-0uu8gg6t73y0 ANSI-Commercial 760k169u-2o33-492i-3175-58dg925d0u0p 302x594x-8j55-155n-1153-72xn085m5g7x ANSI-Medicare Part B t9179469-20ml-411v-yw2m-52ei134280af h3300678-05zb-413g-xi9k-47dt449195xu BC/BS Of [facility] B [id number] 2.0.1.407389.3.227.99.572.50907.0 Family Dependent H [id number] [place] Part B [id number] 2.0.1.536725.3.227.99.8646.9 6039.0 Self [id number] Medicare [place]/NGS Medicare Primary [id number] 2.0.1.404871.3.227.99.8646.58692.0 Self [id number] [facility] Part B [id number] 2.0.1.675340.3.227.99.8646.9 6039.0 Self [id number] Medicare [place]/NGS Medicare Primary [id number] 2.0.1.594555.3.227.99.8646.56758.0 Self [id number] [facility] Part B [id number] 2..1.181597.3.227.99.8646.9 6039.0 Self [id number] Medicare [place]/NGS Medicare Primary [id number] 2.0.1.571886.3.227.99.8646.36012.0 Self [id number] BC/BS Of [facility] B [id number] 2.0.1.670907.3.227.99.572.11185.0 Family Dependent H [id number] [facility] Part B [id number] 2.0.1.178038.3.227.99.8646.9 6039.0 Self [id number] Medicare [place]/NGS Medicare Primary [id number] 2.0.1.128297.3.227.99.8646.97594.0 Self [id number] BC/BS Of [facility] Part B [id number] 2.0.1.021643.3.227.99.572.41214.0 Family Dependent H [id number] BC/BS Of [facility] Part B [id number] Family Depen dent [facility] [place] Part B [id number] Self Medicare [place]/NGS Medicare Primary [id number] Self [id number] ANSI-Commercial 1mnbs8w7-0c28-2726-n345-y19o740qc7l3 3asga4d4-9k57-1079-b316-c54a475tl3c8 [employer]ARP [employer] OPTIONS [id number] SP [id number] AARP O [id number] S [id number] MEDICARE C [id number] S [id number] ANSI-Medicare Part B [id number]-[id number] y2tu698l-8601-9i1n-jo07-392766431fb9 ANSI-Commercial 6j074bsc-8839-57br-go2j-pd8y464e890x 2j302wbq-5159-38ak-lg9m-vr3i250o234l ANSI-Medicare Part B [id number]-880s-3651-4434-054ojcez6586 744b685p-386p-8307-9514-232pcxac5185 ANSI-Commercial 762h2zcw-z58i-034a-j902-ja857o736o8c 404b5jmw-r93r-589q-y591-dc256d294n7i ANSI-Medicare Part B [id number]-w65l-z008kk70oj5u [id number]-i06y-q586np95qt1o ANSI-Commercial ub526607-6yl5-1x61-devw-rpizk7948lo8 wp784385-0dv0-3l18-gkiv-jqdmn0882qh9 ANSI-Medicare Part B [id number]-6151-4604-65ix2n6zjd38 2ip2nq82-3t8o-3567-8753-60zg9p8mqk87 ANSI-Commercial 2s835324-34j5-6od6-bl1c-8278245ji1cr 8s109767-60k8-5nw9-co7q-3057450ft6jp ANSI-Commercial 883s605t-167a-28fj-r73n-3a458ihu4844 551x931l-212z-02jm-z17o-3w860jyj4207 ANSI-Medicare Part B [id number]-z1qv114w49z0 x0327n22-30b4-96u7-7py3-f8ey316j10f0 ANSI-Commercial 05268872-1920-315e-q102-9szwi39xe0nu 98887089-7599-774v-z597-4mjod32uh6sq ANSI-Medicare Part B [id number]-v79a-kf3i44f45661 nf0058n2-19s7-98y6-a35h-yb4w59o43076 ANSI-Medicare Part B [id number]-w44b-6236-1669-q01n403woho9 l1nhn314-v88z-8804-6735-q03k286joaf5 Problems, Conditions, and Diagnoses Code Display Name Description Problem Type Effective Dates Data Source(s) E78.5 Hyperlipidemia Hyperlipidemia Problem 07/14/2020 12:00: 00 AM EDT [facility]) K21.9 Gastroesophageal reflux disease Gastroesophageal reflu x disease Problem 07/14/2020 12:00:00 AM EDT [facility]) J44.0 Acute exacerbation of chronic obstructiv e airways disease Acute exacerbation of chronic obstructive airways disease Problem 12:00:00 AM EDT [facility]) Surgeries/Procedures Procedure Description Date Indications Data Source(s) ECG ROUTINE ECG W/LEAST 12 LDS W/I&R 12/14/2020 12:00: 00 AM EDT [facility] ([facility]) OFFICE OUTPATIENT VISIT 25 MINUTES 12/14/2020 12:00:00 AM EDT [facility] ([facility]) OFFICE OUTPATIENT VISIT 25 MINUTES 07/14/2020 12:00:00 AM EDT [facility] ([facility]) Omt 7-8 Body Regions 02/02/2020 12:00:00 AM EDT [facility] ([facility]) Omt 7-8 Body Regions 01/27/2020 12:00:00 AM EDT [facility] ([facility]) Results ID Date Data Source [id number] 12/08/2020 09:44:00 AM EDT [facility] ([facility]) Name Value Range Interpretation Code Description Data Cassidy rce(s) Supporting Document(s) White Blood Count 5.5 10 4.0-10.0 [facility] ([facility]) Hematocrit 46.4 % 36.0-47.0 [facility] ([facility]) Red Blood Count 4.84 10 4.00-5.40 [facility] ([facility]) Hemoglobin 15.4 g/dL 12.0-15.5 [facility] ([facility]) Mean Corpuscular Volume 95.9 fl 80.0-96.0 M [facility] ([facility]) Mean Corpuscular Hemoglobin 31.8 pg 27.0-33.0 [facility] ([facility]) Platelet Count, Automated 247 10 150-450 [facility] ([facility]) Mean Corpuscular HGB Conc 33.2 g/dL 32.0-36.5 [facility] ([facility]) Red Cell Distribution Width 12.5 % 11.5-14.5 [facility] ([facility]) Nucleated Red Blood Cell % 0.0 % 0-0 [facility] ([facility]) ID Date Data Source [id number] 12/08/2020 09:44:00 AM EDT [facility] ([facility]) Name Value Range Interpretation Code Description Data Cassidy rce(s) Supporting Document(s) Triglycerides Level 124 mg/dL [facility] ([facility]) LDL Cholesterol 74 mg/dL [facility] ([facility]) HDL Cholesterol 47 mg/dL [facility] ([facility]) Cholesterol Level 146 mg/dL [facility] ([facility]) Cholesterol Risk Ratio 3.106 [facility] ([facility]) Non-HDL-C 99 mg/dL [facility] ([facility]) ID Date Data Source [id number] 12/08/2020 09:44:00 AM EDT [facility] Name Value Range Interpretation Code Description Data Cassidy rce(s) Supporting Document(s) Glucose, Fasting 92 mg/dL 70-100 [facility] ([facility]) Glomerular Filtration Rate Laboratory test result [facility] ([facility]) <content>Units are mL/min/1.73 m2</content>
<content></content>
<content>Chronic Kidney Disease Staging per NKF:</content>
<content></content>
<content>Stage I & II GFR >=60 Normal to Mildly Decreased</content>
<content>Stage III GFR 30- 59 Moderately Decreased</content>
<content>Stage IV GFR 15-29 Severely Decreased</content>
<content>Stage V GFR <15 Very Little GFR Left</content>
<content>ESRD GFR <15 on [employer]</content>
<content></content> Blood Urea Nitrogen 29 mg/dL 7-18 [facility] ([facility]) Creatinine For GFR 0.89 mg/dL 0.55-1.30 [facility] ([facility]) Potassium Serum 4.4 meq/L 3.5-5.1 [facility] ([facility]) Sodium Level 139 meq/L 136-145 [facility] ([facility]) Carbon Dioxide Level 27 meq/L 21-32 [facility] ([facility] Chloride Level 108 meq/L 98-107 [facility] ([facility]) Anion Gap 4 meq/L 8-16 [facility] ([facility]) Calcium Level 8.6 mg/dL 8.8-10.2 [facility] ([facility]) Ast/Sgot 28 U/L 7-37 [facility] ([facility]) Alt/SGPT 38 U/L 12-78 [facility] Bilirubin,Total 0.5 mg/dL 0.2-1.0 [facility] ([facility]) Alkaline Phosphatase 86 U/L 45-117 [facility] ([facility] Total Protein 6.6 GM/DL 6.4-8.2 [facility] ([facility]) Albumin 3.3 GM/DL 3.2-5.2 [facility] Albumin/Globulin Ratio 1.0 1.2-2.2 [facility] ([facility]) ID Date Data Source [id number] 12/08/2020 09:44:00 AM EDT [facility]) Name Value Range Interpretation Code Description Data Cassidy rce(s) Supporting Document(s) Triglycerides Level 124 mg/dL Normal (applies to non-nume ayaan results) [facility] ([facility]) HDL Cholesterol 47 mg/dL Normal (applies to non-numeric results) [facility] ([facility]) Cholesterol Level 146 mg/dL Normal (applies to non-numeri c results) [facility] ([facility]) Cholesterol Risk Ratio 3.106 Normal (applies to non-n umeric results) [facility] ([facility]) Non-HDL-C 99 mg/dL Normal (applies to non-numeric resul ts) [facility] ([facility]) LDL Cholesterol 74 mg/dL Normal (applies to non-numeric results) [facility] ([facility]) ID Date Data Source [id number] 12/08/2020 09:44:00 AM EDT [facility] ([facility]) Name Value Range Interpretation Code Description Data Cassidy rce(s) Supporting Document(s) Glucose, Fasting 92 mg/dL 70-100 Normal (applies to non-numeric results) [facility] ([facility]) Creatinine For GFR 0.89 mg/dL 0.55-1.30 Normal (applies to non -numeric results) [facility] ([facility]) Blood Urea Nitrogen 29 mg/dL 7-18 Above high normal [facility] ([facility]) Potassium Serum 4.4 meq/L 3.5-5.1 Normal (applies to non-numeric results) [facility] ([facility]) Sodium Level 139 meq/L 136-145 Normal (applies to non-numeric res ults) [facility] ([facility]) Glomerular Filtration Rate Laboratory test result Normal (applies to non- numeric results) [facility] ([facility]) <content>Units are mL/min/1.73 m2</content>
<content></content>
<content>Chronic Kidney Disease Staging per NKF:</content>
<content></content>
<content>Stage I & II GFR >=60 Normal to Mildly Decreased</content>
<content>Stage III GFR 30- 59 Moderately Decreased</content>
<content>Stage IV GFR 15-29 Severely Decreased</content>
<content>Stage V GFR <15 Very Little GFR Left</content>
<content>ESRD GFR <15 on [employer]</content>
<content></content> Chloride Level 108 meq/L 98-107 Above high normal [facility] ([facility]) Calcium Level 8.6 mg/dL 8.8-10.2 Below low normal [facility] ([facility]) Carbon Dioxide Level 27 meq/L 21-32 Normal (applies to non-num shantal results) [facility] ([facility]) Anion Gap 4 meq/L 8-16 Below low normal [facility] ( [facility]) Alt/SGPT 38 U/L 12-78 Normal (applies to non-numeric resul ts) [facility] ([facility]) Ast/Sgot 28 U/L 7-37 Normal (applies to non-numeric resul ts) [facility] ([facility]) Alkaline Phosphatase 86 U/L 45-117 Normal (applies to non-num shantal results) [facility] ([facility]) Total Protein 6.6 GM/DL 6.4-8.2 Normal (applies to non-numeric re sults) [facility] ([facility]) Bilirubin,Total 0.5 mg/dL 0.2-1.0 Normal (applies to non-numeric results) [facility] ([facility]) Albumin/Globulin Ratio 1.0 1.2-2.2 Below low normal [facility] ([facility]) Albumin 3.3 GM/DL 3.2-5.2 Normal (applies to non-numeric resul ts) [facility] ([facility]) ID Date Data Source [id number] 12/08/2020 09:44:00 AM EDT [facility] ([facility]) Name Value Range Interpretation Code Description Data Cassidy rce(s) Supporting Document(s) White Blood Count 5.5 10 4.0-10.0 Normal (applies to non-numeri c results) [facility] ([facility]) Red Blood Count 4.84 10 4.00-5.40 Normal (applies to non-numeric results) [facility] ([facility]) Hemoglobin 15.4 g/dL 12.0-15.5 Normal (applies to non-numeric resul ts) [facility] ([facility]) Mean Corpuscular Volume 95.9 fl 80.0-96.0 Normal ( applies to non-numeric results) [facility] ([facility]) Hematocrit 46.4 % 36.0-47.0 Normal (applies to non-numeric resul ts) [facility] ([facility]) Mean Corpuscular Hemoglobin 31.8 pg 27.0-33.0 Norm al (applies to non-numeric results) [facility] ([facility]) Mean Corpuscular HGB Conc 33.2 g/dL 32.0-36.5 Normal (applies to non-numeric results) [facility] ([facility]) Red Cell Distribution Width 12.5 % 11.5-14.5 Norm al (applies to non-numeric results) [facility] ([facility]) Nucleated Red Blood Cell % 0.0 % 0-0 Normal (applies to n on-numeric results) [facility] ([facility]) Platelet Count, Automated 247 10 150-450 Normal (applies to non-numeric results) [facility] ([facility]) ID Date Data Source [id number] 05/31/2020 12:04:00 AM EST [facility] ([facility]) Name Value Range Interpretation Code Description Data Cassidy rce(s) Supporting Document(s) Blood Culture Laboratory test result [facility] ([facility]) No growth after 72 hours . All specimens observed for 5 days. Results final at that time. No growth after 48 hours . All specimens observed for 5 days. Results final at that time. No growth after 24 hours . All specimens observed for 5 days. Results final at that time. NO GROWTH AFTER 5 DAYS ID Date Data Source [id number] 05/30/2020 10:20:00 PM EST [facility] ([facility]) Name Value Range Interpretation Code Description Data [facility] rce(s) Supporting Document(s) Natriuretic peptide.B prohormone N-Terminal [Mass/volu me] in Serum or Plasma 260 pg/mL Normal (applies to non-numeric results) [facility] ([facility]) ID Date Data Source [id number] 05/30/2020 10:20:00 PM EST [facility] ([facility]) Name Value Range Interpretation Code Description Data Cassidy e(s) Supporting Document(s) Glucose, Fasting 128 mg/dL 70-100 Above high normal [facility]) Blood Urea Nitrogen 20 mg/dL 7-18 Above high normal [facility] ([facility]) Glomerular Filtration Rate 58.0 Normal (applies to n on-numeric results) [facility] ([facility]) <content>Units are mL/min/1.73 m2</content>
<content></content>
<content>Chronic Kidney Disease Staging per NKF:</content>
<content></content>
<content>Stage I & II GFR >=60 Normal to Mildly Decreased</content>
<content>Stage III GFR 30- 59 Moderately Decreased</content>
<content>Stage IV GFR 15-29 Severely Decreased</content>
<content>Stage V GFR <15 Very Little GFR Left</content>
<content>ESRD GFR <15 on [employer]</content>
<content></content> Creatinine For GFR 0.98 mg/dL 0.55-1.30 Normal (applies to non -numeric results) [facility] ([facility]) Potassium Serum 4.2 meq/L 3.5-5.1 Normal (applies to non-numeric results) [facility] ([facility]) Chloride Level 107 meq/L 98-107 Normal (applies to non-numeric r esults) [facility] ([facility]) Sodium Level 142 meq/L 136-145 Normal (applies to non-numeric res ults) [facility] ([facility]) Anion Gap 9 meq/L 8-16 Normal (applies to non-numeric resul ts) [facility] ([facility]) Carbon Dioxide Level 26 meq/L 21-32 Normal (applies to non-num shantal results) [facility] ([facility]) Calcium Level 9.1 mg/dL 8.8-10.2 Normal (applies to non-numeric re sults) [facility] ([facility]) ID Date Data Source [id number] 05/30/2020 10:20:00 PM EST [facility] ([facility]) Name Value Range Interpretation Code Description Data Cassidy rce(s) Supporting Document(s) Ast/Sgot 31 U/L 7-37 Normal (applies to non-numeric resul ts) [facility] ([facility]) Alt/SGPT 51 U/L 12-78 Normal (applies to non-numeric resul ts) [facility] ([facility]) Alkaline Phosphatase 94 U/L 45-117 Normal (applies to non-num shantal results) [facility] ([facility]) Total Protein 7.0 GM/DL 6.4-8.2 Normal (applies to non-numeric re sults) [facility] ([facility]) Bilirubin,Direct 0.1 mg/dL 0.0-0.2 Normal (applies to non-numeric results) [facility] ([facility]) Bilirubin,Total 0.2 mg/dL 0.2-1.0 Normal (applies to non-numeric results) [facility] ([facility]) Albumin 3.6 GM/DL 3.2-5.2 Normal (applies to non-numeric resul ts) [facility] ([facility]) Albumin/Globulin Ratio 1.1 1.2-2.2 Below low normal [facility] ([facility]) ID Date Data Source [id number] 05/30/2020 10:20:00 PM EST [facility] ([facility]) Name Value Range Interpretation Code Description Data Cassidy rce(s) Supporting Document(s) CPK Creatine Phosphokinase 185 U/L 26-192 Avani l (applies to non-numeric results) [facility] ([facility]) MB/CK Relative Index 1.89 Normal (applies to non-num shantal results) [facility] ([facility]) <content>DIAGNOSIS CRITERIA</content>
<content>MMB ng/ml Relative Index (RI)</content>
<content>NON-AMI < or = 5 N/A</content>
<content>DEL CID ZONE > 5 < or = 4</content>
<content>AMI > 5 > 4</content>
<content></content> CK-MB Value Mass 3.5 ng/mL Normal (applies to non-numeric results) [facility] ([facility]) Troponin I 0.02 ng/mL Normal (applies to non-numeric resul ts) [facility] ([facility]) <content>Troponin I Reference Interval f or Siemens [place] LOCI:</content>
<content></content>
<content>99th Percentile= 0.00-0.045 ng/ml</content>
<content></content>
<content>Risk Stratification:</content>
<content><= 0.10 ng/ml Decreased Risk for Adverse Clinical</content>
<content>Events.</content>
<content>0.10-1.50 ng/ml Increased Risk for Adverse Clinical</content>
<content>Events. Evaluation of additional</content>
<content>criterion and/or repeat testing in 2-6</content>
<content>hours is suggested to rule out myocardial</content>
<content>damage.</content>
<content>>= 1.50 ng/ml Indicative of Myocardial Injury.</content>
<content></content> ID Date Data Source [id number] 05/30/2020 09:26:00 PM EST [facility] ([facility]) Name Value Range Interpretation Code Description Data Cassidy rce(s) Supporting Document(s) Laboratory test finding (navigational concept) 7.394 units 7 .350-7.450 Normal (applies to non-numeric results) [facility] ([facility]) Laboratory test finding (navigational concept) 43.7 MMHG 3 5.0-45.0 Normal (applies to non-numeric results) [facility] ([facility]) Laboratory test finding (navigational concept) 130.0 MMHG 8 0-105 Above high normal [facility] ([facility]) Laboratory test finding (navigational concept) 26.7 mmol/L 2 2.0-26.0 Above high normal [facility] ([facility]) Laboratory test finding (navigational concept) 28.0 mmol/L 2 3.0-27.0 Above high normal [facility] ([facility]) Laboratory test finding (navigational concept) 99 % 95-98 Above high normal [facility] ([facility]) Laboratory test finding (navigational concept) 2.0 mmol/L Normal (applies to non-numeric results) [facility] ([facility]) ID Date Data Source [id number] 05/30/2020 09:01:00 PM EST [facility] ([facility]) Name Value Range Interpretation Code Description Data Cassidy rce(s) Supporting Document(s) Respiratory Panel Laboratory test result [facility] ([facility]) This respiratory PCR panel detects Influ pat A H1, H3 and 2009 H1 viruses, Influenza B virus, Resp iratory Syncytial Virus, Human metapneumovirus, Parainfluenza virus 1, 2, 3 and 4, Adenovirus, Rhinovirus/Enterovirus, Coronavirus HKU1, NL63, OC43, 229E and SARS-CoV-2 (COVID 19), Bordetella pertussis, Bordetella parapertussis, Mycoplasma pneumoniae and Chlamydia pneumoniae. NEGATIVE by MULTIPLEXED NUCLEIC ACID PCR SARS-CoV-2 (COVID 19) NEGATIVE - SARS-CoV-2 (COVID19) ID Date Data Source [id number] 05/30/2020 09:01:00 PM EST [facility] ([facility]) Name Value Range Interpretation Code Description Data Cassidy rce(s) Supporting Document(s) Lactate [Mass/volume] in Serum or Plasma 0.8 mmol/L 0.4-2.0 Normal (applies to non-numeric results) [facility] ([facility]) Y/N query for Sepsis Lactate Rule: Y ID Date Data Source [id number] 05/30/2020 09:01:00 PM EST [facility] ([facility]) Name Value Range Interpretation Code Description Data Cassidy rce(s) Supporting Document(s) Red Blood Count 4.87 10 4.00-5.40 Normal (applies to non-numeric results) [facility] ([facility]) White Blood Count 8.2 10 4.0-10.0 Normal (applies to non-numeri c results) [facility] ([facility]) Hematocrit 47.8 % 36.0-47.0 Above high normal [facility] ([facility]) Hemoglobin 15.4 g/dL 12.0-15.5 Normal (applies to non-numeric resul ts) [facility] ([facility]) Mean Corpuscular Volume 98.2 fl 80.0-96.0 Above high normal [facility] ([facility]) Mean Corpuscular Hemoglobin 31.6 pg 27.0-33.0 Norm al (applies to non-numeric results) [facility] ([facility]) Mean Corpuscular HGB Conc 32.2 g/dL 32.0-36.5 Normal (applies to non-numeric results) [facility] ([facility]) Red Cell Distribution Width 12.8 % 11.5-14.5 Norm al (applies to non-numeric results) [facility] ([facility]) Platelet Count, Automated 219 10 150-450 Normal (applies to non-numeric results) [facility] ([facility]) Lymph % 13.4 % 24.0-44.0 Below low normal [facility] ( [facility]) Neutrophils % 72.3 % 36.0-66.0 Above high normal [facility] ([facility]) [place] % 5.7 % 0.0-5.0 Above high normal [facility] ([facility]) Baso % 0.7 % 0.0-1.0 Normal (applies to non-numeric resul ts) [facility] ([facility]) Eos % 7.7 % 0.0-3.0 Above high normal [facility] ([facility]) Immature Granulocyte % 0.2 % 0-3.0 Normal (applies to non-n umeric results) [facility] ([facility]) Neutrophils # 5.9 10 1.5-8.5 Normal (applies to non-numeric re sults) [facility] ([facility]) Nucleated Red Blood Cell % 0.0 % 0-0 Normal (applies to n on-numeric results) [facility] ([facility]) [place] # 0.5 10 0.0-0.8 Normal (applies to non-numeric resul ts) [facility] ([facility]) Lymph # 1.1 10 1.5-5.0 Below low normal [facility] ( [facility]) Baso # 0.1 10 0.0-0.2 Normal (applies to non-numeric resul ts) [facility] ([facility]) Eos # 0.6 10 0.0-0.5 Above high normal [facility] ([facility]) ID Date Data Source [id number] 05/30/2020 09:01:00 PM EST [facility] Name Value Range Interpretation Code Description Data Cassidy rce(s) Supporting Document(s) SARS-CoV-2 (COVID 19) NEGATIVE - SARS-CoV-2 (COVID19) [facility] This lab was ordered by [facility] a nd reported by [facility]. Procedure Social History Code Duration Value Status Description Data Source(s ) Smoking 12/14/2020 12:00:00 AM EDT Patient is a former smoker completed Patient is a former smoker [facility] ([facility]) Smoking 12/14/2020 12:00:00 AM EDT Quit completed Quit [facility] ([facility]) Vital Signs ID Date Data Source UNK Name Value Range Interpretation Code Description Data Source(s) Oxygen saturation in Arterial blood by Pulse oximetry 93 % 93 % [facility] ([facility]) Body height 59.2 [in_i] 59.2 [in_i] [facility] ([facility]) 4'11.20" Body weight 152.12 [lb_av] 152.12 [lb_av] [facility] ([facility]) Body mass index (BMI) [Ratio] 30.5 kg/m2 30.5 k g/m2 [facility] ([facility]) Heart rate 66 /min 66 /min [facility] ([facility]) Respiratory rate 18 /min 18 /min [facility] ( [facility]) Systolic blood pressure 132 mm[Hg] 132 mm[Hg] [facility] ([facility]) Diastolic blood pressure 74 mm[Hg] 74 mm[Hg] [facility] ([facility]) Body temperature 98.1 [degF] 98.1 [degF] [facility] ([facility]) [place] body weight 100 [lb_av] 100 [lb_av] [facility] ([facility]) Body mass index (BMI) [Ratio] 29.3 kg/m2 29.3 k g/m2 [facility] ([facility]) Heart rate 68 /min 68 /min [facility] Regular Body height 60 [in_i] 60 [in_i] [facility] 5'0" Respiratory rate 16 /min 16 /min [facility] ( [facility]) Systolic blood pressure 126 mm[Hg] 126 mm[Hg] [facility] ([facility]) sitting, regular cuff Diastolic blood pressure 76 mm[Hg] 76 mm[Hg] [facility] ([facility]) sitting, regular cuff Systolic blood pressure 124 mm[Hg] 124 mm[Hg] M [facility] ([facility]) sitting Diastolic blood pressure 76 mm[Hg] 76 mm[Hg] [facility] ([facility]) sitting Body weight 150.00 [lb_av] 150.00 [lb_av] [facility] ([facility]) Systolic blood pressure 118 mm[Hg] 118 mm[Hg] [facility] ([facility]) Diastolic blood pressure 72 mm[Hg] 72 mm[Hg] [facility] ([facility]) Body height 59.2 [in_i] 59.2 [in_i] [facility] ([facility]) " Body weight 150.12 [lb_av] 150.12 [lb_av] [facility] ([facility]) Body mass index (BMI) [Ratio] 30.1 kg/m2 30.1 k g/m2 [facility] ([facility]) Heart rate 74 /min 74 /min [facility] ([facility]) Respiratory rate 14 /min 14 /min [facility] ( [facility]) Body temperature 97.6 [degF] 97.6 [degF] [facility] ([facility]) Oxygen saturation in Arterial blood by Pulse oximetry 98 % 98 % [facility] ([facility]) [place] body weight 100 [lb_av] 100 [lb_av] [facility] ([facility]) Systolic blood pressure 128 mm[Hg] 128 mm[Hg] M [facility] ([facility]) Diastolic blood pressure 80 mm[Hg] 80 mm[Hg] [facility] ([facility]) Body height 59.2 [in_i] 59.2 [in_i] [facility] ([facility]) " Body weight 152.00 [lb_av] 152.00 [lb_av] [facility] ([facility]) Body mass index (BMI) [Ratio] 30.5 kg/m2 30.5 k g/m2 [facility] ([facility]) Heart rate 76 /min 76 /min [facility] ([facility]) Respiratory rate 16 /min 16 /min [facility] ( [facility]) Body temperature 97.7 [degF] 97.7 [degF] [facility] ([facility]) Oxygen saturation in Arterial blood by Pulse oximetry 96 % 96 % [facility] ([facility]) [place] body weight 100 [lb_av] 100 [lb_av] [facility] ([facility]) Body weight 153.44 [lb_av] 153.44 [lb_av] ANA Rowe ([facility]) Body mass index (BMI) [Ratio] 30.8 kg/m2 30.8 k g/m2 ANNA MARIE ([facility]) Heart rate 72 /min 72 /min ANNA MARIE ([facility]) Diastolic blood pressure 82 mm[Hg] 82 mm[Hg] ANNA MARIE ([facility]) Body height 59.2 [in_i] 59.2 [in_i] ANNA MARIE ([facility]) 4'11.20" Respiratory rate 18 /min 18 /min ANNA MARIE ( [facility]) Body temperature 97.3 [degF] 97.3 [degF] ANNA MARIE ([facility]) Oxygen saturation in Arterial blood by Pulse oximetry 97 % 97 % ANNA MARIE ([facility]) [place] body weight 100 [lb_av] 100 [lb_av] ANA Rowe ([facility]) Systolic blood pressure 142 mm[Hg] 142 mm[Hg] Annalisa SIMPSON ([facility])
[2021-02-26] MEDS: COMBIVENT RESPIMAT 100-20MCG INHALER 4GM INH SCH ×3 (18:12→18:39)
--- NOTE | 2021-02-26 18:51 | REP ---
INDICATION: DYSPNEA/COUGH. COMPARISON: 12/21/2020 the latest prior also portable TECHNIQUE: Portable FINDINGS: The technique utilized in obtaining the radiograph has magnified the cardiac silhouette and accentuated the interstitial markings. The interstitial markings are again seen to be diffusely increased. The appearance of the basilar interstitial markings has increased and there is a discoid opacity in the left lower lobe. The pleural angles remain sharp. The heart is not enlarged. There is no change in the osseous structures. IMPRESSION: Interstitial edema and left lower lobe subsegmental atelectatic change. <Electronically signed by Tony Emanuel > 02/26/21 [id number]
--- OUTSIDE RECORDS SUMMARY | 2021-02-26 18:59 | CCD ---
Author Author [facility] Organization [facility] Address Unknown Phone Unavailable Care Team Providers Care Multi Media Specialist Name Role Phone Shiloh Simmons Unavailable Unavailable [...] Symenow, Shiloh Bhavya PA Unavailable Unavailable Symenow, Shlioh Bhavya PA Unavailable Unavailable Symenow, Shiloh Bhavya [...] Unavailable Unavailable OBINNA-STAN, GISELE DO Unavailable Unavailable OBINNA-STNA, GISELE DO Unavailable Unavailable OBINNA-STAN, GISELE DO [...] by Article 27-F of the [facility] Public Health law. If you continue you may have access to information: Regarding HIV / AIDS; Provided by facilities licensed or operated by the [facility] Office of Mental Health; or Provided by the [facility] Office for People With Developmental Disabilities. If such information is present, then the following [facility] mandated warning applies: This information has [...] law may result in a fine or halfway sentence or both. A general authorization for the release of medical or other information is NOT sufficient authorization for further disc losure. Family History Family Member Name Family Member Gender Family Member Status Date o f Status Description Data Source(s) Unknown Unknown Problem [facility] ([facility]) Unknown Unknown Problem [facility] ([facility] [employer] [facility] [employer]) Unknown Unknown Problem [facility] ([facility]) Unknown Unknown Problem [facility] ([facility] ) Encounters Encounter Providers Location Date Indications Data Source(s ) Office Visit Attender: Rafa MACIEL [facility] 12/14/2020 02:40:00 PM EDT [facility] ([facility]) Outpatient Attender: Bhavya MACIEL Main Office 12/14/2020 01:00:00 PM EDT [facility] ([facility]) Outpatient Attender: GISELE ARIAS [facility] 07/14/2020 02:00:00 PM EDT [facility] ([facility]) Outpatient Attender: GISELE ARIAS [facility] 02/02/2020 04:20:00 PM EDT [facility] ([facility]) Outpatient Attender: GISELE ARIAS [facility] 01/27/2020 01:10:00 PM EDT [facility] ([facility]) Immunizations Vaccine Date Status Description Data Source(s) COVID-19 VACCINE [facility] 07/19/2020 12:00:00 AM EDT completed [facility] Vaccine Series Complete: YESThis Data wa s Submitted to [facility] Via [employer]. Medications Medication Brand Name Start Date Product Form Dose Route Admi nistrative Instructions Pharmacy Instructions Status Indications Reaction Description Data Source(s) Acetaminophen 325 MG / butalbital 50 MG / Caffeine 40 MG Oral Tablet Butalbital/Acetaminophen/Caffeine 12/14/2020 12:00:00 AM EDT ORAL active [facility] Trelegy Ellipta Trelegy Ellipta 12/13/2020 12:00:00 AM EDT ORAL active [facility] Trelegy Ellipta Trelegy Ellipta 07/14/2020 12:00:00 AM EDT active [facility] ([facility]) Tacrolimus 0.0003 MG/MG Topical Ointment Tacrolimus 021 12:00:00 AM EDT active [facility] ( [facility]) 12 HR Guaifenesin 600 MG Extended Release Oral Tablet [Mucin ex] Mucinex 07/14/2020 12:00:00 AM EDT active [facility] ([facility]) meloxicam 7.5 MG Oral Tablet Meloxicam 02/02/2020 12:00:00 AM EDT ORAL active [facility] ([facility]) Acetaminophen 300 MG / butalbital 50 MG / Caffeine 40 MG Oral Capsule [Fioricet] Fioricet 01/27/2020 12:00:00 AM EDT ORAL complete d [facility] ([facility]) Insurance Providers Payer name Policy type / Coverage type Policy ID Covered republican ID Covered republican's relationship to bravo Policy Bravo Plan Information [id number] A Medicare (Part B) Medicare Primary [id number] Self 1 [id number] [facility] Health Care [facility] Part B [id number] Self [id number] Medicare (Part B) Medicare Primary [id number] [id number] Self [id number] [facility] Health Care [facility] Part B [id number] Self [id number] Medicare [place] Medicare Primary [id number] Self [id number] [facility] Health Care Options [facility] Part B [id number] Self [id number] Medicare (Part B) Medicare Primary [id number] Self 1 [id number] Medicare (Part B) Medicare Primary [id number] Self [facility] Part B [id number] [id number] Self [id number] [facility] Part B [id number] Self MEDICARE [id number] SP [id number] A Medicare (Part B) Medicare Primary [id number] MRN.[id number] Self [id number] [facility] Part B [id number] Self [id number] Medicare Medicare Primary [id number] Self Medicare (Part B) Medicare Primary [id number] Self 1 [id number] [employer] OPTIONS [id number] SP [id number] ANSI-Commercial [id number]-56rp-[id number] [id number]-p758-783o-24dl-4446866z8y3v ANSI-Medicare Part B [id number] ANSI-Commercial [id number]-ssv8-4vqv-8sgq-43jx2x7p0947 3ve89774-gpf8-9ajn-6frk-95pa6z6r2310 ANSI-Medicare Part B [id number]-[id number]-880y-[id number] ANSI-Commercial qm1g4niv-f997-594r-7x45-p3l4224ny528 ag4p1lii-z794-069w-1i53-o7x1689ko344 ANSI-Medicare Part B [id number]-g83w-l0802p3r07or ANSI-Commercial og159243-7514-6625-[id number] mu292131-3383-5086-ip87-63707i717k60 ANSI-Medicare Part B [id number]-[id number]-[id number] ANSI-Commercial 8vzu39x8-8318-97l6-qs91-50t36w57t9p7 3jnf42x6-3345-99e4-ux34-61j68n07r5q6 ANSI-Commercial 81pk539i-273w-528h-5093-nch43fuo5y3n 65ww203k-304z-543v-3061-lqq89ubx0j8n ANSI-Medicare Part B [id number]-[id number]-9660-65g6-4c53pnfc81up 6yz4s7yf-30fm-7695-64i3-5s60bvyg98ar ANSI-Medicare Part B [id number] 84bo14lp-u6q7-6y74-518v-50946176aa18 ANSI-Commercial s48qw529-3483-05ev-0222-53c023p912gg q60hh237-5198-94ny-0644-41x011u557gf ANSI-Medicare Part B [id number]-[id number] py04867s-7h12-97y7-6uf4-x1s111389746 ANSI-Commercial 602ibf99-d87n-93ww-52ej-104m1p9244kd 979lne39-q13o-87sk-28gv-276x8m0478xc BC/BS [facility] B [id number] Family Dependent [id number] BC/BS [facility] Part B [id number] Family Dependent [id number] ANSI-Medicare Part B [id number]-27hr-9080-602jz6mbd94x [id number]-05lq-5143-976oq8xlg57q ANSI-Commercial 82u295vf-843a-0cs1-8k9p-648lub490c50 60d729ty-734z-0qs8-8x9h-507rcg993f54 MEDICARE [id number] A ANSI-Medicare Part B [id number]-712o-[id number] rl78p44h-5723-695c-346f-20ri55i0800q ANSI-Commercial 6bd9ce49-s2c5-6248-41q6-0mu66t08i434 7zi9tk05-p5x6-7409-46o8-6nv62d75h593 ANSI-Commercial t192l299-9537-2990-mmfd-v2m658575649 e813b868-5997-2111-fhcj-w7j696343127 ANSI-Medicare Part B [id number]-q479-2827e3s0l009 8343u4oh-v276-1z09-n936-4472o0h6u813 ANSI-Medicare Part B [id number]-7kj4-u8b0-184d38qi0171 1c903968-952n-9ix2-g9c5-121b43vg2879 ANSI-Commercial 8t6129ix-g3c6-5u4o-1at2-924oukgz771n 6f2022bj-b1e7-4k0r-9hf1-974kwwwe710p ANSI-Commercial 7m53z8o5-l1nl-3030-2s5i-53h49563h06s 2o27a9t3-f2gt-3661-8b6b-83i67154d10i ANSI-Medicare Part B [id number]-a158-524z-5hi2-170e5979v75i ymv5z784-h147-095h-7wm9-025n1434r32l ANSI-Commercial 5m80zd8l-iem2-5h99-26b1-984b6kv6dl7h 0t25ao3u-sgv7-5w10-22x1-215j9uy5sd7w ANSI-Medicare Part B 21zu2e0e-8u2u-5492-980w-5f177m771413 52uj5y1b-6m2e-8066-923w-9z337a910660 ANSI-Commercial 9e9465bw-7322-0imh-7834-u9nz786g3ylx 4h8193hb-7348-2njs-8050-t5mt605e1eyc ANSI-Medicare Part B 4a94mjnp-687p-93qo-8076-91aqr9t4g4sb 2b31tpbe-249a-07ep-8745-48gfx4v3j7dr ANSI-Commercial 8pb9l4uy-h7c0-26e1-03k4-54u1929x0388 3vy6o0zv-v1x4-55y7-00p5-86v1157h5762 ANSI-Medicare Part B 4y50hr94-4fvk-672x-05pc-h2142hb8079d 8a92vb74-8zhr-873j-37ys-e6556nr3429n ANSI-Commercial 6xb7z997-122q-907g-l96g-1u825cwa7237 9oq4h057-591o-640n-x42x-2l411aqf6066 ANSI-Medicare Part B 8p250vsj-09h9-5429-w0r8-41j14lf38s49 4u613frm-46q4-5117-p6z0-49x74in77r69 ANSI-Commercial x3kh32lm-234d-2s67-h0a5-29o26iul09s1 j6hf36zz-466t-7l95-i8e1-89p19dex47t3 ANSI-Medicare Part B 3ku12t10-gao4-074s-t364-12n64572p4rc 4iw07u07-ose1-072j-g112-85q57064h1xa ANSI-Medicare Part B 73ozc76h-0216-7ig7-0yn7-i6q4i70f11x5 00wlo43p-3404-0uz8-7ci2-r2i4w28i57f5 ANSI-Commercial 82i98eik-681r-1l72-t111-o1fn1454go30 73u78frz-124z-8t34-i054-g4qj5657eo23 ANSI-Commercial 172980gu-vj7t-23v0-w06d-j8ais44024qb 334636pw-as9h-36n5-r06x-h0zgv18774wr ANSI-Medicare Part B 12gho3a6-3k59-9b1o-i273-km66lk758l2j 30toa0m4-9z06-4y6g-f243-wg05vu961y8o ANSI-Commercial 92y679f8-283z-7gj1-u33p-88i8w9vz4hn0 12v135d7-675t-2wu6-w17m-46l9a2tz7sr3 ANSI-Medicare Part B mj69f089-pt29-2oa0-b6m4-401b07arg978 cy38c911-yu53-1kp5-k1x5-461w08ybk140 ANSI-Commercial 0s8265v9-6k9o-24l9-6ukb-3e9iz1ai4i7u 5i7338d3-9k4k-16c9-0zzc-0o2nh4fo0l4s ANSI-Medicare Part B y502022n-4ht0-2063-el89-0l3xc7ny306t t162096p-1mv9-4590-ui17-6g9vl8re369j ANSI-Commercial 4ft51e8f-19vg-7274-1660-i3v521fdr1jm 0rj53g7x-91ax-3187-0413-s6e194eem3qm ANSI-Medicare Part B e10g8575-u8b3-6686-p140-n9803ze2p480 e33r4115-x4y7-0631-u477-h5328uy5a369 ANSI-Medicare Part B 39481wi0-8iar-8kn5-7i87-5kvfg20400c3 14962vn4-7ojc-1wy3-2v45-5dhon53027f4 ANSI-Commercial ujg38244-qu01-41o3-bf93-y7wv0aq272ff myj20711-lh56-86f6-ns02-g9ju7zw841cb ANSI-Commercial 610o100x-7s7d-9859-6k46-q23c1p959sxt 891g056w-0y3x-0447-2n57-b47c7d080yum ANSI-Medicare Part B g2p62818-89b8-504a-hg34-9527f0j3793v v3n20315-20t7-668e-lx22-9638g0o5524x ANSI-Medicare Part B 49c7252f-bub7-5640-i5wc-1ng68n6ip913 14r4647u-dpf4-0041-f7ol-2nm27a6ye447 ANSI-Commercial d2444oe2-3e19-9q54-d460-7y8501472bz0 t0014bp5-6i75-0w53-e295-8x9815502uo0 ANSI-Medicare Part B 85l90393-3833-1670-p1z7-594m8l4h1133 75x54274-3982-0877-j2q3-194a6x3e6926 ANSI-Commercial 1cp64949-2snm-5k96-3g64-l1d232gg10l0 1jd94890-4niq-5a20-8u52-s6v128hk57i0 ANSI-Medicare Part B v324777r-o9w5-82o6-f3s5-i456x8sb83w7 s955216q-f0x5-17s1-r8f0-h663y0vn29l1 ANSI-Commercial fbi09tk4-470g-1neu-074h-48e00bg93u4w poh14hh7-942b-4akg-104i-85c34vu04p9m ANSI-Medicare Part B 8e5i6756-15n7-4xm3-55jh-x86454093kby 7z9g6080-30u3-8yk8-53nh-w46141432uev ANSI-Commercial 83w12wu8-8853-3jl4-y6eq-l89qp7e9360d 36b88xk2-0942-8yh7-s2cz-x24bn0k1477q ANSI-Medicare Part B 91y396p6-rlf8-33zc-a663-o3q9igtydc95 76r255l8-qaq6-58mu-o515-e1u0esiebc51 ANSI-Commercial u46mt6g4-sl1d-5463-pmb2-72br17iji33n b52gi9g5-ve0r-9701-vgh3-36uk16lku49e ANSI-Medicare Part B 05091uib-4f45-19rb-778u-6y4ca4e34d64 66561rwg-2y00-27we-375y-7i3ks1p34g80 ANSI-Commercial 042800jq-bv3q-295a-8o34-c91r6jk26m34 664542it-yb9r-236s-1f64-b42i8rr43a82 ANSI-Medicare Part B los8frl5-89k8-0121-ou3g-f01y75bq8a26 gnb7szn3-04i6-6338-gu0c-j73s61zn9x21 MEDICARE [id number] SP 2M94BX7Q X36 ANSI-Commercial c06g60b9-1529-8l28-602l-379zz3k290lj a37i21z8-0442-2n29-131m-211ev2n618la ANSI-Medicare Part B a267425k-12mu-4f34-4o81-29a81c580r2b n134924g-17ut-3z39-6n64-89h75u944i0t ANSI-Medicare Part B k74rj643-u032-208r-09hc-54a3ac22e1vl d42zk377-y159-932q-45if-76n7cz26j8oa ANSI-Commercial q2706m4r-c4w9-069f-hd84-lg8brt3674ps i6689a2u-y3t5-586k-ah23-hd5ahw3068ew ANSI-Commercial 11238629-750k-9923-5871-bj7951777b58 37224943-054t-8732-9806-vq9519007g90 ANSI-Medicare Part B 5s100507-2526-5v77-k4k2-4g5p5nb8lu8g 8e807403-7698-0i58-a8x2-6z8s8fo2jc3q ANSI-Commercial 0y58lqj5-2660-67v3-4wic-uns9kj6mzh33 5a30rad2-1470-15x7-1knn-ddl5hb8ugp40 ANSI-Medicare Part B 071g8848-gw4m-650d-o607-jhw2b7670194 591l7722-nn7f-704o-h477-ufe0c0465386 ANSI-Medicare Part B 578e18o8-7wk9-2023-5228-5k17468y576g 806n05y0-7hu1-8560-9825-9r10152u508i ANSI-Commercial o84281n4-407c-3lf9-57hq-6p174u23a861 y96980c5-589e-7ka0-36cg-5y863z21v616 ANSI-Medicare Part B 546tlhi8-2m75-51ss-1k34-c533c5433hoc 707jokq2-5f01-96gv-0h50-l378a7694ujr ANSI-Commercial 8a069889-qj15-3q86-db5u-57u9070kc9d2 7i422081-ph58-9t33-gv3f-99l2943ov8g2 ANSI-Commercial 82b1nm83-9792-17ca-0848-7l2517k28e21 49c7rs07-8148-16fl-2564-4a3792j52t56 ANSI-Medicare Part B dl80v62p-846s-5x09-n607-r60339gel786 xc93i29t-469k-2l51-e372-w92877fyy988 ANSI-Medicare Part B m38n97s5-122j-4880-i345-497tkb0fn145 m73j58f1-742q-9524-c333-615fug1kc168 ANSI-Commercial w63l3607-056n-8446-8703-8x9o885ah248 w35z7407-434y-4156-7922-4w5x909fg027 [facility] Part B [id number]9.1629.93.0 Self [id number] ANSI-Medicare Part B 2ow8vie2-t366-9529-5205-3m1y48wj00xd 8pu5fpu4-e620-0799-0566-6d1j53dn71uy ANSI-Commercial 6249k3ja-11se-2974-2p53-3n2455b054i0 7254e3pd-19fa-3396-3o34-6h9395j995p3 ANSI-Commercial 620pm41e-42n4-9s4h-rf68-t12876504276 711ta67i-21e0-6e8n-si17-i70804816606 ANSI-Medicare Part B z6xw1df4-1p87-2z8o-08r4-9xe4nz6e80s7 q2ax0xx5-2d41-3n0o-18v1-0bp6dk7q36w2 ANSI-Commercial 098k030e-9k76-102j-7296-10bm537x5d2s 241d779d-7j70-426u-9300-14pq074g6o1o ANSI-Medicare Part B r9754939-69om-529a-ql5u-96zh197505dv e7893613-21yj-134i-jx9u-91si228174rb BC/BS [facility] B [id number] 2.0.1.714337.3.227.99.572.61447.0 Family Dependent H [id number] [facility] Part B [id number] 2.0.1.829825.3.227.99.8646.9 6039.0 Self [id number] Medicare [place] Medicare Primary [id number] 2.0.1.879812.3.227.99.8646.72255.0 Self [id number] [facility] Part B [id number] 2.0.1.170454.3.227.99.8646.9 6039.0 Self [id number] Medicare [place]/NGS Medicare Primary [id number] 2.0.1.685880.3.227.99.8646.07990.0 Self [id number] [facility] Part B [id number] 2..1.867992.3.227.99.8646.9 6039.0 Self [id number] Medicare [place]/NGS Medicare Primary [id number] 2.0.1.479831.3.227.99.8646.91582.0 Self [id number] BC/BS [facility] B [id number] 2.0.1.650785.3.227.99.572.17507.0 Family Dependent H [id number] [facility] Part B [id number] 2.0.1.516527.3.227.99.8646.9 6039.0 Self [id number] Medicare [place]GS Medicare Primary [id number] 2.0.1.633735.3.227.99.8646.69580.0 Self [id number] BC/BS [facility] Part B [id number] 2.0.1.054375.3.227.99.572.36901.0 Family Dependent H [id number] BC/BS [facility] Part B [id number] Family Depen dent [facility] Part B [id number] Self Medicare [place]/NGS Medicare Primary [id number] Self [id number] ANSI-Commercial 8eyew2j0-6z18-2580-r221-n26b269rk4l7 1mxvk8c5-6i74-2436-i785-v62z241vp1s5 [employer] OPTIONS [id number] SP [id number] AARP O [id number] S [id number] MEDICARE C [id number] S [id number] ANSI-Medicare Part B [id number]-2338-8y8u-[id number] u3bm368v-2727-8n4k-cm96-557266163sg7 ANSI-Commercial 3o342qlz-2773-15qi-dy8b-rm7k743l585b 0w220wnh-3294-37re-sm1t-yx9k973y220l ANSI-Medicare Part B [id number]-844o-6787-8836-277yobub7510 358v942h-202h-0470-5685-429iydhj5823 ANSI-Commercial 707k6pok-v93m-730d-u682-jx264o409i0e 273m4wtc-z91q-546s-d469-wg697g419b0f ANSI-Medicare Part B [id number]-b32o-p094gq57uy2p 9u818468-7vz3-8671-w42u-v822ho99eb8w ANSI-Commercial kr724339-1yg1-0w48-fafs-rrllt5999sj9 ch788093-4kz8-3t29-ubcb-vjayq1958fq4 ANSI-Medicare Part B [id number]-1863-2996-92fo4g7hva68 0rq5bd58-0t8o-9627-6860-58sw4y6nah60 ANSI-Commercial 9d840760-14p5-9ri4-xf6g-2990297mh0gr 3y027351-46u5-9fc4-yp2y-4373129yr9nb ANSI-Commercial 480h503l-730l-59lz-t29s-6v444kek9232 561r139b-401f-18dj-e94m-3d197vje2393 ANSI-Medicare Part B [id number]-o6bv901z35d7 v4461a89-99m3-18z6-7cw6-y5bk767r87g3 ANSI-Commercial 97047055-3657-812v-m432-4fyeo30hf5kz 15002229-0398-289b-e945-7lavc31qe2ho ANSI-Medicare Part B [id number]-u15x-[id number] df2756a0-92v2-20i9-l95t-ic9y29x58627 ANSI-Medicare Part B [id number]-c05v-6008-9076-t25r721epie2 w0cgj436-w66b-8230-3663-z96r876eakb1 Problems, Conditions, and Diagnoses Code Display Name Description Problem Type Effective Dates Data Source(s) E78.5 Hyperlipidemia Hyperlipidemia Problem 07/14/2020 12:00: 00 AM EDT [facility]) K21.9 Gastroesophageal reflux disease Gastroesophageal reflu x disease Problem 07/14/2020 12:00:00 AM EDT [facility]) J44.0 Acute exacerbation of chronic obstructiv e airways disease Acute exacerbation of chronic obstructive airways disease Problem 12:00:00 AM EDT [facility]) Surgeries/Procedures Procedure Description Date Indications Data Source(s) ECG ROUTINE ECG W/LEAST 12 LDS W/I&R 12/14/2020 12:00: 00 AM EDT [facility] ([facility]) OFFICE OUTPATIENT VISIT 25 MINUTES 12/14/2020 12:00:00 AM EDT [facility] ([facility]) OFFICE OUTPATIENT VISIT 25 MINUTES 07/14/2020 12:00:00 AM EDT [facility] ([facility]) Omt 7-8 Body Regions 02/02/2020 12:00:00 AM EDT [facility] ([facility]) Omt 7-8 Body Regions 01/27/2020 12:00:00 AM EDT [facility] ([facility]) Results ID Date Data Source [id number] 12/08/2020 09:44:00 AM EDT [facility] ([facility]) Name Value Range Interpretation Code Description Data Cassidy rce(s) Supporting Document(s) White Blood Count 5.5 10 4.0-10.0 [facility] ([facility]) Hematocrit 46.4 % 36.0-47.0 [facility] ([facility]) Red Blood Count 4.84 10 4.00-5.40 [facility] ([facility]) Hemoglobin 15.4 g/dL 12.0-15.5 [facility] ([facility]) Mean Corpuscular Volume 95.9 fl 80.0-96.0 M [facility] ([facility]) Mean Corpuscular Hemoglobin 31.8 pg 27.0-33.0 [facility] ([facility]) Platelet Count, Automated 247 10 150-450 [facility] ([facility]) Mean Corpuscular HGB Conc 33.2 g/dL 32.0-36.5 [facility] ([facility]) Red Cell Distribution Width 12.5 % 11.5-14.5 [facility] ([facility]) Nucleated Red Blood Cell % 0.0 % 0-0 [facility] ([facility]) ID Date Data Source [id number] 12/08/2020 09:44:00 AM EDT [facility] ([facility]) Name Value Range Interpretation Code Description Data Cassidy rce(s) Supporting Document(s) Triglycerides Level 124 mg/dL [facility] ([facility]) LDL Cholesterol 74 mg/dL [facility] ([facility] HDL Cholesterol 47 mg/dL [facility] ([facility]) Cholesterol Level 146 mg/dL [facility] ([facility]) Cholesterol Risk Ratio 3.106 [facility] ([facility]) Non-HDL-C 99 mg/dL [facility] ([facility]) ID Date Data Source [id number] 12/08/2020 09:44:00 AM EDT [facility] Name Value Range Interpretation Code Description Data Cassidy rce(s) Supporting Document(s) Glucose, Fasting 92 mg/dL 70-100 [facility] ([facility]) Glomerular Filtration Rate Laboratory test result [facility] ([facility]) <content>Units are mL/min/1.73 m2</content>
<content></content>
<content>Chronic Kidney Disease Staging per NKF:</content>
<content></content>
<content>Stage I & II GFR >=60 Normal to Mildly Decreased</content>
<content>Stage III GFR 30- 59 Moderately Decreased</content>
<content>Stage IV GFR 15-29 Severely Decreased</content>
<content>Stage V GFR <15 Very Little GFR Left</content>
<content>ESRD GFR <15 on [employer]</content>
<content></content> Blood Urea Nitrogen 29 mg/dL 7-18 [facility] ([facility]) Creatinine For GFR 0.89 mg/dL 0.55-1.30 [facility] ([facility]) Potassium Serum 4.4 meq/L 3.5-5.1 [facility] ([facility]) Sodium Level 139 meq/L 136-145 [facility] ([facility]) Carbon Dioxide Level 27 meq/L 21-32 [facility] ([facility] Chloride Level 108 meq/L 98-107 [facility] ([facility]) Anion Gap 4 meq/L 8-16 [facility] ([facility]) Calcium Level 8.6 mg/dL 8.8-10.2 [facility] ([facility]) Ast/Sgot 28 U/L 7-37 [facility] ([facility]) Alt/SGPT 38 U/L 12-78 [facility] Bilirubin,Total 0.5 mg/dL 0.2-1.0 [facility] ([facility]) Alkaline Phosphatase 86 U/L 45-117 [facility] ([facility] Total Protein 6.6 GM/DL 6.4-8.2 [facility] ([facility]) Albumin 3.3 GM/DL 3.2-5.2 [facility] Albumin/Globulin Ratio 1.0 1.2-2.2 [facility] ([facility]) ID Date Data Source [id number] 12/08/2020 09:44:00 AM EDT [facility]) Name Value Range Interpretation Code Description Data Cassidy rce(s) Supporting Document(s) Triglycerides Level 124 mg/dL Normal (applies to non-nume ayaan results) [facility] ([facility]) HDL Cholesterol 47 mg/dL Normal (applies to non-numeric results) [facility] ([facility]) Cholesterol Level 146 mg/dL Normal (applies to non-numeri c results) [facility] ([facility]) Cholesterol Risk Ratio 3.106 Normal (applies to non-n umeric results) [facility] ([facility]) Non-HDL-C 99 mg/dL Normal (applies to non-numeric resul ts) [facility] ([facility]) LDL Cholesterol 74 mg/dL Normal (applies to non-numeric results) [facility] ([facility]) ID Date Data Source [id number] 12/08/2020 09:44:00 AM EDT [facility] ([facility]) Name Value Range Interpretation Code Description Data Cassidy rce(s) Supporting Document(s) Glucose, Fasting 92 mg/dL 70-100 Normal (applies to non-numeric results) [facility] ([facility]) Creatinine For GFR 0.89 mg/dL 0.55-1.30 Normal (applies to non -numeric results) [facility] ([facility]) Blood Urea Nitrogen 29 mg/dL 7-18 Above high normal [facility] ([facility]) Potassium Serum 4.4 meq/L 3.5-5.1 Normal (applies to non-numeric results) [facility] ([facility]) Sodium Level 139 meq/L 136-145 Normal (applies to non-numeric res ults) [facility] ([facility]) Glomerular Filtration Rate Laboratory test result Normal (applies to non- numeric results) [facility] ([facility]) <content>Units are mL/min/1.73 m2</content>
<content></content>
<content>Chronic Kidney Disease Staging per NKF:</content>
<content></content>
<content>Stage I & II GFR >=60 Normal to Mildly Decreased</content>
<content>Stage III GFR 30- 59 Moderately Decreased</content>
<content>Stage IV GFR 15-29 Severely Decreased</content>
<content>Stage V GFR <15 Very Little GFR Left</content>
<content>ESRD GFR <15 on CARGO BRACER</content>
<content></content> Chloride Level 108 meq/L 98-107 Above high normal MED E[facility] ([facility]) Calcium Level 8.6 mg/dL 8.8-10.2 Below low normal MEDEN T ([facility]) Carbon Dioxide Level 27 meq/L 21-32 Normal (applies to non-num shantal results) [facility] ([facility]) Anion Gap 4 meq/L 8-16 Below low normal [facility] ( [facility]) Alt/SGPT 38 U/L 12-78 Normal (applies to non-numeric resul ts) [facility] ([facility]) Ast/Sgot 28 U/L 7-37 Normal (applies to non-numeric resul ts) [facility]) Alkaline Phosphatase 86 U/L 45-117 Normal (applies to non-num shantal results) [facility] ([facility]) Total Protein 6.6 GM/DL 6.4-8.2 Normal (applies to non-numeric re sults) [facility] ([facility]) Bilirubin,Total 0.5 mg/dL 0.2-1.0 Normal (applies to non-numeric results) [facility] ([facility]) Albumin/Globulin Ratio 1.0 1.2-2.2 Below low normal [facility] ([facility]) Albumin 3.3 GM/DL 3.2-5.2 Normal (applies to non-numeric resul ts) [facility] ([facility]) ID Date Data Source [id number] 12/08/2020 09:44:00 AM EDT [facility] ([facility] Name Value Range Interpretation Code Description Data Cassidy rce(s) Supporting Document(s) White Blood Count 5.5 10 4.0-10.0 Normal (applies to non-numeri c results) [facility] ([facility]) Red Blood Count 4.84 10 4.00-5.40 Normal (applies to non-numeric results) [facility] ([facility]) Hemoglobin 15.4 g/dL 12.0-15.5 Normal (applies to non-numeric resul ts) [facility] ([facility]) Mean Corpuscular Volume 95.9 fl 80.0-96.0 Normal ( applies to non-numeric results) [facility] ([facility]) Hematocrit 46.4 % 36.0-47.0 Normal (applies to non-numeric resul ts) [facility]) Mean Corpuscular Hemoglobin 31.8 pg 27.0-33.0 Norm al (applies to non-numeric results) [facility] ([facility]) Mean Corpuscular HGB Conc 33.2 g/dL 32.0-36.5 Normal (applies to non-numeric results) [facility] ([facility]) Red Cell Distribution Width 12.5 % 11.5-14.5 Norm al (applies to non-numeric results) [facility] ([facility]) Nucleated Red Blood Cell % 0.0 % 0-0 Normal (applies to n on-numeric results) [facility] ([facility]) Platelet Count, Automated 247 10 150-450 Normal (applies to non-numeric results) [facility] ([facility]) ID Date Data Source [id number] 05/31/2020 12:04:00 AM EST [facility] ([facility]) Name Value Range Interpretation Code Description Data Cassidy rce(s) Supporting Document(s) Blood Culture Laboratory test result [facility] ([facility]) No growth after 72 hours . All specimens observed for 5 days. Results final at that time. No growth after 48 hours . All specimens observed for 5 days. Results final at that time. No growth after 24 hours . All specimens observed for 5 days. Results final at that time. NO GROWTH AFTER 5 DAYS ID Date Data Source [id number] 05/30/2020 10:20:00 PM EST [facility] ([facility]) Name Value Range Interpretation Code Description Data [facility] rce(s) Supporting Document(s) Natriuretic peptide.B prohormone N-Terminal [Mass/volu me] in Serum or Plasma 260 pg/mL Normal (applies to non-numeric results) [facility] ([facility]) ID Date Data Source [id number] 05/30/2020 10:20:00 PM EST [facility] ([facility]) Name Value Range Interpretation Code Description Data Cassidy e(s) Supporting Document(s) Glucose, Fasting 128 mg/dL 70-100 Above high normal [facility] Blood Urea Nitrogen 20 mg/dL 7-18 Above high normal [facility] ([facility]) Glomerular Filtration Rate 58.0 Normal (applies to n on-numeric results) [facility] ([facility]) <content>Units are mL/min/1.73 m2</content>
<content></content>
<content>Chronic Kidney Disease Staging per NKF:</content>
<content></content>
<content>Stage I & II GFR >=60 Normal to Mildly Decreased</content>
<content>Stage III GFR 30- 59 Moderately Decreased</content>
<content>Stage IV GFR 15-29 Severely Decreased</content>
<content>Stage V GFR <15 Very Little GFR Left</content>
<content>ESRD GFR <15 on CARGO BRACER</content>
<content></content> Creatinine For GFR 0.98 mg/dL 0.55-1.30 Normal (applies to non -numeric results) [facility] ([facility]) Potassium Serum 4.2 meq/L 3.5-5.1 Normal (applies to non-numeric results) [facility] ([facility]) Chloride Level 107 meq/L 98-107 Normal (applies to non-numeric r esults) [facility] ([facility]) Sodium Level 142 meq/L 136-145 Normal (applies to non-numeric res ults) [facility] ([facility]) Anion Gap 9 meq/L 8-16 Normal (applies to non-numeric resul ts) [facility] ([facility]) Carbon Dioxide Level 26 meq/L 21-32 Normal (applies to non-num shantal results) [facility] ([facility]) Calcium Level 9.1 mg/dL 8.8-10.2 Normal (applies to non-numeric re sults) [facility] ([facility]) ID Date Data Source [id number] 05/30/2020 10:20:00 PM EST [facility] ([facility]) Name Value Range Interpretation Code Description Data Cassidy rce(s) Supporting Document(s) Ast/Sgot 31 U/L 7-37 Normal (applies to non-numeric resul ts) [facility] ([facility]) Alt/SGPT 51 U/L 12-78 Normal (applies to non-numeric resul ts) [facility] ([facility]) Alkaline Phosphatase 94 U/L 45-117 Normal (applies to non-num shantal results) [facility] ([facility]) Total Protein 7.0 GM/DL 6.4-8.2 Normal (applies to non-numeric re sults) [facility] ([facility]) Bilirubin,Direct 0.1 mg/dL 0.0-0.2 Normal (applies to non-numeric results) [facility] ([facility]) Bilirubin,Total 0.2 mg/dL 0.2-1.0 Normal (applies to non-numeric results) [facility] ([facility]) Albumin 3.6 GM/DL 3.2-5.2 Normal (applies to non-numeric resul ts) [facility] ([facility]) Albumin/Globulin Ratio 1.1 1.2-2.2 Below low normal [facility] ([facility]) ID Date Data Source [id number] 05/30/2020 10:20:00 PM EST [facility] ([facility]) Name Value Range Interpretation Code Description Data Cassidy rce(s) Supporting Document(s) CPK Creatine Phosphokinase 185 U/L 26-192 Avani l (applies to non-numeric results) [facility] ([facility]) MB/CK Relative Index 1.89 Normal (applies to non-num shantal results) [facility] ([facility]) <content>DIAGNOSIS CRITERIA</content>
<content>MMB ng/ml Relative Index (RI)</content>
<content>NON-AMI < or = 5 N/A</content>
<content>DEL CID ZONE > 5 < or = 4</content>
<content>AMI > 5 > 4</content>
<content></content> CK-MB Value Mass 3.5 ng/mL Normal (applies to non-numeric results) [facility] ([facility]) Troponin I 0.02 ng/mL Normal (applies to non-numeric resul ts) [facility] ([facility]) <content>Troponin I Reference Interval f or Siemens [place] LOCI:</content>
<content></content>
<content>99th Percentile= 0.00-0.045 ng/ml</content>
<content></content>
<content>Risk Stratification:</content>
<content><= 0.10 ng/ml Decreased Risk for Adverse Clinical</content>
<content>Events.</content>
<content>0.10-1.50 ng/ml Increased Risk for Adverse Clinical</content>
<content>Events. Evaluation of additional</content>
<content>criterion and/or repeat testing in 2-6</content>
<content>hours is suggested to rule out myocardial</content>
<content>damage.</content>
<content>>= 1.50 ng/ml Indicative of Myocardial Injury.</content>
<content></content> ID Date Data Source [id number] 05/30/2020 09:26:00 PM EST [facility] ([facility]) Name Value Range Interpretation Code Description Data Cassidy rce(s) Supporting Document(s) Laboratory test finding (navigational concept) 7.394 units 7 .350-7.450 Normal (applies to non-numeric results) [facility] ([facility]) Laboratory test finding (navigational concept) 43.7 MMHG 3 5.0-45.0 Normal (applies to non-numeric results) [facility] ([facility]) Laboratory test finding (navigational concept) 130.0 MMHG 8 0-105 Above high normal [facility] ([facility]) Laboratory test finding (navigational concept) 26.7 mmol/L 2 2.0-26.0 Above high normal [facility] ([facility]) Laboratory test finding (navigational concept) 28.0 mmol/L 2 3.0-27.0 Above high normal [facility] ([facility]) Laboratory test finding (navigational concept) 99 % 95-98 Above high normal [facility] ([facility]) Laboratory test finding (navigational concept) 2.0 mmol/L Normal (applies to non-numeric results) [facility] ([facility]) ID Date Data Source [id number] 05/30/2020 09:01:00 PM EST [facility] ([facility]) Name Value Range Interpretation Code Description Data Cassidy rce(s) Supporting Document(s) Respiratory Panel Laboratory test result [facility] ([facility]) This respiratory PCR panel detects Influ pat [...] - SARS-CoV-2 (COVID19) ID Date Data Source [id number] 05/30/2020 09:01:00 PM EST [facility] ([facility]) Name Value Range Interpretation Code Description Data Cassidy rce(s) Supporting Document(s) Lactate [Mass/volume] in Serum or Plasma 0.8 mmol/L 0.4-2.0 Normal (applies to non-numeric results) [facility] ([facility]) Y/N query for Sepsis Lactate Rule: Y ID Date Data Source [id number] 05/30/2020 09:01:00 PM EST [facility] ([facility]) Name Value Range Interpretation Code Description Data Cassidy rce(s) Supporting Document(s) Red Blood Count 4.87 10 4.00-5.40 Normal (applies to non-numeric results) [facility] ([facility]) White Blood Count 8.2 10 4.0-10.0 Normal (applies to non-numeri c results) [facility] ([facility]) Hematocrit 47.8 % 36.0-47.0 Above high normal [facility] ([facility]) Hemoglobin 15.4 g/dL 12.0-15.5 Normal (applies to non-numeric resul ts) [facility] ([facility]) Mean Corpuscular Volume 98.2 fl 80.0-96.0 Above high normal [facility] ([facility]) Mean Corpuscular Hemoglobin 31.6 pg 27.0-33.0 Norm al (applies to non-numeric results) [facility] ([facility]) Mean Corpuscular HGB Conc 32.2 g/dL 32.0-36.5 Normal (applies to non-numeric results) [facility] ([facility]) Red Cell Distribution Width 12.8 % 11.5-14.5 Norm al (applies to non-numeric results) [facility] ([facility]) Platelet Count, Automated 219 10 150-450 Normal (applies to non-numeric results) [facility] ([facility]) Lymph % 13.4 % 24.0-44.0 Below low normal [facility] ( [facility]) Neutrophils % 72.3 % 36.0-66.0 Above high normal [facility] NT ([facility]) Arthur % 5.7 % 0.0-5.0 Above high normal [facility] ([facility]) Baso % 0.7 % 0.0-1.0 Normal (applies to non-numeric resul ts) [facility] ([facility]) Eos % 7.7 % 0.0-3.0 Above high normal [facility] ([facility]) Immature Granulocyte % 0.2 % 0-3.0 Normal (applies to non-n umeric results) [facility] ([facility]) Neutrophils # 5.9 10 1.5-8.5 Normal (applies to non-numeric re sults) [facility] ([facility]) Nucleated Red Blood Cell % 0.0 % 0-0 Normal (applies to n on-numeric results) [facility] ([facility]) Arthur # 0.5 10 0.0-0.8 Normal (applies to non-numeric resul ts) [facility] ([facility]) Lymph # 1.1 10 1.5-5.0 Below low normal [facility] ( [facility]) Baso # 0.1 10 0.0-0.2 Normal (applies to non-numeric resul ts) [facility] ([facility]) Eos # 0.6 10 0.0-0.5 Above high normal [facility] ([facility]) ID Date Data Source [id number] 05/30/2020 09:01:00 PM EST [facility] Name Value Range Interpretation Code Description Data Cassidy rce(s) Supporting Document(s) SARS-CoV-2 (COVID 19) NEGATIVE - SARS-CoV-2 (COVID19) [facility] This lab was ordered by [facility] a nd reported by [facility]. Procedure Social History Code Duration Value Status Description Data Source(s ) Smoking 12/14/2020 12:00:00 AM EDT Patient is a former smoker completed Patient is a former smoker [facility] ([facility]) Smoking 12/14/2020 12:00:00 AM EDT Quit completed Quit [facility] ([facility]) Vital Signs ID Date Data Source UNK Name Value Range Interpretation Code Description Data Source(s) Body mass index (BMI) [Ratio] 30.5 kg/m2 30.5 k g/m2 [facility] ([facility]) Oxygen saturation in Arterial blood by Pulse oximetry 93 % 93 % [facility] ([facility]) Heart rate 66 /min 66 /min [facility] ([facility]) Respiratory rate 18 /min 18 /min [facility] ( [facility]) Systolic blood pressure 132 mm[Hg] 132 mm[Hg] [facility] ([facility]) Diastolic blood pressure 74 mm[Hg] 74 mm[Hg] [facility] ([facility]) Body temperature 98.1 [degF] 98.1 [degF] [facility] ([facility]) [place] body weight 100 [lb_av] 100 [lb_av] [facility] T ([facility]) Body height 59.2 [in_i] 59.2 [in_i] [facility] ([facility]) 4'11.20" Body weight 152.12 [lb_av] 152.12 [lb_av] [facility] T ([facility]) Body mass index (BMI) [Ratio] 29.3 kg/m2 29.3 k g/m2 [facility] ([facility]) Body height 60 [in_i] 60 [in_i] [facility] 5'0" Respiratory rate 16 /min 16 /min [facility] ( [facility]) Systolic blood pressure 126 mm[Hg] 126 mm[Hg] M EDENT ([facility]) sitting, regular cuff Heart rate 68 /min 68 /min [facility] Regular Diastolic blood pressure 76 mm[Hg] 76 mm[Hg] [facility] ([facility]) sitting, regular cuff Systolic blood pressure 124 mm[Hg] 124 mm[Hg] M EDENT ([facility]) sitting Diastolic blood pressure 76 mm[Hg] 76 mm[Hg] [facility] ([facility]) sitting Body weight 150.00 [lb_av] 150.00 [lb_av] [facility] T ([facility]) Systolic blood pressure 118 mm[Hg] 118 mm[Hg] [facility] ([facility]) Diastolic blood pressure 72 mm[Hg] 72 mm[Hg] [facility] ([facility]) Body height 59.2 [in_i] 59.2 [in_i] [facility] ([facility]) " Body weight 150.12 [lb_av] 150.12 [lb_av] [facility] T ([facility]) Body mass index (BMI) [Ratio] 30.1 kg/m2 30.1 k g/m2 [facility] ([facility]) Heart rate 74 /min 74 /min [facility] ([facility]) Respiratory rate 14 /min 14 /min [facility] ( [facility]) Body temperature 97.6 [degF] 97.6 [degF] [facility] ([facility]) Oxygen saturation in Arterial blood by Pulse oximetry 98 % 98 % [facility] ([facility]) [place] body weight 100 [lb_av] 100 [lb_av] [facility] T ([facility]) Systolic blood pressure 128 mm[Hg] 128 mm[Hg] M EDENT ([facility]) Diastolic blood pressure 80 mm[Hg] 80 mm[Hg] [facility] ([facility]) Body height 59.2 [in_i] 59.2 [in_i] [facility] ([facility]) " Body weight 152.00 [lb_av] 152.00 [lb_av] [facility] T ([facility]) Body mass index (BMI) [Ratio] 30.5 kg/m2 30.5 k g/m2 [facility] ([facility]) Heart rate 76 /min 76 /min [facility] ([facility]) Respiratory rate 16 /min 16 /min [facility] ( [facility]) Body temperature 97.7 [degF] 97.7 [degF] [facility] ([facility]) Oxygen saturation in Arterial blood by Pulse oximetry 96 % 96 % [facility] ([facility]) [place] body weight 100 [lb_av] 100 [lb_av] [facility] T ([facility]) Body temperature 97.3 [degF] 97.3 [degF] [facility] ([facility]) Body weight 153.44 [lb_av] 153.44 [lb_av] [facility] T ([facility]) Body mass index (BMI) [Ratio] 30.8 kg/m2 30.8 k g/m2 [facility] ([facility]) Heart rate 72 /min 72 /min [facility] ([facility]) Diastolic blood pressure 82 mm[Hg] 82 mm[Hg] ANNA MARIE ([facility]) Body height 59.2 [in_i] 59.2 [in_i] [facility] ([facility]) 4'11.20" Respiratory rate 18 /min 18 /[facility]) [place] body weight 100 [lb_av] 100 [lb_av] ANA T ([facility]) Oxygen saturation in Arterial blood by Pulse oximetry 97 % 97 % ANNA MARIE ([facility]) Systolic blood pressure 142 mm[Hg] 142 mm[Hg] Annalisa SIMPSON ([facility])
[2021-02-26 19:01] LABS: VENOUS BASE EXCESS 2.2 (-2.0-2.0); VENOUS O2 SATURATION 71.6 % (60.0-80.0); VENOUS PARTIAL PRESSURE CO2 33.5 mmHg (38.0-50.0); VENOUS PARTIAL PRESSURE O2 36.7 mmHg (30.0-50.0); VENOUS PH 7.491 UNITS (7.330-7.430); VENOUS STANDARD HCO3 25.8 MEQ/L
[2021-02-26 19:08] LABS: BASO % 0.5 % (0.0-1.0); EOS # 0.1 10^3/uL (0.0-0.5); EOS % 0.6 % (0.0-3.0); HEMATOCRIT 42.6 % (36.0-47.0); HEMOGLOBIN 13.6 g/dl (12.0-15.5); LYMPH # 1.5 10^3/uL (1.5-5.0); LYMPH % 17.6 % (24.0-44.0); MEAN CORPUSCULAR HGB CONC 31.9 g/dl (32.0-36.5); MONO # 0.5 10^3/uL (0.0-0.8); NEUTROPHILS # 6.4 10^3/uL (1.5-8.5); NEUTROPHILS % 74.1 % (36.0-66.0); PLATELET COUNT, AUTOMATED 499 10^3/uL (150-450); RED BLOOD COUNT 4.39 10^6/uL (4.00-5.40); WHITE BLOOD COUNT 8.6 10^3/uL (4.0-10.0)
[2021-02-26 19:37] LABS: INR 0.97; PROTHROMBIN TIME 13.3 SECONDS (12.7-14.5)
[2021-02-26 19:38] LABS: PARTIAL THROMBOPLASTIN TIME 27.6 SECONDS (25.9-37.0)
[2021-02-26 19:42] LABS: ALBUMIN 2.2 GM/DL (3.2-5.2); ALT/SGPT 61 U/L (12-78); BILIRUBIN,DIRECT 0.2 MG/DL (0.0-0.2); BILIRUBIN,TOTAL 0.4 MG/DL (0.2-1.0); BLOOD UREA NITROGEN 15 MG/DL (7-18); CALCIUM LEVEL 9.2 MG/DL (8.8-10.2); CARBON DIOXIDE LEVEL 26 MEQ/L (21-32); CHLORIDE LEVEL 104 MEQ/L (98-107); CK-MB VALUE MASS 2.6 NG/ML (<3.6); CPK CREATINE PHOSPHOKINASE 82 U/L (26-192); CREATININE FOR GFR 0.71 MG/DL (0.55-1.30); GLOMERULAR FILTRATION RATE > 60.0 (>32); GLUCOSE, FASTING 96 MG/DL (70-100); MB/CK RELATIVE INDEX 3.17 (< OR =4); NT-PRO BNP 1796 PG/ML (<450); POTASSIUM SERUM 4.2 MEQ/L (3.5-5.1); SODIUM LEVEL 139 MEQ/L (136-145); THYROID STIMULATING HORMONE 0.753 uIU/ML (0.358-3.740); THYROXINE (T4) 11.7 UG/DL (4.5-12.0); TROPONIN I < 0.02 NG/ML (< 0.10)
[2021-02-26 20:30] VITALS: BP 183/80
[2021-02-26] MEDS ORDERED: FUROSEMIDE 40MG/4ML VIAL (J1940) IV ONE (20:50)
[2021-02-26] MEDS ORDERED: LASI20TA3 PO (21:32)
--- NOTE | 2021-02-27 06:41 | ECGEPIP ---
[facility] - ED Test Date: 2021-02-26 Pat Name: TAMAR GROSS Department: Room: - Gender: Female Respiratory Care Technician: CARMEN : 1940 Requested By: KENNEDY Valentine Order Number: [id number] Reading MD: Arash Prescott Measurements Intervals [place] Rate: 80 P: 65 CT: 140 QRS: 62 QRSD: 82 T: 52 QT: 416 QTc: 479 Interpretive Statements Normal sinus rhythm Nonspecific ST T wave changes Prolonged QTc cw rate decreased Nonspecific ST T wave changes Electronically Signed on 02-27-2021 6:41:26 EST by Arash Prescott
== END 2021-02-26 22:24 | disposition home or self-care (01) ==
LOC: M ED 17:33
DX: I50.9 Heart failure, unspecified (principal); I11.0 Hypertensive heart disease with heart failure; J44.9 Chronic obstructive pulmonary disease, unspecified; G47.33 Obstructive sleep apnea (adult) (pediatric); L40.9 Psoriasis, unspecified; G25.81 Restless legs syndrome; Z87.891 Personal history of nicotine dependence; Z79.899 Other long term (current) drug therapy; Z79.82 Long term (current) use of aspirin; Z88.5 Allergy status to narcotic agent; Z88.8 Allergy status to other drugs, medicaments and biological substances
CPT/HCPCS: 71045; 80048; 80076; 82550; 82553; 82803; 83605; 83880; 84436; 84443; 84484; 85025; 85610; 85730; 87040; 87798; 93005; 93041; 94640; 96374; 99285; J1940

== ENCOUNTER → 2021-03-13 | Outpatient (CLI) | payer MEDICARE ==
[~2021-03-13] MED LIST changes: +LASI20TA3 PO
[2021-03-13 16:21] LABS: BASO % 0.6 % (0.0-1.0); EOS # 0.2 10^3/uL (0.0-0.5); EOS % 3.6 % (0.0-3.0); HEMATOCRIT 50.2 % (36.0-47.0); HEMOGLOBIN 15.8 g/dl (12.0-15.5); LYMPH % 42.7 % (24.0-44.0); MEAN CORPUSCULAR HEMOGLOBIN 31.2 pg (27.0-33.0); MEAN CORPUSCULAR HGB CONC 31.5 g/dl (32.0-36.5); MEAN CORPUSCULAR VOLUME 99.2 fl (80.0-96.0); MONO # 0.4 10^3/uL (0.0-0.8); MONO % 8.7 % (2.0-8.0); NEUTROPHILS # 2.1 10^3/uL (1.5-8.5); NEUTROPHILS % 44.2 % (36.0-66.0); PLATELET COUNT, AUTOMATED 270 10^3/uL (150-450); RED BLOOD COUNT 5.06 10^6/uL (4.00-5.40); WHITE BLOOD COUNT 4.7 10^3/uL (4.0-10.0)
[2021-03-13 16:47] LABS: BLOOD UREA NITROGEN 22 MG/DL (7-18); CALCIUM LEVEL 9.7 MG/DL (8.8-10.2); CARBON DIOXIDE LEVEL 27 MEQ/L (21-32); CHLORIDE LEVEL 103 MEQ/L (98-107); GLOMERULAR FILTRATION RATE > 60.0 (>32); GLUCOSE, FASTING 126 MG/DL (70-100); NT-PRO BNP 113 PG/ML (<450); POTASSIUM SERUM 4.2 MEQ/L (3.5-5.1); SODIUM LEVEL 139 MEQ/L (136-145)
== END ==
LOC: M WUC 13:53
PROVIDERS: ATTEND Family Medicine
DX: R60.0 Localized edema (principal); Z79.899 Other long term (current) drug therapy; Z79.82 Long term (current) use of aspirin

== ENCOUNTER → 2021-06-22 | Outpatient (CLI) | payer MEDICARE ==
[2021-06-22 16:23] LABS: BASO % 0.3 % (0.0-1.0); EOS # 0.1 10^3/uL (0.0-0.5); EOS % 2.4 % (0.0-3.0); HEMATOCRIT 49.4 % (36.0-47.0); HEMOGLOBIN 16.2 g/dl (12.0-15.5); LYMPH # 1.7 10^3/uL (1.5-5.0); LYMPH % 28.9 % (24.0-44.0); MEAN CORPUSCULAR HEMOGLOBIN 31.3 pg (27.0-33.0); MEAN CORPUSCULAR HGB CONC 32.8 g/dl (32.0-36.5); MEAN CORPUSCULAR VOLUME 95.6 fl (80.0-96.0); MONO # 0.4 10^3/uL (0.0-0.8); MONO % 7.3 % (2.0-8.0); NEUTROPHILS # 3.5 10^3/uL (1.5-8.5); NEUTROPHILS % 60.8 % (36.0-66.0); PLATELET COUNT, AUTOMATED 313 10^3/uL (150-450); RED BLOOD COUNT 5.17 10^6/uL (4.00-5.40); WHITE BLOOD COUNT 5.8 10^3/uL (4.0-10.0)
[2021-06-22 16:42] LABS: ALBUMIN 3.6 GM/DL (3.2-5.2); ALT/SGPT 29 U/L (12-78); BILIRUBIN,TOTAL 0.4 MG/DL (0.2-1.0); BLOOD UREA NITROGEN 22 MG/DL (7-18); CARBON DIOXIDE LEVEL 30 MEQ/L (21-32); CHLORIDE LEVEL 108 MEQ/L (98-107); CHOLESTEROL LEVEL 166 MG/DL (<200); CREATININE FOR GFR 0.87 MG/DL (0.55-1.30); FREE T4 1.15 NG/DL (0.76-1.46); GLOMERULAR FILTRATION RATE > 60.0 (>32); GLUCOSE, FASTING 96 MG/DL (70-100); HDL CHOLESTEROL 50 MG/DL (>40); LDL CHOLESTEROL 87 MG/DL (<100); NON-HDL-C 116 MG/DL; NT-PRO BNP 168 PG/ML (<450); POTASSIUM SERUM 4.4 MEQ/L (3.5-5.1); SODIUM LEVEL 142 MEQ/L (136-145); TOTAL PROTEIN 7.3 GM/DL (6.4-8.2); TRIGLYCERIDES LEVEL 146 MG/DL (<150)
== END ==
LOC: M WUC 13:20
PROVIDERS: ATTEND Family Medicine
DX: E78.5 Hyperlipidemia, unspecified (principal); I10 Essential (primary) hypertension; J44.0 Chronic obstructive pulmonary disease with (acute) lower respiratory infection; I25.10 Atherosclerotic heart disease of native coronary artery without angina pectoris

== ENCOUNTER → 2021-12-07 | Outpatient (CLI) | payer MEDICARE ==
[2021-12-07 17:15] LABS: BASO % 0.7 % (0.0-1.0); EOS # 0.1 10^3/uL (0.0-0.5); EOS % 2.9 % (0.0-3.0); HEMATOCRIT 47.4 % (36.0-47.0); HEMOGLOBIN 15.7 g/dl (12.0-15.5); LYMPH # 1.7 10^3/uL (1.5-5.0); LYMPH % 36.2 % (24.0-44.0); MEAN CORPUSCULAR HEMOGLOBIN 32.6 pg (27.0-33.0); MEAN CORPUSCULAR HGB CONC 33.1 g/dl (32.0-36.5); MEAN CORPUSCULAR VOLUME 98.3 fl (80.0-96.0); MONO # 0.4 10^3/uL (0.0-0.8); MONO % 8.8 % (2.0-8.0); NEUTROPHILS # 2.3 10^3/uL (1.5-8.5); PLATELET COUNT, AUTOMATED 233 10^3/uL (150-450); RED BLOOD COUNT 4.82 10^6/uL (4.00-5.40); WHITE BLOOD COUNT 4.6 10^3/uL (4.0-10.0)
[2021-12-07 17:47] LABS: ALBUMIN 3.5 GM/DL (3.2-5.2); ALT/SGPT 32 U/L (12-78); BILIRUBIN,TOTAL 0.5 MG/DL (0.2-1.0); BLOOD UREA NITROGEN 20 MG/DL (7-18); CALCIUM LEVEL 9.3 MG/DL (8.8-10.2); CARBON DIOXIDE LEVEL 26 MEQ/L (21-32); CHLORIDE LEVEL 105 MEQ/L (98-107); CHOLESTEROL LEVEL 146 MG/DL (<200); CHOLESTEROL RISK RATIO 2.654 (<5); CREATININE FOR GFR 0.78 MG/DL (0.55-1.30); FREE T4 1.05 NG/DL (0.76-1.46); GLOMERULAR FILTRATION RATE > 60.0 (>32); GLUCOSE, FASTING 80 MG/DL (70-100); HDL CHOLESTEROL 55 MG/DL (>40); LDL CHOLESTEROL 70 MG/DL (<100); NON-HDL-C 91 MG/DL; POTASSIUM SERUM 4.4 MEQ/L (3.5-5.1); SODIUM LEVEL 138 MEQ/L (136-145); THYROID STIMULATING HORMONE 0.822 uIU/ML (0.358-3.740); TOTAL PROTEIN 6.8 GM/DL (6.4-8.2); TRIGLYCERIDES LEVEL 107 MG/DL (<150)
== END ==
LOC: M WUC 12:53
PROVIDERS: ATTEND Family Medicine
DX: E78.5 Hyperlipidemia, unspecified (principal); I10 Essential (primary) hypertension; D75.1 Secondary polycythemia

== ENCOUNTER → 2022-06-28 | Outpatient (CLI) | payer MEDICARE ==
[~2022-06-28] MED LIST changes: -ENAL-36 PO; +ENAL1TAB50 PO
[2022-06-28 16:45] LABS: BASO % 0.5 % (0.0-1.0); EOS # 0.3 10^3/uL (0.0-0.5); EOS % 4.5 % (0.0-3.0); HEMATOCRIT 47.1 % (36.0-47.0); HEMOGLOBIN 15.3 g/dl (12.0-15.5); LYMPH # 1.7 10^3/uL (1.5-5.0); MEAN CORPUSCULAR HEMOGLOBIN 31.9 pg (27.0-33.0); MEAN CORPUSCULAR HGB CONC 32.5 g/dl (32.0-36.5); MEAN CORPUSCULAR VOLUME 98.3 fl (80.0-96.0); MONO # 0.5 10^3/uL (0.0-0.8); MONO % 8.7 % (2.0-8.0); NEUTROPHILS # 3.6 10^3/uL (1.5-8.5); NEUTROPHILS % 57.7 % (36.0-66.0); PLATELET COUNT, AUTOMATED 245 10^3/uL (150-450); RED BLOOD COUNT 4.79 10^6/uL (4.00-5.40); WHITE BLOOD COUNT 6.2 10^3/uL (4.0-10.0)
[2022-06-28 17:13] LABS: ALBUMIN 3.5 G/DL (3.2-5.2); ALKALINE PHOSPHATASE 94 U/L (46-116); ALT/SGPT 30 U/L (7.0-40); AST/SGOT 27 U/L (<34); BILIRUBIN,TOTAL 0.6 MG/DL (0.3-1.2); BLOOD UREA NITROGEN 21 MG/DL (9-23); CALCIUM LEVEL 9.4 MG/DL (8.3-10.6); CARBON DIOXIDE LEVEL 29 MMOL/L (20-31); CHLORIDE LEVEL 105 MMOL/L (98-107); CHOLESTEROL LEVEL 132 MG/DL (<200); CHOLESTEROL RISK RATIO 3.04 (<5); CREATININE FOR GFR 0.86 MG/DL (0.55-1.30); GLOMERULAR FILTRATION RATE > 60.0 (>32); GLUCOSE, FASTING 96 MG/DL (74-106); HDL CHOLESTEROL 43.3 MG/DL (>40); LDL CHOLESTEROL 68.3 MG/DL (<100); NON-HDL-C 88.7 MG/DL; POTASSIUM SERUM 4.9 MMOL/L (3.5-5.1); SODIUM LEVEL 139 MMOL/L (136-145); TOTAL PROTEIN 6.5 G/DL (5.7-8.2); TRIGLYCERIDES LEVEL 102 MG/DL (<150)
[2022-06-28 17:15] LABS: FREE T4 1.09 NG/DL (0.89-1.76)
[2022-06-28 17:16] LABS: THYROID STIMULATING HORMONE 1.239 uIU/ML (0.55-4.78)
== END ==
LOC: M WUC 13:46
PROVIDERS: ATTEND Family Medicine
DX: E78.5 Hyperlipidemia, unspecified (principal); I10 Essential (primary) hypertension

== ENCOUNTER → 2022-11-21 | Outpatient (REF) | payer MEDICARE ==
[2022-11-21 17:44] LABS: BASO % 0.6 % (0.0-1.0); EOS # 0.2 10^3/uL (0.0-0.5); HEMATOCRIT 44.9 % (36.0-47.0); HEMOGLOBIN 14.7 g/dl (12.0-15.5); LYMPH # 1.7 10^3/uL (1.5-5.0); LYMPH % 32.5 % (24.0-44.0); MEAN CORPUSCULAR HEMOGLOBIN 32.5 pg (27.0-33.0); MEAN CORPUSCULAR HGB CONC 32.7 g/dl (32.0-36.5); MEAN CORPUSCULAR VOLUME 99.1 fl (80.0-96.0); MONO # 0.5 10^3/uL (0.0-0.8); MONO % 8.5 % (2.0-8.0); NEUTROPHILS # 2.9 10^3/uL (1.5-8.5); NEUTROPHILS % 54.2 % (36.0-66.0); PLATELET COUNT, AUTOMATED 248 10^3/uL (150-450); RED BLOOD COUNT 4.53 10^6/uL (4.00-5.40); WHITE BLOOD COUNT 5.3 10^3/uL (4.0-10.0)
[2022-11-21 18:13] LABS: THYROID STIMULATING HORMONE 1.355 uIU/ML (0.55-4.78)
[2022-11-21 18:14] LABS: FREE T4 1.12 NG/DL (0.89-1.76)
[2022-11-21 18:17] LABS: ALBUMIN 3.6 G/DL (3.2-5.2); ALKALINE PHOSPHATASE 81 U/L (46-116); ALT/SGPT 30 U/L (7.0-40); AST/SGOT 26 U/L (<34); BILIRUBIN,TOTAL 0.6 MG/DL (0.3-1.2); BLOOD UREA NITROGEN 26 MG/DL (9-23); CALCIUM LEVEL 9.3 MG/DL (8.3-10.6); CARBON DIOXIDE LEVEL 26 MMOL/L (20-31); CHLORIDE LEVEL 107 MMOL/L (98-107); CHOLESTEROL LEVEL 135 MG/DL (<200); CHOLESTEROL RISK RATIO 3.14 (<5); CREATININE FOR GFR 0.86 MG/DL (0.55-1.30); GLOMERULAR FILTRATION RATE > 60.0 (>32); GLUCOSE, FASTING 95 MG/DL (74-106); HDL CHOLESTEROL 42.9 MG/DL (>40); LDL CHOLESTEROL 64.9 MG/DL (<100); NON-HDL-C 92.1 MG/DL; POTASSIUM SERUM 4.7 MMOL/L (3.5-5.1); SODIUM LEVEL 140 MMOL/L (136-145); TOTAL PROTEIN 6.6 G/DL (5.7-8.2); TRIGLYCERIDES LEVEL 136 MG/DL (<150)
== END ==
LOC: M LAB REF 16:27
PROVIDERS: ATTEND Family Medicine
DX: I10 Essential (primary) hypertension (principal); E78.5 Hyperlipidemia, unspecified

== ENCOUNTER → 2023-02-04 | Outpatient (CLI) | payer MEDICARE | LOC: M WUC 13:30 | PROVIDERS: ATTEND Family Medicine | DX: M25.551 Pain in right hip (principal); M79.672 Pain in left foot; M76.891 Other specified enthesopathies of right lower limb, excluding foot; M20.42 Other hammer toe(s) (acquired), left foot; M19.072 Primary osteoarthritis, left ankle and foot; M77.32 Calcaneal spur, left foot ==

== ENCOUNTER → 2023-03-25 | Outpatient (CLI) | payer MEDICARE ==
[2023-03-25 16:58] LABS: BASO % 0.4 % (0.0-1.0); EOS # 0.1 10^3/uL (0.0-0.5); EOS % 2.3 % (0.0-3.0); HEMATOCRIT 46.2 % (36.0-47.0); HEMOGLOBIN 15.2 g/dl (12.0-15.5); LYMPH # 1.6 10^3/uL (1.5-5.0); LYMPH % 28.5 % (24.0-44.0); MEAN CORPUSCULAR HEMOGLOBIN 32.6 pg (27.0-33.0); MEAN CORPUSCULAR HGB CONC 32.9 g/dl (32.0-36.5); MEAN CORPUSCULAR VOLUME 99.1 fl (80.0-96.0); MONO # 0.5 10^3/uL (0.0-0.8); MONO % 8.1 % (2.0-8.0); NEUTROPHILS # 3.4 10^3/uL (1.5-8.5); NEUTROPHILS % 60.3 % (36.0-66.0); PLATELET COUNT, AUTOMATED 271 10^3/uL (150-450); RED BLOOD COUNT 4.66 10^6/uL (4.00-5.40); WHITE BLOOD COUNT 5.6 10^3/uL (4.0-10.0)
[2023-03-25 17:02] LABS: C REACTIVE PROTEIN QUANTITATIV < 0.40 MG/DL (<1.0)
[2023-03-25 17:03] LABS: RHEUMATOID FACTOR QUANT < 3.5 IU/ML (<14)
[2023-03-25 17:07] LABS: ALBUMIN 3.5 G/DL (3.2-5.2); ALKALINE PHOSPHATASE 79 U/L (46-116); ALT/SGPT 34 U/L (7.0-40); AST/SGOT 23 U/L (<34); BILIRUBIN,TOTAL 0.6 MG/DL (0.3-1.2); BLOOD UREA NITROGEN 31 MG/DL (9-23); CALCIUM LEVEL 9.1 MG/DL (8.3-10.6); CARBON DIOXIDE LEVEL 29 MMOL/L (20-31); CHLORIDE LEVEL 103 MMOL/L (98-107); CHOLESTEROL LEVEL 166 MG/DL (<200); CHOLESTEROL RISK RATIO 3.28 (<5); CREATININE FOR GFR 0.96 MG/DL (0.55-1.30); FREE T4 1.15 NG/DL (0.89-1.76); GLOMERULAR FILTRATION RATE 58.9 (>32); GLUCOSE, FASTING 81 MG/DL (74-106); HDL CHOLESTEROL 50.6 MG/DL (>40); LDL CHOLESTEROL 92.4 MG/DL (<100); NON-HDL-C 115.4 MG/DL; POTASSIUM SERUM 4.6 MMOL/L (3.5-5.1); SODIUM LEVEL 136 MMOL/L (136-145); THYROID STIMULATING HORMONE 1.155 uIU/ML (0.55-4.78); TOTAL PROTEIN 6.5 G/DL (5.7-8.2); TRIGLYCERIDES LEVEL 115 MG/DL (<150)
[2023-03-25 17:08] LABS: URIC ACID 6.6 MG/DL (3.1-7.8)
[2023-03-25 17:15] LABS: ERYTHROCYTE SEDIMENTATION RATE 34 mm/hr (0-30)
== END ==
LOC: M WUC 12:06
PROVIDERS: ATTEND Family Medicine
DX: I10 Essential (primary) hypertension (principal); E78.5 Hyperlipidemia, unspecified; L40.8 Other psoriasis

== ENCOUNTER → 2023-12-02 | Outpatient (CLI) | payer MEDICARE ==
[2023-12-02 16:32] LABS: BASO % 0.5 % (0.0-1.0); EOS # 0.2 10^3/uL (0.0-0.5); EOS % 4.1 % (0.0-3.0); HEMATOCRIT 44.8 % (36.0-47.0); HEMOGLOBIN 14.6 g/dl (12.0-15.5); LYMPH # 1.9 10^3/uL (1.5-5.0); LYMPH % 32.1 % (24.0-44.0); MEAN CORPUSCULAR HEMOGLOBIN 32.6 pg (27.0-33.0); MEAN CORPUSCULAR HGB CONC 32.6 g/dl (32.0-36.5); MONO # 0.6 10^3/uL (0.0-0.8); MONO % 9.5 % (2.0-8.0); NEUTROPHILS # 3.1 10^3/uL (1.5-8.5); NEUTROPHILS % 53.6 % (36.0-66.0); PLATELET COUNT, AUTOMATED 233 10^3/uL (150-450); RED BLOOD COUNT 4.48 10^6/uL (4.00-5.40); WHITE BLOOD COUNT 5.8 10^3/uL (4.0-10.0)
[2023-12-02 16:58] LABS: THYROID STIMULATING HORMONE 1.725 uIU/ML (0.55-4.78)
[2023-12-02 16:59] LABS: ALBUMIN 3.5 G/DL (3.2-5.2); BILIRUBIN,TOTAL 0.5 MG/DL (0.3-1.2); CALCIUM LEVEL 9.4 MG/DL (8.3-10.6); CHOLESTEROL RISK RATIO 3.83 (<5); CREATININE FOR GFR 1.03 MG/DL (0.55-1.30); GLOMERULAR FILTRATION RATE 54.3 (>32); HDL CHOLESTEROL 37.8 MG/DL (>40); LDL CHOLESTEROL 69.6 MG/DL (<100); NON-HDL-C 107.2 MG/DL; POTASSIUM SERUM 4.4 MMOL/L (3.5-5.1); TOTAL PROTEIN 6.4 G/DL (5.7-8.2)
[2023-12-02 17:00] LABS: FREE T4 1.26 NG/DL (0.89-1.76)
== END ==
LOC: M WUC 12:24
PROVIDERS: ATTEND Family Medicine
DX: I10 Essential (primary) hypertension (principal); E78.5 Hyperlipidemia, unspecified; K21.9 Gastro-esophageal reflux disease without esophagitis

== ENCOUNTER → 2024-06-28 | Outpatient (CLI) | payer MEDICARE ==
[~2024-06-28] MED LIST changes: -MULT200T7 PO; +MULT200T9 PO
[2024-06-28 17:31] LABS: BASO % 0.6 % (0.0-1.0); EOS # 0.2 10^3/uL (0.0-0.5); EOS % 2.8 % (0.0-3.0); HEMATOCRIT 46.8 % (36.0-47.0); HEMOGLOBIN 15.2 g/dl (12.0-15.5); LYMPH # 2.4 10^3/uL (1.5-5.0); LYMPH % 37.4 % (24.0-44.0); MEAN CORPUSCULAR HEMOGLOBIN 32.8 pg (27.0-33.0); MEAN CORPUSCULAR HGB CONC 32.5 g/dl (32.0-36.5); MEAN CORPUSCULAR VOLUME 100.9 fl (80.0-96.0); MONO # 0.5 10^3/uL (0.0-0.8); MONO % 8.2 % (2.0-8.0); NEUTROPHILS # 3.2 10^3/uL (1.5-8.5); NEUTROPHILS % 50.8 % (36.0-66.0); PLATELET COUNT, AUTOMATED 233 10^3/uL (150-450); RED BLOOD COUNT 4.64 10^6/uL (4.00-5.40); WHITE BLOOD COUNT 6.3 10^3/uL (4.0-10.0)
[2024-06-28 17:50] LABS: ALBUMIN 3.6 G/DL (3.2-5.2); BILIRUBIN,TOTAL 0.5 MG/DL (0.3-1.2); CHOLESTEROL RISK RATIO 3.79 (<5); CREATININE FOR GFR 1.01 MG/DL (0.55-1.30); GLOMERULAR FILTRATION RATE 55.5 (>32); HDL CHOLESTEROL 41.9 MG/DL (>40); LDL CHOLESTEROL 75.3 MG/DL (<100); NON-HDL-C 117.1 MG/DL; POTASSIUM SERUM 4.6 MMOL/L (3.5-5.1); THYROID STIMULATING HORMONE 2.11 uIU/ML (0.55-4.78); TOTAL PROTEIN 6.8 G/DL (5.7-8.2)
[2024-06-28 17:51] LABS: FREE T4 1.23 NG/DL (0.89-1.76)
== END ==
LOC: M WUC 12:54
PROVIDERS: ATTEND Family Medicine
DX: I10 Essential (primary) hypertension (principal); E78.5 Hyperlipidemia, unspecified

== ENCOUNTER → 2024-11-29 | Outpatient (CLI) | payer MEDICARE ==
[2024-11-29 13:39] LABS: BASO # 0.0 10^3/uL (0.0-0.2); BASO % 0.6 % (0.0-1.0); EOS # 0.2 10^3/uL (0.0-0.5); EOS % 2.8 % (0.0-3.0); LYMPH # 2.2 10^3/uL (1.5-5.0); LYMPH % 34.4 % (24.0-44.0); MONO # 0.7 10^3/uL (0.0-0.8); MONO % 11.1 % (2.0-8.0); NEUTROPHILS # 3.3 10^3/uL (1.5-8.5); NEUTROPHILS % 50.9 % (36.0-66.0); PLATELET COUNT, AUTOMATED 270 10^3/uL (150-450)
[2024-11-29 13:44] LABS: FREE T4 1.43 NG/DL (0.89-1.76)
[2024-11-29 13:47] LABS: ALT/SGPT 24.0 U/L (7.0-40); AST/SGOT 29.0 U/L (<34); CALCIUM LEVEL 9.7 MG/DL (8.3-10.6); CARBON DIOXIDE LEVEL 28.0 MMOL/L (20-31); CHLORIDE LEVEL 101.0 MMOL/L (98-107); CHOLESTEROL LEVEL 143.0 MG/DL (<200); CHOLESTEROL RISK RATIO 3.09 (<5); CREATININE FOR GFR 1.25 MG/DL (0.55-1.30); GLOMERULAR FILTRATION RATE 42.2 (>32); LDL CHOLESTEROL 71.0 MG/DL (<100); NON-HDL-C 96.8 MG/DL; POTASSIUM SERUM 4.6 MMOL/L (3.5-5.1); SODIUM LEVEL 141.0 MMOL/L (136-145); TRIGLYCERIDES LEVEL 129.0 MG/DL (<150)
== END ==
LOC: M WUC 08:08
PROVIDERS: ATTEND Family Medicine
DX: I10 Essential (primary) hypertension (principal); E78.5 Hyperlipidemia, unspecified

== ENCOUNTER → 2024-12-14 | Outpatient (CLI) | payer MEDICARE ==
[2024-12-14 19:32] LABS: CALCIUM LEVEL 9.4 MG/DL (8.3-10.6); CARBON DIOXIDE LEVEL 29.0 MMOL/L (20-31); CHLORIDE LEVEL 104.0 MMOL/L (98-107); CREATININE FOR GFR 0.95 MG/DL (0.55-1.30); GLOMERULAR FILTRATION RATE 58.7 (>32); POTASSIUM SERUM 3.9 MMOL/L (3.5-5.1); SODIUM LEVEL 144.0 MMOL/L (136-145)
== END ==
LOC: M WUC 13:02
PROVIDERS: ATTEND Family Medicine
DX: Z01.818 Encounter for other preprocedural examination (principal); I12.9 Hypertensive chronic kidney disease with stage 1 through stage 4 chronic kidney disease, or unspecified chronic kidney disease

== ENCOUNTER 2025-01-03 10:01 | Day surgery (SDC) | payer MEDICARE ==
[~2025-01-03] VITALS: Ht 152.4 cm; Wt 60.3 kg
[~2025-01-03 10:01] MED LIST changes: +BUTA-198; +ESTR0.059 TD; +FURO40TA2 PO; +LR 1,000 ML IV SCH; +MELO7.5T35 PO; +TREL1AER IN; +VITA100093 PO
[2025-01-03] MEDS: CYCLOPENTOLATE 1% OPHTH SOLN 2 ML BTL OD SCH (10:55)
[2025-01-03] MEDS: FLURBIPROFEN 0.03% OPHTH SOLN 2.5 ML OD SCH (10:55)
[2025-01-03] MEDS: PHENYLEPHRINE 2.5% OPHTH SOL 2ML OD SCH (10:55)
[2025-01-03] MEDS: TETRACAINE 0.5% OPHTH SOLN 4ML OD SCH (10:55)
[2025-01-03] MEDS: LIDOCAINE 1% SDV 5 ML VIAL As Ordered ONE (12:16)
[2025-01-03] MEDS: CEFUROXIME 1 MG/0.1 ML INTRACAMERAL INJ As Ordered ONE (12:17)
[2025-01-03 12:36] VITALS: BP 131/57; TEMP 97.1; O2SAT 95
== END 2025-01-03 12:55 | disposition home or self-care (01) ==
LOC: M SDC 10:01
PROVIDERS: ATTEND Ophthalmology
DX: H25.11 Age-related nuclear cataract, right eye (principal); I25.10 Atherosclerotic heart disease of native coronary artery without angina pectoris; Z95.5 Presence of coronary angioplasty implant and graft; I25.2 Old myocardial infarction; I10 Essential (primary) hypertension; E78.00 Pure hypercholesterolemia, unspecified; J44.9 Chronic obstructive pulmonary disease, unspecified; Z79.899 Other long term (current) drug therapy; Z79.82 Long term (current) use of aspirin; Z90.710 Acquired absence of both cervix and uterus; Z88.5 Allergy status to narcotic agent; Z88.8 Allergy status to other drugs, medicaments and biological substances
CPT/HCPCS: 66984; J0697; J3010; V2632

== ENCOUNTER → 2025-03-07 | Outpatient (CLI) | payer MEDICARE ==
[~2025-03-07] MED LIST changes: -LR 1,000 ML IV SCH
[2025-03-07 16:24] LABS: BASO # 0.0 10^3/uL (0.0-0.2); BASO % 0.3 % (0.0-1.0); EOS # 0.1 10^3/uL (0.0-0.5); EOS % 2.0 % (0.0-3.0); LYMPH # 2.1 10^3/uL (1.5-5.0); LYMPH % 32.7 % (24.0-44.0); MONO # 0.7 10^3/uL (0.0-0.8); MONO % 9.9 % (2.0-8.0); NEUTROPHILS # 3.6 10^3/uL (1.5-8.5); NEUTROPHILS % 54.9 % (36.0-66.0); PLATELET COUNT, AUTOMATED 336 10^3/uL (150-450)
[2025-03-07 16:44] LABS: ALT/SGPT 20.0 U/L (7.0-40); AST/SGOT 27.0 U/L (<34); CALCIUM LEVEL 9.5 MG/DL (8.3-10.6); CARBON DIOXIDE LEVEL 29.0 MMOL/L (20-31); CHLORIDE LEVEL 100.0 MMOL/L (98-107); CHOLESTEROL LEVEL 170.0 MG/DL (<200); CHOLESTEROL RISK RATIO 3.68 (<5); CREATININE FOR GFR 1.05 MG/DL (0.55-1.30); GLOMERULAR FILTRATION RATE 51.8 (>32); LDL CHOLESTEROL 87.5 MG/DL (<100); NON-HDL-C 123.9 MG/DL; POTASSIUM SERUM 4.7 MMOL/L (3.5-5.1); SODIUM LEVEL 141.0 MMOL/L (136-145); TRIGLYCERIDES LEVEL 182.0 MG/DL (<150)
[2025-03-07 16:52] LABS: FREE T4 1.27 NG/DL (0.89-1.76)
== END ==
LOC: M WUC 12:39
PROVIDERS: ATTEND Family Medicine
DX: I10 Essential (primary) hypertension (principal); E78.5 Hyperlipidemia, unspecified